=== PATIENT | male | born 1955 | race Caucasian/White ===

== ENCOUNTER → 2023-05-05 11:27 | Outpatient (REF) | payer MEDICARE, BC, SELFPAY ==
[2023-05-05 11:53] LABS: % Basophils 0.9 % (0-2); % Immature Granulocytes 0.5 % (0-0.5); % Lymphocytes 11.4 % (20.5-51.1); % Monocytes 9.7 % (1.7-9.3); % Neutrophils 75.5 % (42.2-75.2); Absolute Basophils 0.1 10^3/uL (0-0.2); Absolute Eosinophils 0.1 10^3/uL (0-0.7); Absolute Lymphocytes 0.6 10^3/uL (1.2-3.4); Absolute Monocytes 0.5 10^3/uL (0.1-0.6); Absolute Neutrophils 4.2 10^3/uL (1.4-6.5); Hematocrit 32.3 % (39.0-52.0); Hemoglobin 10.8 g/dL (13.0-18.0); Mean Corp Hgb Conc. 33.4 g/dL (33.0-37.0); Mean Corpuscular Hgb 33.2 pg (27.0-31.0); Mean Corpuscular Volume 99.4 fL (80.0-94.0); Nucleated Red Blood Cells % 0 % (-); Platelet Count 157 10^3/uL (130-400); Red Blood Cell Count 3.25 10^6/uL (4.70-6.10); Red Cell Dist. Width 13.8 % (11.5-14.5); White Blood Cell Count 5.5 10^3/uL (4.8-10.8)
[2023-05-05 12:16] LABS: ALT (SGPT) 84 U/L (0-50); AST (SGOT) 40 U/L (17-59); Albumin 4.1 g/dl (3.5-5.0); Alkaline Phosphatase 71 U/L (38-126); Blood Urea Nitrogen 37 mg/dl (9-20); Calcium 9.2 mg/dl (8.4-10.2); Carbon Dioxide 35 mmol/L (22-30); Chloride 94 mmol/L (98-107); Glucose 89 mg/dl (70-99); LDH 150 U/L (120-246); Potassium 4.4 mmol/L (3.5-5.1); Sodium 136 mmol/L (135-145); Total Bilirubin 0.7 mg/dl (0.2-1.3); Total Protein 6.1 g/dl (6.3-8.2); eGFR 7.33
== END ==
LOC: OIDL 11:27
PROVIDERS: ATTENDING PHYSICIAN Internal Medicine Hematology & Oncology
DX: C90.00 Multiple myeloma not having achieved remission (principal)
CPT/HCPCS: 80053; 83615; 85025

== ENCOUNTER → 2023-07-22 12:29 | Outpatient (REF) | payer MEDICARE, BC, OTHER, SELFPAY ==
[2023-07-22 14:03] LABS: Potassium 4.8 mmol/L (3.5-5.1)
== END ==
LOC: OLAB 12:29
PROVIDERS: ATTENDING PHYSICIAN Specialist
DX: N18.6 End stage renal disease (principal)
CPT/HCPCS: 84132

== ENCOUNTER → 2023-08-04 16:10 | Outpatient (REF) | payer MEDICARE, BC, OTHER, SELFPAY ==
[2023-08-04 10:28] LABS: % Basophils 0.9 % (0-2); % Eosinophils 2.1 % (0-6); % Lymphocytes 17.7 % (20.5-51.1); % Monocytes 8.7 % (1.7-9.3); % Neutrophils 70.6 % (42.2-75.2); Absolute Eosinophils 0.1 10^3/uL (0-0.7); Absolute Lymphocytes 0.8 10^3/uL (1.2-3.4); Absolute Monocytes 0.4 10^3/uL (0.1-0.6); Absolute Neutrophils 3.3 10^3/uL (1.4-6.5); Hematocrit 29.5 % (39.0-52.0); Hemoglobin 10.5 g/dL (13.0-18.0); Mean Corp Hgb Conc. 35.6 g/dL (33.0-37.0); Mean Corpuscular Hgb 33.8 pg (27.0-31.0); Mean Corpuscular Volume 94.9 fL (80.0-94.0); Mean Platelet Volume 9.2 fL (7.4-10.4); Platelet Count 125 10^3/uL (130-400); Red Blood Cell Count 3.11 10^6/uL (4.70-6.10); Red Cell Dist. Width 12.8 % (11.5-14.5); White Blood Cell Count 4.7 10^3/uL (4.8-10.8)
[2023-08-04 11:08] LABS: ALT (SGPT) 15 U/L (0-50); AST (SGOT) 18 U/L (17-59); Albumin 4.3 g/dl (3.5-5.0); Alkaline Phosphatase 65 U/L (38-126); Blood Urea Nitrogen 49 mg/dl (9-20); Calcium 9.7 mg/dl (8.4-10.2); Carbon Dioxide 32 mmol/L (22-30); Chloride 92 mmol/L (98-107); Glucose 118 mg/dl (70-99); LDH 156 U/L (120-246); Potassium 4.8 mmol/L (3.5-5.1); Sodium 136 mmol/L (135-145); Total Bilirubin 0.6 mg/dl (0.2-1.3); eGFR 6.89
== END ==
LOC: OIDL 16:10
PROVIDERS: ATTENDING PHYSICIAN Internal Medicine Hematology & Oncology
DX: C90.00 Multiple myeloma not having achieved remission (principal)
CPT/HCPCS: 80053; 83615; 85025

== ENCOUNTER → 2023-08-06 13:05 | Outpatient (REF) | payer MEDICARE, OTHER, SELFPAY | LOC: RAD 13:05 | PROVIDERS: ATTENDING PHYSICIAN Surgery Vascular Surgery; FAMILY PHYSICIAN Family Medicine | DX: I77.0 Arteriovenous fistula, acquired (principal) | CPT/HCPCS: 93990 ==

== ENCOUNTER → 2023-08-27 14:51 | Outpatient (REF) | payer MEDICARE, OTHER, SELFPAY | LOC: HWRAD 14:51 | PROVIDERS: ATTENDING PHYSICIAN Family Medicine | DX: R07.81 Pleurodynia (principal) | CPT/HCPCS: 71101 ==

== ENCOUNTER → 2023-10-23 16:45 | Outpatient (REF) | payer OTHER, SELFPAY ==
[2023-10-23 19:51] LABS: Potassium 5.9 mmol/L (3.5-5.1)
== END ==
LOC: OLAB 16:45
PROVIDERS: ATTENDING PHYSICIAN Specialist
DX: N18.6 End stage renal disease (principal)
CPT/HCPCS: 36415; 84132

== ENCOUNTER 2023-10-26 23:24 | Inpatient (IN) | payer MEDICARE, OTHER, SELFPAY ==
[2023-10-26 16:06] VITALS: BP 144/82
[2023-10-26 16:26] LABS: % Basophils 0.5 % (0-2); % Eosinophils 0.5 % (0-6); % Immature Granulocytes 0.3 % (0-0.5); % Monocytes 5.8 % (1.7-9.3); % Neutrophils 83.9 % (42.2-75.2); Absolute Lymphocytes 0.6 10^3/uL (1.2-3.4); Absolute Monocytes 0.4 10^3/uL (0.1-0.6); Absolute Neutrophils 5.2 10^3/uL (1.4-6.5); Hematocrit 28.9 % (39.0-52.0); Hemoglobin 10.2 g/dL (13.0-18.0); Mean Corp Hgb Conc. 35.3 g/dL (33.0-37.0); Mean Corpuscular Hgb 33.1 pg (27.0-31.0); Mean Corpuscular Volume 93.8 fL (80.0-94.0); Mean Platelet Volume 8.6 fL (7.4-10.4); Nucleated Red Blood Cells % 0 % (-); Platelet Count 128 10^3/uL (130-400); Red Blood Cell Count 3.08 10^6/uL (4.70-6.10); White Blood Cell Count 6.2 10^3/uL (4.8-10.8)
[2023-10-26 17:01] LABS: ALT (SGPT) 51 U/L (0-50); AST (SGOT) 22 U/L (17-59); Albumin 4.3 g/dl (3.5-5.0); Alkaline Phosphatase 74 U/L (38-126); Blood Urea Nitrogen 30 mg/dl (9-20); Calcium 9.5 mg/dl (8.4-10.2); Carbon Dioxide 37 mmol/L (22-30); Chloride 89 mmol/L (98-107); Glucose 154 mg/dl (70-99); Potassium 4.8 mmol/L (3.5-5.1); Sodium 134 mmol/L (135-145); Total Bilirubin 0.4 mg/dl (0.2-1.3); Total Protein 6.1 g/dl (6.3-8.2); eGFR 11.29
[2023-10-26 18:31] VITALS: BMI 31.2
[2023-10-26 19:00] VITALS: BP 154/93
--- NOTE | 2023-10-26 19:10 | ED.GENMED ---
History of Present Illness
General
Chief Complaint: Headache
Source: patient
Exam Limitations: none
Time Seen by Provider: 10/26/23 18:37
History of Present Illness
History of Present Illness:
This is a 67 year old male that comes in with c/o headache. States that this started 2-3 weeks ago and that the pain moves around. State that now it is across his forehead. States that occasionally it is in his Islam or in the back. States that
occasionally he feels he cant get his eye's to line up and he has to work on it. States that he took Tylenol at 1pm. Denies any fever, chills, chest pain, SOB, abd pain, nausea, vomiting, diarrhea, dizziness, urinary burning
Past History
Past History
ED Past Medical History: Arrthythmia (Atrial fib), Cancer (Skin CA), GERD, HTN, Renal failure (Dialysis M-W-F), Other (Multiple Myeloma, Neuropathy, Dizziness, Anemia) and Other (ESRD)
ED Past Surgical History: Cardiac (Mitral valve repair), Orthopedic (Right knee surgery) and Other (Right renal hemorrhage with intra-arterial embolectomy May 2021, Pancreatic cyst)
Social History
Tobacco: Non-smoker
Alcohol: Occasional
Personal:
Living: with family
Employment: Employed
Family History
Family History: Other (Noncontributory)
Review of Systems
Review of Systems
All Other Systems: ROS reviewed and negative except as documented in HPI and ROS
Constitutional: Reports no symptoms; Denies fever or chills
EENT: Reports no symptoms
Respiratory: Reports no symptoms; Denies cough or trouble breathing
Cardiac: Reports no symptoms; Denies chest pain
ABD/GI: Reports no symptoms; Denies abdominal pain, nausea, vomiting or diarrhea
: Reports no symptoms; Denies dysuria or urgency
Musculoskeletal: Reports no symptoms
Skin: Reports no symptoms
Neurological: Reports headache; Denies dizzy
Psychiatric: Reports no symptoms
Phy Exam
General Physical Exam
General Presentation: well appearing and no apparent distress
General age: appears stated age
General Skin: warm and dry
General Habitus: normal
General Mental: alert
General Hydration: appears well hydrated
ENT Exam
ENT Exam: TM's normal, pharynx normal and neck supple
Eye Exam
Eye Exam: EOMI
Cardiovascular Exam
Cardiovascular Exam: regular rate/rhythm, no edema, normal peripheral pulses and other (Murmur)
Pulmonary Exam
Pulmonary Exam: lungs clear, no respiratory distress, no rales, chest non tender, no crackles, no rhonchi and no cough
Gastrointestinal Exam
Gastrointestinal Exam: normal bowel sounds, non tender, soft, no organomegaly, no pulsatile mass and non distended
Musculoskeletal Exam
Musculoskeletal Exam: full ROM and no edema
Skin Exam
Skin Exam: normal color, warm/dry, no rash and no petechia
Psychiatric Exam
Psychiatric Exam: normal mood/affect
Course
Orders/Labs/Results
Orders:
Orders
10/26/23 16:11
Electrocardiogram (*1) Urgent
Reason for Study: Vertigo / Dizzy
EKG- Treatment ONCE
10/26/23 16:19
C-Reactive Protein Urgent
Comment: ADD ON
Complete Blood Count/With Diff Urgent
Comprehensive Metabolic Panel Urgent
Erythrocyte Sed Rate Urgent
Comment: ADD ON
10/26/23 19:09
CT Head W/wo Iv Contrast Urgent
Reason For Exam: headache
Acetaminophen 1000MG/100Ml [Ofirmev] 1,000 mg in 100 ml IV ONCE
Acetaminophen IV Indication:: ED Narcotic Naive Pt-ONCE
Dexamethasone Sod Phosphate [Decadron] 20 mg IV NOW STA
10/26/23 19:10
Add On- LAB Urgent
Tests Added?: Sed rate, CRP
10/26/23 22:35
Neurosurgery Consult Urgent
Consulting Provider: Dalia Stewart
Was physician already notified: Yes
10/26/23 23:00
Flush (0.9% Sodium Chloride) [Flush (Nss)] See Dose Instructions IV PER PROTOCOL
10/26/23 23:04
Admit/Transfer Patient As Directed
Co-Sign Provider:
Level of Care: Inpatient admission
Assign to:: Telemetry
Physician / Group: [email or web address]
Diagnosis: Large sellar mass , FANG
Reason for Telemetry: Arrhythmia
Date to Stop Telemetry: 10/29/23
Time to Stop Telemetry: 11:00
Reason for Hospitalization: Large sellar mass, HX Prx AF
Expected length of stay greater than two midnights?: Yes
ELOS- Estimated Length of Stay in days: 3
I certify the patient meets the requirements for IP care: Yes
10/26/23 23:06
Code Status As Directed
Resuscitation Status: Full Code
10/27/23 00:03
Acetaminophen [Tylenol] 650 mg PO Q4HPRN PRN
Bisacodyl [Dulcolax] 10 mg RECTAL [id number] PRN
Docusate W/Senna [Senokot-S] 1 tablet PO BIDPRN PRN
Polyethylene Glycol Powder [Miralax] 17 grams PO DAILYPRN PRN
10/27/23 00:03
Neurosurgery Consult Routine
Consulting Provider: Dalia Stewart
Was physician already notified: Yes
Reason for Consult: Large sellar mass with FANG
Activity As Directed
Activity Level: With Assistance
Pneumatic Compression Sleeves As Directed
Type: Knee high
Vital Signs As Directed
Frequency: Per unit guidelines
Weight As Directed
Frequency: Daily
DX Deep Vein Thrombosis Video Routine
10/27/23 Breakfast
Cholesterol Lowering
At Your Request: Full Participation
Fluid Restriction: 1000 mL/day (33 oz)
Cholesterol Lowering: Sodium, 2 Gram
Potassium, 2 gram
Basic Metabolic Panel IN AM
Complete Blood Count/No Diff IN AM
10/27/23 08:00
Diltiazem Extended Release [Cardizem Cd] 120 mg PO DAILY
Flecainide [Tambocor] 50 mg PO Q12
10/27/23 20:00
Irbesartan [Avapro] 75 mg PO DAILY@1999
10/29/23 11:00
DC Protocol for Telemetry ONCE
Abnormal Lab Results
10/26/23
16:19
RBC 3.08 L 10^6/uL
(4.70-6.10)
Hgb 10.2 L g/dL
(13.0-18.0)
Hct 28.9 L %
(39.0-52.0)
MCH 33.1 H pg
(27.0-31.0)
Plt Count 128 L 10^3/uL
(130-400)
Absolute Lymphs (auto) 0.6 L 10^3/uL
(1.2-3.4)
Neutrophils % 83.9 H %
(42.2-75.2)
Lymphocytes % 9.0 L %
(20.5-51.1)
ESR 24 H mm/hour
(0-20)
Sodium 134 L mmol/L
(135-145)
Chloride 89 L mmol/L
(98-107)
Carbon Dioxide 37 H mmol/L
(22-30)
BUN 30 H mg/dl
(9-20)
Creatinine 5.3 H* mg/dL
(0.7-1.3)
Glucose 154 H mg/dl
(70-99)
ALT 51 H U/L
(0-50)
C-Reactive Protein 11.10 H mg/L
(0.0-10.00)
Total Protein 6.1 L g/dl
(6.3-8.2)
10/26/23 16:19
10/26/23 16:19
H/H low but consistent with prior labs, Anemia, Thrombocytopenia, Chloride low. Carbon dioxide elevation. Chronic renal failure, Glucose nonfasting, Total protein slightly low. Sed rate 24 slightly elevated. CRP 11.10, Slightly elevated.
Vital Signs
Initial and Last Documented VS:
Initial Vital Signs
Temp Pulse Resp BP Pulse Ox
98.9 F 75 18 144/82 97
10/26/23 16:06 10/26/23 16:06 10/26/23 16:06 10/26/23 16:06 10/26/23 16:06
Last Documented Vital Signs
Temp Pulse Resp BP Pulse Ox
98.9 F 89 26 170/97 97
10/26/23 16:06 10/27/23 02:30 10/27/23 02:30 10/27/23 00:31 10/27/23 01:00
MDM/Problems Addressed
Differential Diagnosis Includes:
Headaches, Brain tumor
MDM/Problems Addressed:
This is a 67 year old male that comes in with c/o headache. States that his pain moves around and that sometimes he feels like he has to try and focus his eyes.
Will check labs and get CT head. Will give steroids and Tylenol for pain.
Spoke with Neurosurgery and patient can stay here for further evaluation. Will admit to hospitalist. Back into see patient. Explained that there is a mass seen on the CT scan and this will need further evaluaiton.
Chronic conditions affecting care: Kidney disease
Acute Exacerbation and/or Progression of Chronic Illness: Kidney disease
*Radiology
Radiology exam reviewed: radiology read reviewed (CT head-NO acute intracranial abnormality noted. Large sellar mass with diferential including craniopharyngiioma, pituitary macroadenoma, meningioma or less likely metastasis. This could be further
evaluated with contrast-enhanced MRI brain. )
*Pulse Oximetry
Patient hypoxic: no
*EKG
Interpreted by ED Provider?: Yes
Heart Rate: 64
Rate: normal
Rhythm: sinus
[place]: left axis deviation
Interval: normal interval and long QT
QRS Pattern: normal QRS
Ischemia: no ischemia
*Reading Specialist Interpretation
Rate: normal
Heart Rate: 62
*Critical Care Note
Total Time (30-74mins, 75-104mins- exclusive of procedures): Not Applicable
ED Attending Note
-
Portions of this chart may have been created with voice recognition software.� Occasional wrong word or��sound alike� substitutions may have occurred due to the inherent limitations of voice recognition software.
Discharge Plan
Departure
Patient Disposition: Admit
Date of Disposition: 10/26/23
Time of Disposition: 22:38
Admit to: Med/Surg
Presentation/result/management discussed w/ accepting MD/DO: Hospitalist
Patient with high blood pressure during this ER visit?: Yes
Condition: Good
Covid-19: Not Applicable
Discharge Problem:
Headache, Brain mass
Interventions
Interventions:
*Risk Screen - Suicide Last Done: 10/26/23 18:31
*General Assessment Last Done: 10/26/23 18:31
*Neglect/Abuse Screening Last Done: 10/26/23 18:31
ED- Fall Risk Assessment Last Done: 10/26/23 18:31
*ED COVID-19 Vaccine History Last Done: 10/26/23 18:31
ED- Neurological Assessment Last Done: 10/26/23 18:32
[2023-10-26] MEDS: OFIRMEV 100 IV (19:29)
[2023-10-26] MEDS: DECADRON 20 MG IV (19:29)
[2023-10-26 20:05] LABS: Erythrocyte Sed Rate 24 mm/hour (0-20)
--- NOTE | 2023-10-26 22:58 | HPS.HSE ---
Addendum entered and electronically signed by Georgi Adam MD 10/26/23 23:18:
Correction:
ASSESSMENT & PLAN
Pending Rx reconciliation
Large sellar mass without any signs of elevated increased intracranial pressure
Intermittent issues with focusing the vosion
<del>Persistent</del> <del>FANG</del> No FANG at time of my exam
POS horizontal Nystagmus with Lt Lateral gaze more than Rt lateral gaze - sustained for 3 -4 secs
Original Note:
Family Physician
-
Family Physician: Aguila Escobar
Chief Complaint
-
FANG
History of Present Illness
HPI
67M HX ESRD due to multiple myeloma, CHD on MWF via Rt UEX AVF, ACDz, Prx AFnot on AC seen at ER for FANG;
- acute onset stated 2-3 weeks ago
- aggravated by motion
- unable to focus both eyes
ROS
Denies any fever, chills, chest pain, SOB, abd pain, nausea, vomiting, diarrhea, dizziness, urinary burning
Medical History
Past Medical History
Past Medical History: Reports Other
Additional Past Medical History:
Arrthythmia (Atrial fib), Cancer (Skin CA), GERD, HTN, Renal failure (Dialysis -W-), Other (Multiple Myeloma, Neuropathy, Dizziness, Anemia) and Other (ESRD)
Past Surgical History: Reports Other
Additional Past Surgical History:
Cardiac (Mitral valve repair), Orthopedic (Right knee surgery) and Other (Right renal hemorrhage with intra-arterial embolectomy May 2021, Pancreatic cys
Social History
Tobacco: Non-smoker
Alcohol: Occasional
Personal:
Living: With Family
Family History
Family History: Not pertinent
Allergies / Home Medications
Allergies reflects when Allergies were last updated in [facility].
Home Medications with original date entered in [facility]
Allergy/Medication List:
Allergies
Allergy/AdvReac Type Severity Reaction Status Date / Time
levofloxacin [From Levaquin] Allergy Nausea / Verified 10/26/23 16:09
Vomiting
Home Medications
cinacalcet 30 mg tablet 30 mg PO QPM Kidney Disease 09/20/19
ferric citrate 210 mg iron tablet (Auryxia) 420 mg PO MEALS Kidney Disease 09/20/19
pantoprazole 40 mg tablet,delayed release 40 mg PO DAILY Gastrointestinal issue 09/20/19
acyclovir 200 mg capsule 200 mg PO BID Infection prevention 12/06/19
Aranesp 1 dose IV MOWEFR ANEMIA 02/04/21
pomalidomide 2 mg capsule (Pomalyst) 2 mg PO DAILY multiple myeloma ##0 02/06/21
Empliciti 0 mcg IV MONTHLY Cancer 05/02/21
cholecalciferol (vitamin D3) 50 mcg (2,000 unit) tablet 2,000 units PO DAILY Supplement 06/17/21
diphenhydramine HCl 50 mg/mL injection solution 50 mg IV MONTHLY Chemo premedication 06/17/21
flecainide 50 mg tablet 50 mg PO Q12 Arrhythmia 06/17/21
irbesartan 150 mg tablet 75 mg PO DAILY@2000 Blood pressure 06/17/21
acetaminophen 325 mg tablet 650 mg (2 x 325 mg) PO Q4HPRN PRN mild pain/FANG/temp> 100.4F 06/23/21
diltiazem HCl 120 mg capsule,extended release 24 hr 120 mg PO DAILY #30 caps 06/23/21
docusate sodium 100 mg capsule 100 mg PO BID 06/23/21
polyethylene glycol 3350 17 gram oral powder packet 17 grams PO DAILY 06/23/21
prednisone 20 mg tablet 60 mg (3 x 20 mg) PO DAILY #120 tabs 06/23/21
sennosides 8.6 mg tablet (senna) 2 tab PO HS 06/23/21
Review of Systems
-
Constitutional: Reports No Symptoms
EENT: Reports No Symptoms
Respiratory: Reports No Symptoms
Cardiac: Reports No Symptoms
Abdomen/GI: Reports No Symptoms
: Reports No Symptoms
Musculoskeletal: Reports No Symptoms
Skin: Reports No Symptoms
Neurological: Reports Headache
Endocrine: Reports No Symptoms
Hematologic/Lymphatic: Reports No Symptoms
Psych: Reports No Symptoms
Physical Exam
Vital Signs
Vital Signs
Temp Pulse Resp BP Pulse Ox
98.9 F 60 14 154/93 99
10/26/23 16:06 10/26/23 20:15 10/26/23 20:15 10/26/23 19:00 10/26/23 19:00
Physical Exam
General: Well Developed, Well Nourished and No Apparent Distress
HEENT: NormoCephalic, Moist mucous membranes, Atraumatic and Other (Horizontal Nystagmus with Lt Latwral gaze more than Rt lateral gaze )
Respiratory: Clear
Cardiac: S1/S2 and Regular Rhythm; No Murmur or Rub
GI: Soft, Non Tender, Non Distended and Normal Bowel Sounds; No Organomegaly
Rectal: Deferred by Provider
Musculoskeletal: No Clubbing, No Cyanosis and No Edema
Skin: No Rash
Neuro: Nonfocal/grossly intact
Laboratory Results
-
10/26/23 16:19
10/26/23 16:19
Laboratory Results
Total Bilirubin 0.4 mg/dl (0.2-1.3) 10/26/23 16:19
AST 22 U/L (17-59) 10/26/23 16:19
ALT 51 U/L (0-50) H 10/26/23 16:19
Alkaline Phosphatase 74 U/L (38-126) 10/26/23 16:19
Data Reviewed
-
CT Scan: Report Reviewed by me
Lab Data: Labs Reviewed by me
Old Records: Reviewed
Impression/Plan
-
Reviewed VS: HR 60 on FLORIST HELPER Diltiazem and Fecianide BP 155/95
Data
Hgb 10.2 - baseline mid 10s
ESR 24
Na 134
Cl 89
BIN 30
Cr 5.3 - baseline Cr 7s
BG 154
ALT 51
eGFR 11s
CRP 11
HCT
No acute intracranial abnormality noted.
Large sellar mass with differential including craniopharyngioma, pituitary macroadenoma, meningioma or less likely metastasis. - This could be further evaluated with contrast-enhanced MRI brain.
EKG
NORMAL SINUS RHYTHM
INCOMPLETE RIGHT BUNDLE BRANCH BLOCK
LEFT VENTRICULAR HYPERTROPHY WITH REPOLARIZATION ABNORMALITY ( R in aVL ,
Sokolow-Salazar , Ricki product )
PROLONGED QT
ABNORMAL ECG
WHEN COMPARED WITH ECG OF 17-JUN-2021 04:42,
[place] INTERVAL HAS DECREASED
INCOMPLETE RIGHT BUNDLE BRANCH BLOCK HAS REPLACED RIGHT BUNDLE BRANCH BLOCK
Confirmed by HAROLDO LABOY MD ([id number]) on 10/26/2023 4:58:09 PM
ASSESSMENT & PLAN
Pending Rx reconciliation
Large sellar mass without any signs of elevated increased intracranial pressure
Intermittent issues with focusing the vosion
Persistent FANG
POS horizontal Nystagmus with Lt Lateral gaze more than Rt lateral gaze - sustained for 3 -4 secs
DDX: craniopharyngioma, pituitary macroadenoma, meningioma or less likely metastasis.
- Tylenol PRN
- For contrast-enhanced MRI brain.
- Stable to admit at per N Surgeon
- Neuro Surg consulted
PHX Lt renal hemorrhage
Right Subcapsular Renal Hemorrhage (likely cystic rupture) s/p Rt renal embolization 05/30/21
ESRD on HD
- Stable
- for HD (MW schedule).
- Continue outpatient med regimen including cinacalcet, etc.
- Nephrology : to consult on Thursday
In NSR with SB
HX Prx AF
- Stable. In sinus sarah at present.
- Continue diltiazem and flecainide
Multiple Myeloma
- In clinical remission per patient.
- Remains on maintenance therapy
- followed by Dr. Edmondson.as outpatient.
Anemia of Chronic Disease
- follow Hgb
DVT Px: SCD
Code: Full
IP TLM
[2023-10-27] VITALS (16 sets, daily range): BP systolic 134–171; BP diastolic 77–105; BMI 31.2
[2023-10-27] MEDS: MELATONIN 5 MG PO (01:13)
[2023-10-27 04:42] LABS: Hemoglobin 10.3 g/dL (13.0-18.0); Mean Corp Hgb Conc. 35.5 g/dL (33.0-37.0); Mean Corpuscular Hgb 33.3 pg (27.0-31.0); Mean Corpuscular Volume 93.9 fL (80.0-94.0); Mean Platelet Volume 8.9 fL (7.4-10.4); Platelet Count 140 10^3/uL (130-400); Red Blood Cell Count 3.09 10^6/uL (4.70-6.10); Red Cell Dist. Width 13.8 % (11.5-14.5); White Blood Cell Count 7.1 10^3/uL (4.8-10.8)
[2023-10-27 07:06] LABS: Blood Urea Nitrogen 49 mg/dl (9-20); Calcium 9.9 mg/dl (8.4-10.2); Carbon Dioxide 29 mmol/L (22-30); Chloride 90 mmol/L (98-107); Estimated Creatinine Clearance 11 ml/min; Glucose 128 mg/dl (70-99); Sodium 132 mmol/L (135-145); eGFR 7.56
[2023-10-27] MEDS: CARDIZEM CD 120 MG PO (07:55)
--- NOTE | 2023-10-27 07:56 | W.PN.UPDATE ---
Update Note
Progress Note Update
Cross-coverage(I'm not the primary attending)-->I was notified patient potassium was 7. Noticed patient with end-stage renal disease. Stat EKG, calcium gluconate, Lasix, insulin and D50. Stat consult to nephrology-Discussed with nephrology.
Repeat potassium.
[2023-10-27 08:02] LABS: Glucose - Point of Care 126 mg/dl (70-99)
[2023-10-27] MEDS: DEXTROSE 50% SYRINGE 25 GRAMS IV (08:15)
[2023-10-27] MEDS: CALCIUM GLUCONATE 1000 MG IV (08:15)
[2023-10-27] MEDS: LASIX 20 MG IV (08:15)
[2023-10-27] MEDS: LOKELMA 10 GRAM PO (08:15)
[2023-10-27] MEDS: NOVOLIN R 5 UNITS IV (08:16)
--- NOTE | 2023-10-27 10:10 | W.PN.HOSP.TC ---
Today's Communication/Plan
-
Transfer to tertiary center
Assessment / Plan
Assessment / Plan
Impression:
Presentation with headache and vision changes.
Large optic chiasm mass
Severe hyperkalemia in HD patient
Conditions prior to admission:
Multiple myeloma on immunotherapy.
End-stage renal disease with HD Thursday
Paroxysmal atrial fibrillation.
-Not on anticoagulation due to hemorrhagic complications.
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
Essential hypertension.
Mitral valve repair.
Plan:
Large sellar mass confirmed with enhanced CT scan. Differential diagnosis including craniopharyngioma, pituitary macroadenoma, meningioma or less likely metastatic process.
Neurosurgery recommends transfer to tertiary center for further evaluation and treatment.
Unlikely will able to get an MRI given mitral valve wires in place
End-stage renal disease secondary to multiple myeloma on HD, Thursday
Severe hyperkalemia temporized with insulin, calcium gluconate
Short HD session planned off schedule to treat hyperkalemia
Paroxysmal atrial fibrillation.
Rate/rhythm control with diltiazem, flecainide
Not on anticoagulation due to hemorrhagic complications
Essential hypertension
On diltiazem and Avapro
Unknown clinical significance of ARB in regards to hyperkalemia and anuric patient
Multiple myeloma on immunotherapy, maintenance of prednisone
Prophylactic acyclovir
Anticipated Discharge: 24 - 48 hours
Subjective/Interval History
-
Date of Service: October 27, 2023
Objective Data
-
Labs:
Laboratory Results
10/27/23 10/27/23 10/27/23
04:33 06:22 10:25
WBC 7.1
Hgb 10.3 L
Hct 29.0 L
Plt Count 140
Sodium Cancelled 132 L
Potassium Cancelled 7.0 H* D Pending
Chloride Cancelled 90 L
Carbon Dioxide Cancelled 29
BUN Cancelled 49 H
Creatinine Cancelled 7.4 H*
Glucose Cancelled 128 H
Calcium Cancelled 9.9
10/27/23
12:25
WBC
Hgb
Hct
Plt Count
Sodium
Potassium Pending
Chloride
Carbon Dioxide
BUN
Creatinine
Glucose
Calcium
Vital Signs:
Vital Signs
Temp Pulse Resp BP Pulse Ox
98.9 F 72 13 154/86 97
10/26/23 16:06 10/27/23 06:45 10/27/23 06:45 10/27/23 06:17 10/27/23 01:00
Physical Exam
-
General: Well Developed and No Apparent Distress
HEENT: Normocephalic, Atraumatic and Moist Mucous Membranes
Respiratory: Clear to Auscultation
Cardiac: Regular Rhythm and S1/S2; Negative Murmur, Rub or Gallop
GI: Soft, Nontender, Nondistended and Normal Bowel Sounds; Negative Organomegaly
Rectal: Deferred by Provider
Musculoskeletal: No Clubbing, No Cyanosis and No Edema
Skin: Negative Rash
Neuro: Nonfocal/Grossly Intact
--- NOTE | 2023-10-27 11:10 | CM ---
CM reviewed chart.
CM introduced self and role. Spoke with patient and at bedside.
Dx: large sellar mass
Patient is independent with a cane.
He drives. will provide transportation on discharge.
He lives in a multilevel home. He has 2 steps to enter.
He has 2 sons for support. One in [place] and one local.
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
He denied any +SDOH's.
He received M/W/F HD.
DISCHARGE DISPOSTION:
Transfer to [facility]. Dr. Mckeon in Neuro ICU.
--- NOTE | 2023-10-27 11:18 | CM ---
Addendum entered by Rajni Clifton 10/27/23 11:26:
Spoke with Chantelle at [facility]. She shared that once a bed is available, she will call back to the ED to notify the nurse. CM will relay message to patient's ED bedside RN.
Original Note:
PCP: Aguila Escobar
Pharmacy: [facility] in [place]
--- NOTE | 2023-10-27 11:29 | CM ---
Addendum entered by Rajni Clifton 10/27/23 12:28:
Andrew RN notified that he gave neuro ASSISTANT SALES DIRECTOR at [facility] report. Patient will be going to room 1007. CM called transfer center to confirm. Transfer center confirmed that patient will be going to room 1007, [facility], 10th floor, city side.
Donte, coordinator cardiopulmonary services given room number and directions.
Donte confirmed a supervisor picking crew time of 2pm.
Above information relayed to OSIEL Morales and Dr. Freedman, attending physician.
Number for report (already given):
[phone].
Original Note:
OSIEL Morales, notified that [facility] transfer center will be calling with a bed number once a bed is available.
[2023-10-27 11:36] LABS: Potassium 5.6 mmol/L (3.5-5.1)
--- NOTE | 2023-10-27 15:22 | W.CON.NEPH ---
Consultation
-
Date/Time Consultation Requested: 10/27/2023 7:53AM
Date/Time Consultation Performed: 10/27/2023 3:23PM
Requesting Provider: Bala Wang
Performing Provider: Rose Contreras
Reason for Consultation: ESRD on HD
Medical History
-
Chief Complaint: ESRD on HD
History of Present Illness:
Mr. Booker Cannon is a 67YOM with PMH of ESRD on HD MWF at [facility], Afib, Skin Cancer, GERD, HTN, MM (leading to renal failure), dizziness, anemia who presents to the hospital for headaches and vision changes that started about 2-3 weeks ago.
He was found to have a mass in the optic chiasm and is planned for transfer to a tertiary care center for further management.
Unfortuantely, his K was elevated to 7 on labs this AM. He di recieve temporizing measures and we initiated a 2h/2k HD session for hyperK.
Past Medical History
Afib
Skin cancer
GERD
HTN
ESRD on HD MWF
MM
Neuropathy
dizziness
anemia
Past Surgical History: Cardiac (MVR), Orthopedic (R knee surgery ) and Other (Right renal hemorrhage with intra-arterial embolectomy May 2021, Pancreatic cys)
Social History
Tobacco: Non-Smoker
Alcohol: Occasional
Drug: None
Personal:
Living: With Family
Family History
Family History: Not Pertinent
Allergies / Home Medications
Allergy/AdvReac Type Severity Reaction Status Date / Time
levofloxacin [From Levaquin] Allergy Nausea / Verified 10/26/23 16:09
Vomiting
�Medication �Instructions �Recorded �Confirmed �Type
cinacalcet 30 mg tablet 30 mg PO HS Kidney Disease 09/20/19 10/26/23 History
ferric citrate 210 mg iron tablet 420 mg PO MEALS Kidney Disease 09/20/19 10/26/23 History
(Auryxia)
acyclovir 200 mg capsule 200 mg PO BID Infection prevention 12/06/19 10/26/23 History
irbesartan 150 mg tablet 150 mg PO HS Blood pressure 06/17/21 10/26/23 History
acetaminophen 325 mg tablet 650 mg (2 x 325 mg) PO Q4HPRN PRN 06/23/21 10/26/23 Rx
mild pain/FANG/temp> 100.4F
Mircera 1 dose SC WEEKLY PRN hgb<11 10/26/23 10/26/23 History
diltiazem HCl 240 mg 240 mg PO HS Arrhythmia 10/26/23 10/26/23 History
capsule,extended release 24 hr,
controlled
prednisone 5 mg tablet 5 mg PO DAILY Anti-Inflammatory 10/26/23 10/26/23 History
rosuvastatin 20 mg tablet 20 mg PO HS High Cholesterol 10/26/23 10/26/23 History
Review of Systems
-
History Source: Patient and Family
All other systems: Negative unless noted
Neurological: Dizzy and Headache
Physical Exam
Vital Signs
Vital Signs
Temp Pulse Resp BP Pulse Ox
98.9 F 84 23 134/86 97
10/26/23 16:06 10/27/23 14:00 10/27/23 14:00 10/27/23 13:45 10/27/23 01:00
Lab Results
WBC 7.1 10^3/uL (4.8-10.8) 10/27/23 04:33
RBC 3.09 10^6/uL (4.70-6.10) L 10/27/23 04:33
Hgb 10.3 g/dL (13.0-18.0) L 10/27/23 04:33
Hct 29.0 % (39.0-52.0) L 10/27/23 04:33
Plt Count 140 10^3/uL (130-400) 10/27/23 04:33
Sodium 132 mmol/L (135-145) L 10/27/23 06:22
Chloride 90 mmol/L (98-107) L 10/27/23 06:22
Carbon Dioxide 29 mmol/L (22-30) 10/27/23 06:22
BUN 49 mg/dl (9-20) H 10/27/23 06:22
Creatinine 7.4 mg/dL (0.7-1.3) H* 10/27/23 06:22
eGFR 7.56 10/27/23 06:22
Glucose 128 mg/dl (70-99) H 10/27/23 06:22
Calcium 9.9 mg/dl (8.4-10.2) 10/27/23 06:22
Albumin 4.3 g/dl (3.5-5.0) 10/26/23 16:19
Physical Exam
General: AOx3, No Distress and Nontoxic
HEENT: PERRL, EOMI, Anicteric, Conjunctivae Clear, Ear/Nose Intact, Hearing Normal, Oropharynx Clear/Moist, Dentition Intact, Facial Symmetry, Neck Supple, Trachea Midline, No JVD and No Thyromegaly
Respiratory: Clear, Normal Excursion and Nonlabored Respirations
Cardiac: S1/S2 and Regular Rate/Rhythm
Breast: Deferred by me
Abdomen: Soft, Nontender, Nondistended, Normal Bowel Sounds and No Hepatosplenomegaly
Rectal: Deferred by Provider
Genito-urinary: No Costovertebral Tender
Musculoskeletal: No Clubbing, No Cyanosis and No Edema
Skin: No Rash, Warm, Dry, No Clubbing, No Cyanosis, Normal Turgor and No Bruising
Neuro: Nonfocal/Grossly Intact
Hematologic/Lymphatic: No Cervical Lymphadenopathy
Psych: Mood/afflect pleasant, Insight/judgement good and Appropriate
Vascular Access: AVF
Assessment/Plan
-
Assessment:
ESRD on HD
optic chiasm mass
MM
pAfib
NUNES c/b R subcapsular hemorrhage requiring IR embolization
HTN
MVR
Plan:
-2h/2K HD session today
-plan for HD tomorrow per usual schedule
-likely transfer to [facility] for assistance in management of mass
== END 2023-10-27 22:48 | disposition short-term general hospital (02) | DRG 54 ==
LOC: ED 23:24
PROVIDERS: Emergency Medicine; Hospitalist; ADMITTING PHYSICIAN Internal Medicine; ATTENDING PHYSICIAN Internal Medicine; CONSULT PHYSICIAN Student in an Organized Health Care Education/Training Program; EMERGENCY PHYSICIAN Student in an Organized Health Care Education/Training Program; FAMILY PHYSICIAN Family Medicine
DX: D43.3 Neoplasm of uncertain behavior of cranial nerves (principal); N18.6 End stage renal disease; C90.00 Multiple myeloma not having achieved remission; E78.00 Pure hypercholesterolemia, unspecified; E87.5 Hyperkalemia; I48.0 Paroxysmal atrial fibrillation; I10 Essential (primary) hypertension; I25.10 Atherosclerotic heart disease of native coronary artery without angina pectoris; H55.09 Other forms of nystagmus; D63.0 Anemia in neoplastic disease; D63.1 Anemia in chronic kidney disease; G62.9 Polyneuropathy, unspecified; Z99.2 Dependence on renal dialysis; Z88.1 Allergy status to other antibiotic agents; Z85.828 Personal history of other malignant neoplasm of skin; Z79.61 Long term (current) use of immunomodulator; Z79.52 Long term (current) use of systemic steroids
CPT/HCPCS: 70470; 80048; 80053; 82962; 84132; 85025; 85027; 85652; 86140; 87070; 93005; 96374; 96375; 99285; P9047; Q9967

== ENCOUNTER → 2023-11-10 16:23 | Outpatient (REF) | payer MEDICARE, OTHER, SELFPAY ==
[2023-11-10 11:32] LABS: % Basophils 0.7 % (0-2); % Eosinophils 1.4 % (0-6); % Immature Granulocytes 0.9 % (0-0.5); % Lymphocytes 11.4 % (20.5-51.1); % Monocytes 7.2 % (1.7-9.3); % Neutrophils 78.4 % (42.2-75.2); Absolute Basophils 0.1 10^3/uL (0-0.2); Absolute Eosinophils 0.1 10^3/uL (0-0.7); Absolute Immature Granulocytes 0.1 10^3/uL (0-0.05); Absolute Lymphocytes 0.8 10^3/uL (1.2-3.4); Absolute Monocytes 0.5 10^3/uL (0.1-0.6); Absolute Neutrophils 5.4 10^3/uL (1.4-6.5); Hematocrit 24.1 % (39.0-52.0); Hemoglobin 8.4 g/dL (13.0-18.0); Mean Corp Hgb Conc. 34.9 g/dL (33.0-37.0); Mean Corpuscular Hgb 33.5 pg (27.0-31.0); Mean Platelet Volume 8.4 fL (7.4-10.4); Platelet Count 143 10^3/uL (130-400); Red Blood Cell Count 2.51 10^6/uL (4.70-6.10); Red Cell Dist. Width 13.6 % (11.5-14.5); White Blood Cell Count 6.9 10^3/uL (4.8-10.8)
[2023-11-10 16:03] LABS: ALT (SGPT) 30 U/L (0-50); AST (SGOT) 28 U/L (17-59); Albumin 4.1 g/dl (3.5-5.0); Alkaline Phosphatase 67 U/L (38-126); Blood Urea Nitrogen 37 mg/dl (9-20); Calcium 9.6 mg/dl (8.4-10.2); Carbon Dioxide 33 mmol/L (22-30); Chloride 92 mmol/L (98-107); Glucose 86 mg/dl (70-99); LDH 198 U/L (120-246); Potassium 3.8 mmol/L (3.5-5.1); Sodium 135 mmol/L (135-145); Total Bilirubin 0.7 mg/dl (0.2-1.3); Total Protein 5.8 g/dl (6.3-8.2); eGFR 7.21
== END ==
LOC: OIDL 16:23
PROVIDERS: ATTENDING PHYSICIAN Internal Medicine Hematology & Oncology
DX: C90.00 Multiple myeloma not having achieved remission (principal)
CPT/HCPCS: 80053; 83615; 85025

== ENCOUNTER → 2024-01-26 11:06 | Outpatient (REF) | payer MEDICARE, OTHER, SELFPAY ==
[2024-01-26 10:45] LABS: % Basophils 0.3 % (0-2); % Eosinophils 2.1 % (0-6); % Immature Granulocytes 0.3 % (0-0.5); % Lymphocytes 13.3 % (20.5-51.1); % Monocytes 9.7 % (1.7-9.3); % Neutrophils 74.3 % (42.2-75.2); Absolute Eosinophils 0.1 10^3/uL (0-0.7); Absolute Lymphocytes 0.8 10^3/uL (1.2-3.4); Absolute Monocytes 0.6 10^3/uL (0.1-0.6); Absolute Neutrophils 4.5 10^3/uL (1.4-6.5); Hematocrit 31.1 % (39.0-52.0); Hemoglobin 10.3 g/dL (13.0-18.0); Mean Corp Hgb Conc. 33.1 g/dL (33.0-37.0); Mean Corpuscular Hgb 30.4 pg (27.0-31.0); Mean Corpuscular Volume 91.7 fL (80.0-94.0); Mean Platelet Volume 9.4 fL (7.4-10.4); Platelet Count 98 10^3/uL (130-400); Red Blood Cell Count 3.39 10^6/uL (4.70-6.10); White Blood Cell Count 6.1 10^3/uL (4.8-10.8)
[2024-01-26 11:22] LABS: ALT (SGPT) 18 U/L (0-50); AST (SGOT) 19 U/L (17-59); Albumin 4.6 g/dl (3.5-5.0); Alkaline Phosphatase 58 U/L (38-126); Blood Urea Nitrogen 51 mg/dl (9-20); Calcium 9.9 mg/dl (8.4-10.2); Carbon Dioxide 35 mmol/L (22-30); Chloride 96 mmol/L (98-107); Glucose 88 mg/dl (70-99); LDH 215 U/L (120-246); Potassium 4.5 mmol/L (3.5-5.1); Sodium 143 mmol/L (135-145); Total Bilirubin 0.6 mg/dl (0.2-1.3); Total Protein 6.3 g/dl (6.3-8.2); eGFR 7.28
== END ==
LOC: OIDL 11:06
PROVIDERS: ATTENDING PHYSICIAN Internal Medicine Hematology & Oncology
DX: C90.00 Multiple myeloma not having achieved remission (principal)
CPT/HCPCS: 80053; 83615; 85025

== ENCOUNTER 2024-02-16 03:07 | Inpatient (IN) | payer MEDICARE, OTHER, SELFPAY ==
[2024-02-15 17:45] VITALS: BP 162/91
[2024-02-15 18:37] LABS: COVID-19 Antigen Negative (Negative)
[2024-02-15 18:39] LABS: ALT (SGPT) 18 U/L (0-50); AST (SGOT) 17 U/L (17-59); Albumin 4.2 g/dl (3.5-5.0); Alkaline Phosphatase 59 U/L (38-126); Blood Urea Nitrogen 29 mg/dl (9-20); Calcium 9.2 mg/dl (8.4-10.2); Carbon Dioxide 33 mmol/L (22-30); Chloride 94 mmol/L (98-107); Glucose 100 mg/dl (70-99); Potassium 4.6 mmol/L (3.5-5.1); Sodium 137 mmol/L (135-145); Total Bilirubin 0.5 mg/dl (0.2-1.3); Total Protein 5.9 g/dl (6.3-8.2); eGFR 12.03
[2024-02-15 18:41] LABS: % Basophils 0.2 % (0-2); % Immature Granulocytes 0.6 % (0-0.5); % Lymphocytes 3.4 % (20.5-51.1); % Monocytes 7.9 % (1.7-9.3); % Neutrophils 87.9 % (42.2-75.2); Absolute Lymphocytes 0.2 10^3/uL (1.2-3.4); Absolute Monocytes 0.4 10^3/uL (0.1-0.6); Absolute Neutrophils 4.4 10^3/uL (1.4-6.5); Hematocrit 25.6 % (39.0-52.0); Hemoglobin 8.6 g/dL (13.0-18.0); Mean Corp Hgb Conc. 33.6 g/dL (33.0-37.0); Mean Corpuscular Hgb 30.1 pg (27.0-31.0); Mean Corpuscular Volume 89.5 fL (80.0-94.0); Mean Platelet Volume 9.4 fL (7.4-10.4); Nucleated Red Blood Cells % 0 % (-); Platelet Count 109 10^3/uL (130-400); Red Blood Cell Count 2.86 10^6/uL (4.70-6.10); Red Cell Dist. Width 14.9 % (11.5-14.5)
--- NOTE | 2024-02-15 19:27 | ED.GENMED ---
History of Present Illness
General
Chief Complaint: Weakness
Source: patient and spouse
Exam Limitations: none
Time Seen by Provider: 02/15/24 19:03
Nursing documentation reviewed up to this point in time: agreed with
History of Present Illness
History of Present Illness:
68-year-old male with a past medical history of hypertension, atrial fibrillation, ESRD on dialysis, chronic anemia, adrenal insufficiency secondary to pituitary adenoma requiring resection earlier this year; he presents to the ER with his for
evaluation of generalized weakness, mild confusion and fever. Patient reportedly started with fever yesterday with low-grade temperature 100.1 �F, this morning had fever greater than 100.4 �F and was treated with Tylenol. She noticed that he was
more lethargic than usual. He has written instructions for stress dose of steroids to increase when ill�she gave him an additional 15 mg of hydrocortisone per these instructions and brought him to the emergency to be evaluated. Since arriving in
the ER reports patient appears much improved no longer lethargic or confused. He says that he has been coughing for the past 3 days. Has had associated congestion and mild sore throat. Occasional posttussive emesis. No chest pain, shortness
of breath. No abdominal pain or diarrhea. Denies any headache. His only other complaint on review of systems was that he will occasionally have flash of light in his visual field for a brief moment�this has been ongoing for the past day or 2.
Past History
Past History
ED Past Medical History: Arrthythmia (Atrial fib), Cancer (Skin CA), GERD, HTN, Renal failure (Dialysis M-W-F), Other (Multiple Myeloma, Neuropathy, Dizziness, Anemia) and Other (ESRD)
ED Past Surgical History: Cardiac (Mitral valve repair), Orthopedic (Right knee surgery) and Other (Right renal hemorrhage with intra-arterial embolectomy May 2021, Pancreatic cyst)
Social History
Tobacco: Non-smoker
Alcohol: Occasional
Personal:
Living: with family
Employment: Employed
Family History
Family History: Other (Noncontributory)
Review of Systems
Review of Systems
All Other Systems: ROS reviewed and negative except as documented in HPI and ROS
Constitutional: Reports fever, fatigue and chills
EENT: Reports sore throat, runny nose and other (Flashes and visual field)
Respiratory: Reports cough; Denies trouble breathing
Cardiac: Denies chest pain or palpitations
ABD/GI: Reports vomiting (Posttussive); Denies abdominal pain, nausea or diarrhea
: Denies flank pain
Musculoskeletal: Denies neck pain or back pain
Neurological: Denies dizzy or headache
Phy Exam
Physical Exam
Physical Exam:
General: Awake, alert, oriented x3; no acute distress
Head: Normocephalic, atraumatic
Eyes: Conjunctiva normal, EOMI, pupils equal round and reactive to light bilaterally
Throat: Airway intact, handling secretions
Neck: Trachea midline, no JVD
Lungs: Clear to auscultation bilaterally, no wheezing, rales, rhonchi; occasional coughing
Heart: Regular rate and rhythm, systolic murmur
Abd: Soft, non distended, nontender, no masses appreciated
Neuro: Cranial nerves grossly intact, speech fluid, motor and sensory intact in all extremities
Extremities: Right forearm fistula with palpable thrill; no edema in extremities, equal pulses in all extremities
Scores
Heart Failure Risk
Heart Failure Risk Score: Not Applicable
Heart Score for Chest Pain Patients
STEMI patient?: Not applicable
Withdrawal Assessment of Alcohol
Withdrawal Assessment Completed?: Not applicable
Course
Orders/Labs/Results
Orders:
Orders
02/15/24 17:54
COVID-19 Antigen Urgent
Source: Nasal Swab
Complete Blood Count/With Diff Urgent
Comprehensive Metabolic Panel Urgent
Cortisol, Random Urgent
Comment: ADDON
Influenza A+B Rapid Molecular Urgent
ANGELA Source: Nasal Swab
Specimen Description:
02/15/24 19:05
Electrocardiogram (*1) Urgent
Reason for Study: Fatigue / Weakness
EKG- Treatment ONCE
CR Chest - 2 Views Urgent
Comment:
Reason For Exam: weakness
02/15/24 19:15
CT Head W/o Iv Contrast Urgent
Comment:
Reason For Exam: weakness, flashers in vision--recent tumor resect
02/15/24 21:41
Urinalysis Reflex To Culture Urgent
Date Specimen was Collected: 02/15/24
Time Specimen was Collected: 21:40
Urine Microscopic Reflex Cult Urgent
02/15/24 23:49
Acetaminophen [Tylenol] 650 mg .ROUTE .STK-MED ONE
02/15/24 23:50
Acetaminophen [Tylenol] 650 mg PO NOW STA
02/16/24 00:58
Azithromycin 500 mg/250 ml [Zithromax Infusion] 500 mg in 250 ml IV NOW
CefTRIAXone [Rocephin] 1,000 mg IV NOW STA
Abnormal Lab Results
02/15/24 02/15/24
17:54 21:41
RBC 2.86 L 10^6/uL
(4.70-6.10)
Hgb 8.6 L g/dL
(13.0-18.0)
Hct 25.6 L %
(39.0-52.0)
RDW 14.9 H %
(11.5-14.5)
Plt Count 109 L 10^3/uL
(130-400)
Absolute Lymphs (auto) 0.2 L 10^3/uL
(1.2-3.4)
Immature Gran % 0.6 H %
(0-0.5)
Neutrophils % 87.9 H %
(42.2-75.2)
Lymphocytes % 3.4 L %
(20.5-51.1)
Chloride 94 L mmol/L
(98-107)
Carbon Dioxide 33 H mmol/L
(22-30)
BUN 29 H mg/dl
(9-20)
Creatinine 5.0 H* mg/dL
(0.7-1.3)
Glucose 100 H mg/dl
(70-99)
Total Protein 5.9 L g/dl
(6.3-8.2)
Ur Occult Blood Reflex Trace A
(Negative)
Urine RBC 7-10 A /HPF
(0-2)
Urine Glucose 1+ A
(Negative)
Urine Albumin (Reflex) 2+ A
(Neg - Trace)
02/15/24 17:54
02/15/24 17:54
Vital Signs
Initial and Last Documented VS:
Initial Vital Signs
Temp Pulse Resp BP Pulse Ox
37.4 C 80 18 162/91 94
02/15/24 17:45 02/15/24 17:45 02/15/24 17:45 02/15/24 17:45 02/15/24 17:45
Last Documented Vital Signs
Temp Pulse Resp BP Pulse Ox
37.7 C 96 18 185/98 96
02/16/24 02:04 02/16/24 02:06 02/15/24 17:45 02/15/24 23:58 02/15/24 23:58
MDM/Problems Addressed
Differential Diagnosis Includes:
Viral illness, pneumonia, UTI, sinusitis, adrenal insufficiency, brain bleed less likely
MDM/Problems Addressed:
68-year-old male with history as documented including recent neurosurgery for pituitary adenoma this past summer and chronic adrenal insufficiency on daily steroids who presents to the ER with his for evaluation of confusion and lethargy
associate with fever over the past 24 hours; symptoms have improved since treatment with Tylenol. He says he has been coughing for the past few days and has had some mild URI symptoms. Vitals and exam as above. He had labs sent in triage
including a CBC which showed stable anemia and thrombocytopenia. He had a CMP showing elevated BUN and creatinine in keeping with his chronic renal failure but electrolytes are acceptable�he had a full dialysis session today. COVID and flu sent in
triage were negative. Added cortisol level, chest x-ray. Check CT head. Will monitor closely reassess after the above.
Cortisol acceptable, chest x-ray no clear pneumonia. CT head negative for any acute pathology. Clinical reassessment patient's feels he is slightly more confused. He does appear slightly more lethargic. He has been coughing throughout ED
visit. His heart rate is over 90 and he is once again spiked a fever. He is at risk of bacteremia, blood culture sent off. Given his mild confusion and febrile illness we will plan to treat empirically for pneumonia and admit for observation and
can follow blood cultures. Case discussed with hospitalist for admission.
Chronic conditions affecting care:
ESRD, adrenal insufficiency
Acute Exacerbation and/or Progression of Chronic Illness:
Hypertensive
Acute Exacerbation and/or Progression of Chronic Illness: HTN
*Radiology
Radiology exam reviewed: radiology read reviewed
*Pulse Oximetry
Patient hypoxic: no
*Critical Care Note
Total Time (30-74mins, 75-104mins- exclusive of procedures): Not Applicable
Data Reviewed
Source: patient, records and spouse
Patient Management
Discussion with other providers: Hospitalist (Discussed with hospitalist)
Escalation/DeEscalation of care consider admission/obs:
Admission indicated
ED Attending Note
-
Portions of this chart may have been created with voice recognition software.� Occasional wrong word or��sound alike� substitutions may have occurred due to the inherent limitations of voice recognition software.
Discharge Plan
Departure
Patient Disposition: Admit
Date of Disposition: 02/16/24
Time of Disposition: 02:05
Admit to doctor: Cornel
Presentation/result/management discussed w/ accepting MD/DO: Hospitalist
Discharge Problem:
Fever, Pneumonia
Prescriptions:
No Action
cinacalcet 30 MG tablet
30 mg PO HS
Auryxia 210 MG tablet
420 mg PO MEALS
acyclovir 200 MG capsule
200 mg PO BID
irbesartan 150 MG tablet
150 mg PO HS
acetaminophen 325 MG tablet
650 mg PO Q4HPRN PRN (Reason: mild pain/FANG/temp> 100.4F) 0RF
diltiazem HCl 240 mg capsule,ext.rel 24h degradable
240 mg PO HS
prednisone 5 mg Tablet
5 mg PO DAILY
rosuvastatin 20 mg tablet
20 mg PO HS
Mircera
1 dose SC WEEKLY PRN (Reason: hgb<11)
Referrals:
Aguila Escobar, DO [Family Provider] -
Interventions
Interventions:
*Risk Screen - Suicide Last Done: 02/15/24 17:45
*General Assessment Last Done: 02/15/24 17:45
*Neglect/Abuse Screening Last Done: 02/15/24 17:45
*ED COVID-19 Vaccine History Last Done: 02/16/24 02:06
ED- Cardiac Assessment Last Done: 02/15/24 20:46
ED- Neurological Assessment Last Done: 02/15/24 20:46
ED- Pulmonary Assessment Last Done: 02/15/24 20:47
Discharge Date and Time
Print Language: ESTONIAN
[2024-02-15 21:52] LABS: Urine Albumin 2+ (Neg - Trace); Urine Bilirubin Negative (Negative); Urine Character Clear (Clear); Urine Color Yellow; Urine Glucose 1+ (Negative); Urine Ketone Negative (Negative); Urine Leukocyte Negative (Negative); Urine Nitrite Negative (Negative); Urine Occult Blood Trace (Negative); Urine Urobilinogen Negative (Neg - 1+)
[2024-02-15 22:00] LABS: Cortisol, Random 3.4 ug/dl
[2024-02-15 22:05] LABS: Urine Squamous Cell 0-2 /LPF (Few)
[2024-02-15 22:06] LABS: Urine White Cell 0-2 /HPF (0-5)
[2024-02-15 23:58] VITALS: BP 185/98
[2024-02-16] VITALS (14 sets, daily range): BP systolic 152–181; BP diastolic 86–103; BMI 29.4; BMI 28.0
[2024-02-16] MEDS: TYLENOL 650 MG PO ×3 (00:28→23:10)
[2024-02-16] MEDS: ROCEPHIN 1000 MG IV (01:24)
[2024-02-16] MEDS: ZITHROMAX INFUSION 250 IV (01:26)
--- NOTE | 2024-02-16 02:41 | HPS.HSE ---
Family Physician
-
Family Physician: Aguila Escobar
Chief Complaint
-
Fever and weakness
History of Present Illness
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
emergency department with fever and weakness.
Patient reports that he started feeling ill about 3 days ago. Reports initially some cough and congestion. He denied having any difficulty breathing. He denies any sick contacts. He denied any nausea or vomiting. He denies any diarrhea. He was
tolerating p.o. Yesterday started having low-grade temperature. Today his temperature went up to 100.4 degrees at home. He became much more fatigued and less responsive. Denied any headache, blurry vision or double vision. He denies any neck
stiffness or tenderness. Denies any rash. She denies any focal deficits. Patient had dialysis today and was not hypotensive. He had less than usual amount of UF. Postdialysis he had a fever higher than 100.4. He was given additional doses of
prednisone for adrenal insufficiency by his console operator instruction. Patient was then brought to the emergency department. According to spouse by time he arrived in the emergency department he was somewhat dry improved.
He had a temp of 100.8, blood pressure was 180/90 and was satting 96% on room air. Chest x-ray shows no clear focal infiltrates. CT of the head was negative. Got a white count of 5.0 hemoglobin of 8.6 which is unchanged from prior. Sodium was
137, potassium 4, BUN and creatinine consistent with ESRD. COVID test was negative. Influenza test was negative. Patient has negative urinalysis.
Medical History
Past Medical History
Past Medical History: Reports Arrhythmia (Paroxysmal atrial fibrillation), Cancer (Multiple myeloma), GERD, HTN, Renal Failure (ESRD and on HD Thursday), Valvular Disease (Mitral valve insufficiency status post repair) and Other
(pituitary adenoma)
Past Surgical History: Reports Cardiac (Mitral valve repair), Orthopedic (Right knee surgery) and Other (Pituitary mass resection)
Social History
Tobacco: Non-smoker
Alcohol: Occasional
Personal:
Living: With Family
Employment: Employed
Family History
Family History: Not pertinent
Allergies / Home Medications
Allergies reflects when Allergies were last updated in [employer].
Home Medications with original date entered in [employer]
Allergy/Medication List:
Allergies
Allergy/AdvReac Type Severity Reaction Status Date / Time
levofloxacin [From Levaquin] Allergy Nausea / Verified 10/26/23 16:09
Vomiting
Home Medications
cinacalcet 30 mg tablet 30 mg PO HS Kidney Disease 09/20/19
ferric citrate 210 mg iron tablet (Auryxia) 420 mg PO MEALS Kidney Disease 09/20/19
acyclovir 200 mg capsule 200 mg PO BID Infection prevention 12/06/19
irbesartan 150 mg tablet 150 mg PO HS Blood pressure 06/17/21
acetaminophen 325 mg tablet 650 mg (2 x 325 mg) PO Q4HPRN PRN mild pain/FANG/temp> 100.4F 06/23/21
Mircera 1 dose SC WEEKLY PRN hgb<11 10/26/23
diltiazem HCl 240 mg capsule,extended release 24 hr, controlled 240 mg PO HS Arrhythmia 10/26/23
prednisone 5 mg tablet 5 mg PO DAILY Anti-Inflammatory 10/26/23
rosuvastatin 20 mg tablet 20 mg PO HS High Cholesterol 10/26/23
Review of Systems
-
History Source: Patient and Family
Constitutional: Reports Fever and Fatigue
EENT: Reports No Symptoms
Respiratory: Reports Cough
Cardiac: Reports No Symptoms
Abdomen/GI: Reports No Symptoms
: Reports No Symptoms
Musculoskeletal: Reports No Symptoms
Skin: Reports No Symptoms
Neurological: Reports No Symptoms
Endocrine: Reports No Symptoms
Hematologic/Lymphatic: Reports No Symptoms
Psych: Reports No Symptoms
Physical Exam
Vital Signs
Vital Signs
Temp Pulse Resp BP Pulse Ox
99.8 F 96 18 185/98 96
02/16/24 02:04 02/16/24 02:06 02/15/24 17:45 02/15/24 23:58 02/15/24 23:58
Physical Exam
General: Well Developed, Comfortable and Fever
HEENT: NormoCephalic, Anicteric, Moist mucous membranes and Atraumatic
Respiratory: Crackles (left basal crackles)
Cardiac: S1/S2 and Regular Rhythm
Breast: Deferred by me
GI: Soft, Non Tender, Non Distended and Normal Bowel Sounds
Rectal: Deferred by Provider
Genito-urinary: Deferred by me
Musculoskeletal: No Clubbing, No Cyanosis and No Edema
Skin: Warm
Neuro: AO x 3 and Nonfocal/grossly intact
Hematologic/Lymphatic: No Lymphadenopathy
Psych: Calm
Laboratory Results
-
02/15/24 17:54
02/15/24 17:54
Laboratory Results
Total Bilirubin 0.5 mg/dl (0.2-1.3) 02/15/24 17:54
AST 17 U/L (17-59) 02/15/24 17:54
ALT 18 U/L (0-50) 02/15/24 17:54
Alkaline Phosphatase 59 U/L (38-126) 02/15/24 17:54
Data Reviewed
-
Diagnostic Radiology: Image Personally Visualized and interpreted and Report Reviewed by me
Lab Data: Labs Reviewed by me
Old Records: Reviewed
Impression/Plan
-
IMPRESSION:
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
fibrillation not on anticoagulation and hypertension who is presenting with fever weakness cough congestion. No clear focal source of infection. History and examination suggest pneumonia. Negative COVID and influenza. Random cortisol within
normal range.
PLAN:
1. Fever - Suspect respiratory but no clear source.
- admit to med/surg
- will get additional studies including blood cultures, procalcitonin for now
- CT chest w/o contrast if further eval needed.
- continue IV ceftriaxone w/ po doxycycline for now
- increase steroids to hydrocortisone 25mg q 8 for now
2. Pituitary resection w/adrenal insufficiency
- has no diabetes insipidus or hypothyroid
- continue stress dose steroids as above
3. pAFIB
- continue diltiazem and flecainide
- no ac
4. HTN
- continueirbesatan 150 and nifedipine 30 hs
5. ESRD - s/p HD today. Stable.
- renal diet and fluid restriction
- renal consult
- continue cinacalcet and phos binder
6. MM
- acylovir ppx 200mg
DVT PPX - heparin sq
Code status - full code
--- NOTE | 2024-02-16 05:11 | EDRN ---
at 04:40 pt 02 sat 88 % on R/A w/ resp rate high 30's low 40's. [facility].
[2024-02-16] MEDS: OFIRMEV 100 IV (05:21)
[2024-02-16 05:59] LABS: Hematocrit 26.7 % (39.0-52.0); Hemoglobin 8.7 g/dL (13.0-18.0); Mean Corp Hgb Conc. 32.6 g/dL (33.0-37.0); Mean Corpuscular Hgb 29.9 pg (27.0-31.0); Mean Corpuscular Volume 91.8 fL (80.0-94.0); Platelet Count 93 10^3/uL (130-400); Red Blood Cell Count 2.91 10^6/uL (4.70-6.10); Red Cell Dist. Width 15.3 % (11.5-14.5); White Blood Cell Count 5.3 10^3/uL (4.8-10.8)
[2024-02-16] MEDS: FLUSH (NSS) 1 FLUSH IV (06:04)
[2024-02-16 06:14] LABS: Blood Urea Nitrogen 42 mg/dl (9-20); Calcium 9.1 mg/dl (8.4-10.2); Carbon Dioxide 31 mmol/L (22-30); Chloride 94 mmol/L (98-107); Estimated Creatinine Clearance 11 ml/min; Glucose 76 mg/dl (70-99); Sodium 137 mmol/L (135-145)
[2024-02-16 06:28] LABS: Procalcitonin 3.01 ng/ml (0.0-0.25)
[2024-02-16] MEDS: AFRIN NASAL SPRAY 1 SPRAYS NASAL (07:55)
[2024-02-16] MEDS: PHOSLO 1334 MG PO ×2 (07:57→12:51)
[2024-02-16] MEDS: CARDIZEM CD 240 MG PO (07:58)
[2024-02-16] MEDS: VIBRAMYCIN 100 MG PO ×2 (07:58→21:11)
[2024-02-16] MEDS: HEPARIN SC (08:00)
[2024-02-16] MEDS: SOLU-CORTEF 25 MG IV ×2 (08:01→18:15)
[2024-02-16] MEDS: TAMBOCOR 50 MG PO ×2 (08:30→21:07)
[2024-02-16] MEDS: ZOVIRAX 200 MG PO ×2 (08:30→21:07)
[2024-02-16] MEDS: COMPAZINE 10 MG IV ×2 (08:52→23:41)
[2024-02-16 09:40] LABS: Magnesium 2.1 mg/dl (1.6-2.3)
--- NOTE | 2024-02-16 10:04 | W.CON.NEPH ---
Consultation
-
Date/Time Consultation Requested: 02/16/2024 7:00 AM
Date/Time Consultation Performed: 02/16/2024 10:00 AM
Requesting Provider: Dr. Unger
Performing Provider: Dr. Leiva
Reason for Consultation: End-stage renal disease
Medical History
-
Chief Complaint: End-stage renal disease
History of Present Illness:
Mr. Booker Cannon is a 68YOM with PMH of ESRD on HD MWF at [facility], Afib on flecainide and diltiazem, Skin Cancer, GERD, HTN, MM (leading to renal failure), secondary hyperparathyroidism maintained on Cinacalcet who presented to the emergency
room last evening after dialysis with fevers and dizziness. The patient states he started feeling ill about 3 days ago initially with some cough and congestion. He started to become more fatigued and less responsive when he was brought to the
emergency room yesterday. The patient had been more recently diagnosed for adenoma of the pituitary and underwent mass resection a couple months prior. Nephrology was consulted for his end-stage renal disease managment.
Past Medical History
PAfib
Skin cancer
GERD
HTN
ESRD on HD MWF
MM
Neuropathy
dizziness
anemia
NUNES with history of right renal hemorrhage
Pituitary adenoma resection
Hyperphosphatemia
Secondary hyperparathyroidism
Right upper extremity AVF
Past Surgical History: Cardiac (MVR), Orthopedic (R knee surgery ) and Other (Right renal hemorrhage with intra-arterial embolectomy May 2021, Pancreatic cys)
Social History
Tobacco: Non-Smoker
Alcohol: Occasional
Drug: None
Personal:
Living: With Family
Family History
Family History: Not Pertinent
Allergies / Home Medications
Allergy/AdvReac Type Severity Reaction Status Date / Time
levofloxacin [From Levaquin] Allergy Nausea / Verified 10/26/23 16:09
Vomiting
�Medication �Instructions �Recorded �Confirmed �Type
cinacalcet 30 mg tablet 30 mg PO HS Kidney Disease 09/20/19 02/16/24 History
acyclovir 200 mg capsule 200 mg PO BID Infection prevention 12/06/19 02/16/24 History
acetaminophen 325 mg tablet 650 mg (2 x 325 mg) PO Q4HPRN PRN 06/23/21 02/16/24 Rx
mild pain/FANG/temp> 100.4F
prednisone 5 mg tablet 5 mg PO DAILY Anti-Inflammatory 10/26/23 02/16/24 History
rosuvastatin 20 mg tablet 20 mg PO HS High Cholesterol 10/26/23 02/16/24 History
calcium acetate 667 mg tablet 1,334 mg PO AC Kidney Disease 02/16/24 02/16/24 History
diltiazem HCl 240 mg 240 mg PO DAILY Blood Pressure 02/16/24 02/16/24 History
capsule,extended release 24 hr
flecainide 100 mg tablet 100 mg PO Q12H Arrhythmia 02/16/24 02/16/24 History
nifedipine 30 mg tablet,extended 30 mg PO QPM Blood Pressure 02/16/24 02/16/24 History
release 24 hr
Review of Systems
-
History Source: Patient
All other systems: Negative unless noted
Constitutional: Fever and Fatigue
EENT: Other (Dizziness)
Respiratory: Trouble Breathing
Cardiac: No Symptoms
Abdomen/GI: No Symptoms
: No Symptoms
Musculoskeletal: No Symptoms
Skin: No Symptoms
Neurological: Dizzy, Weakness, Numbness and Other (Decreased responsiveness)
Endocrine: No Symptoms
Hematologic/Lymphatic: No Symptoms
Physical Exam
Vital Signs
Vital Signs
Temp Pulse Resp BP Pulse Ox
99.7 F 89 30 153/95 92
02/16/24 07:38 02/16/24 07:58 02/16/24 07:38 02/16/24 07:58 02/16/24 07:38
Lab Results
02/16/24 05:46
02/16/24 05:46
WBC 5.3 10^3/uL (4.8-10.8) 02/16/24 05:46
RBC 2.91 10^6/uL (4.70-6.10) L 02/16/24 05:46
Hgb 8.7 g/dL (13.0-18.0) L 02/16/24 05:46
Hct 26.7 % (39.0-52.0) L 02/16/24 05:46
Plt Count 93 10^3/uL (130-400) L 02/16/24 05:46
Sodium 137 mmol/L (135-145) 02/16/24 05:46
Potassium 5.0 mmol/L (3.5-5.1) 02/16/24 05:46
Chloride 94 mmol/L (98-107) L 02/16/24 05:46
Carbon Dioxide 31 mmol/L (22-30) H 02/16/24 05:46
BUN 42 mg/dl (9-20) H 02/16/24 05:46
Creatinine 7.1 mg/dL (0.7-1.3) H* 02/16/24 05:46
eGFR 7.90 02/16/24 05:46
Glucose 76 mg/dl (70-99) 02/16/24 05:46
Calcium 9.1 mg/dl (8.4-10.2) 02/16/24 05:46
Albumin 4.2 g/dl (3.5-5.0) 02/15/24 17:54
Physical Exam
General: AOx3, Nontoxic , lethargic and short of breath
HEENT: PERRL, EOMI, Anicteric, Conjunctivae Clear, Ear/Nose Intact, Hearing Normal, Oropharynx Clear/Moist, Dentition Intact, Facial Symmetry, Neck Supple, Neck: Trachea Midline, No JVD and No Thyromegaly, no Bruits
Respiratory: Coarse with crackles and rhonchi and wheezes bilaterally
Cardiac: S1/S2 and Regular Rate/Rhythm
Breast: Deferred by me
Abdomen: Soft, Nontender, Nondistended, Normal Bowel Sounds and No Hepatosplenomegaly
Rectal: Deferred by Provider
Genito-urinary: No Costovertebral Tenderness
Extremities: No Clubbing, No Cyanosis and plus pitting edema
Skin: No Rash or open lesions
Neuro: Nonfocal/Grossly Intact, CN II-XII (Intact) and Strength (Musculoskeletal exam 5 out of 5 both upper and lower extremities, some decreased neurosensory in the lower extremities
Hematologic/Lymphatic: No Cervical Lymphadenopathy, No Submandibular Lymphadenopathy and No Supraclavicular Lymphadenopathy
Psych: Mood/afflect flat, Insight/judgement lethargic
Vascular: plus 2 pedal and radial pulses
Vascular Access: AVF (Right upper extremity)
Data Reviewed
-
Radiology: Image Personally Visualized and interpreted (Chest x-ray personally reviewed showed no evidence of pneumonia or congestive heart failure by my review)
Medical Tests (Nuc Med, Echo etc): Other (EKG report reviewed showed sinus rhythm with right bundle branch block)
Labs: Labs Reviewed by me (BMP CBC)
Old Records: Reviewed (Reviewed previous nephrology consultation from October 2023 for end-stage renal disease in setting of hyperkalemia)
Assessment/Plan
-
Impression:
Fever/dizziness decreased responsiveness
End-stage renal disease on Thursday dialysis cath
Anemia
History of multiple myeloma
History of NUNES
History of right renal hemorrhage
History of hyperphosphatemia
History of secondary hyperparathyroid
Hypertension
Paroxysmal atrial fibrillation
History of pituitary adenoma resection with adrenal insufficiency
Plan:
HD tomorrow,orders provided, will push ultrafiltration as hemodynamically tolerated this patient appears to be volume overloaded on exam
FR and sodium and potassium restriction in diet
RENEE for anemia
Maintain diltiazem, avapro, and EDW for hypertension
Currently on IV hydrocortisone for physiologic stress given history of adenoma resection
Blood cultures pending re: fever of unknown origin negative for flu and COVID
Maintain phosphorus binders with meals in regards to hyperphosphatemia
Antibiotics which include azithromycin and Rocephin do not need to be renally adjusted
Maintain Cinacalcet for secondary hyperparathyroidism
Concern for possible pulmonary process evolving despite clear chest: will have follow up CT of chest
Will also check ANCA serologies given history of NUNES
--- NOTE | 2024-02-16 10:36 | W.PN.HOSP.TC ---
Today's Communication/Plan
-
Continue antibiotics
Await cultures
CT chest
Continue steroids
Assessment / Plan
Assessment / Plan
Gen-AAOx3, NAD
HEENT-NC, AT, anicteric, clear oral mm
Neck-supple
CV-reg, no M, +S1/S2
Lungs-clear B/L
Abd-soft, NT, ND
Ext-no edema
Musculoskeletal-no cyanosis, clubbing
Skin-warm and dry
Neuro-grossly non-focal
Psych-calm, cooperative
Sepsis -possibly due to pneumonia. Check blood cultures. COVID and influenza negative. Continue antibiotics. Check CT chest to rule out infiltrate. Check urinary antigens. Chest x-ray read as clear. Symptoms of fever, cough, nasal congestion
started on Thursday. No sick contacts.
History of pituitary adenoma resection -October of this year. Done at [facility]. Denies hypothyroidism and is not on thyroid replacement.
Continue stress dose steroids. History of adrenal sufficiency prior to diagnosis of pituitary adenoma.
Paroxysmal atrial fibrillation
Essential hypertension
Hyperlipidemia -on Crestor.
History of multiple myeloma
ESRD on dialysis -Thursday/Thursday/Thursday. Nephrology consulted.
Chronic normocytic anemia -due to ESRD. Hemoglobin 8.7 today, monitor for now.
Chronic thrombocytopenia -unclear etiology. Monitor for now.
Full code
updated at the bedside.
Anticipated Discharge: > 48 hours
Subjective/Interval History
-
Date of Service: February 16, 2024
Patient seen and examined. Complaining of cough, shortness of breath, nausea.
Objective Data
-
Labs:
Laboratory Results
02/16/24
05:46
WBC 5.3
Hgb 8.7 L
Hct 26.7 L
Plt Count 93 L
Sodium 137
Potassium 5.0
Chloride 94 L
Carbon Dioxide 31 H
BUN 42 H
Creatinine 7.1 H*
Glucose 76
Calcium 9.1
Vital Signs:
Vital Signs
Temp Pulse Resp BP Pulse Ox
100.6 F H 93 24 153/95 94
02/16/24 10:05 02/16/24 10:05 02/16/24 10:05 02/16/24 07:58 02/16/24 10:05
Review of Systems
-
History Source: Patient
All other systems: Reviewed and negative
--- NOTE | 2024-02-16 11:03 | CM ---
CM reviewed medical records. CM met with patient and in room. CM confirmed demographics. Patient lives independently with . Patient does not have a history of VN or SNF. Patient does use a cane at time when not feeling well. Patient has HD
at [facility]. Patient is active with his PCP Dr. Stallings. Patient uses [facility] for medication services.
PLAN: home with return to outpatient HD
[2024-02-16] MEDS: HEPARIN 5000 UNITS SC ×2 (18:15→23:11)
--- NOTE | 2024-02-16 18:52 | W.PN.UPDATE ---
Update Note
Progress Note Update
I was called to evaluate the patient for high fever
Patient is hemodynamically stable with no hypotension. SaO2 95% on 4 to 5 L of oxygen
Patient is being treated for presumed pneumonia, receiving ceftriaxone & doxycycline
Blood cultures pending
Patient was able to wake up and answer a few questions but seemed to fall back asleep
No headache
No neck rigidity
Will place the patient on IV cefepime and IV vancomycin
ID evaluation for further management
Place rectal Tylenol as needed if unable to take oral
Agree with high level of care placement
d/w nursing staff
I updated attending Dr. Mckeon.
[2024-02-16] MEDS: PHOSLO PO (19:06)
--- NOTE | 2024-02-16 19:17 | PHA.VAN.IN ---
Assessment
- Assessment
Renal Function: Patient has ESRD, on chronic Hemodialysis
Concomitant Antimicrobials: CEFEPIME
- Previous Dosing Experience
Previous Regimen: NONE
Plan
- Plan
Initial / Loading Dose: 1500MG
Maintenance Regimen: DOSING BY RANDOM LEVELS
Monitoring: RANDOM VANCOMYCIN LEVEL 02/17/24 AM
Pharmacokinetics Vancomycin I
- -
Patient Age: 68
Patient Sex: Male
Vancomycin Day #: 1
Indication: Bacteremia
Requesting Provider: AUNDREA
Pertinent Antimicrobial Allergies:
Allergies
levofloxacin [From Levaquin] Allergy (Verified 10/26/23 16:09)
Nausea / Vomiting
Height / Weight:
Height 5 ft 10 in
Actual Weight 92.986 kg
- Vital Signs / Lab Results
Temp Pulse Resp BP Pulse Ox
103.1 F H 92 34 181/95 98
02/16/24 19:09 02/16/24 18:45 02/16/24 18:45 02/16/24 18:31 02/16/24 14:00
Lab Results - Hematology
02/15/24 02/16/24
17:54 05:46
WBC 5.0 5.3
Lab Results - Chemistry
02/15/24 02/16/24
17:54 05:46
BUN 29 H 42 H
Creatinine 5.0 H* 7.1 H*
Estimated Creat Clear 11
Albumin 4.2
Lab Results - Urine
02/15/24
21:41
Urine Nitrite (Reflex) Negative
Leukocyte Esterase Rfl Negative
Urine WBC (Reflex) 0-2
Ur Squamous Epith Cells 0-2
Microbiology Results
02/16/24 13:47 Legionella Urinary Antigen - Final
Urine Negative for Legionella pneumophila Serogroup 1 antigen.
A negative result does not rule out the possiblity of
Legionella infection due to other serogroups or species of
Legionella. Clinical correlation is recommended.
Streptococcus pneumoniae Antigen (M - Final
Negative for Streptococcus pneumoniae antigen.
A negative result does not exclude infection with
Streptococcus pneumoniae. Clinical correlation is
recommended.
02/15/24 17:54 Influenza Types A & B (MEJIA) - Final
Nasal Swab Negative for Influenza A & B, NAAT
Negative results must be combined with clinical observations
and patient history.
Nucleic Acid Amplification test (NAAT)performed on the
[employer] NOW platform.
--- NOTE | 2024-02-16 19:21 | W.PN.UPDATE ---
Update Note
Progress Note Update
Recommended by the pharmacist to change Cefepime from 1gm IV q8h to 1gm IV q24h as recommended for patients on HD.
[2024-02-16 19:49] LABS: TSH Reflex To Free T4 1.73 uIU/ml (0.47-4.68)
[2024-02-16] MEDS: MAXIPIME 1000 MG IV (20:18)
[2024-02-16] MEDS: VANCOCIN 530 MG IV (20:18)
[2024-02-16] MEDS: STERILE WATER FOR INJECTION 10 ML IV (20:19)
[2024-02-16] MEDS: SENSIPAR 30 MG PO (21:07)
[2024-02-16] MEDS: CRESTOR 20 MG PO (21:07)
[2024-02-16] MEDS: PROCARDIA XL (EXTENDED RELEASE) 30 MG PO (21:07)
[2024-02-16] MEDS: AVAPRO 150 MG PO (21:07)
[2024-02-16] MEDS: SOLU-CORTEF 50 MG IV (23:11)
--- NOTE | 2024-02-16 23:25 | RESPNOTE ---
Pt is order HS CPAP. RT in room trying to hold conversation with about his home CPAP settings and is unaware. Pt has a vomit bag on his bed and asked him if he was feeling nausea. He stated he has been. I asked him if he would be able to pull off
the mask if need to spit up/puke and he barley could hold a conversation with me. He is in and out of sleep currently and unable to hold full on conversation long enough for me to feel comfortable to place him on the CPAP and feel comfortable enough
to have him pull mask off if he needed. I spoke to RN about my concerns with him being nausea and wearing the machine. RN was to give medication to see if we can help his nausea. RN/Pt to report back if he's feeling better to try get him on the CPAP
at sometime tonight.
--- NOTE | 2024-02-16 23:35 | RESPNOTE ---
Pt order HS CPAP.
[2024-02-17] VITALS (33 sets, daily range): BP systolic 128–183; BP diastolic 72–123
--- NOTE | 2024-02-17 04:08 | RESPNOTE ---
Attempted to place pt on CPAP at this time. RT adjust settings to get pt comfortable. State he could't explain to why it was not comfortable, in and out again trying to have a conversation. Spoke to RN.
[2024-02-17 04:32] LABS: % Basophils 0.2 % (0-2); % Immature Granulocytes 0.3 % (0-0.5); % Lymphocytes 3.8 % (20.5-51.1); % Monocytes 6.2 % (1.7-9.3); % Neutrophils 89.5 % (42.2-75.2); Absolute Lymphocytes 0.2 10^3/uL (1.2-3.4); Absolute Monocytes 0.4 10^3/uL (0.1-0.6); Absolute Neutrophils 5.2 10^3/uL (1.4-6.5); Hematocrit 26.3 % (39.0-52.0); Hemoglobin 8.5 g/dL (13.0-18.0); Mean Corp Hgb Conc. 32.3 g/dL (33.0-37.0); Mean Corpuscular Hgb 29.6 pg (27.0-31.0); Mean Corpuscular Volume 91.6 fL (80.0-94.0); Mean Platelet Volume 9.1 fL (7.4-10.4); Nucleated Red Blood Cells % 0 % (-); Platelet Count 97 10^3/uL (130-400); Red Blood Cell Count 2.87 10^6/uL (4.70-6.10); Red Cell Dist. Width 15.2 % (11.5-14.5); White Blood Cell Count 5.8 10^3/uL (4.8-10.8)
--- NOTE | 2024-02-17 04:56 | PTCARENOTE ---
Received patient from the ED overnight. Tmax 101.9 prn tylenol given. Patient lethargic and confused at times- falls asleep mid conversation. IV abx administered.
[2024-02-17 04:59] LABS: ALT (SGPT) 55 U/L (0-50); AST (SGOT) 53 U/L (17-59); Albumin 4.1 g/dl (3.5-5.0); Alkaline Phosphatase 68 U/L (38-126); Blood Urea Nitrogen 63 mg/dl (9-20); Calcium 9.1 mg/dl (8.4-10.2); Carbon Dioxide 22 mmol/L (22-30); Chloride 95 mmol/L (98-107); Estimated Creatinine Clearance 9 ml/min; Glucose 101 mg/dl (70-99); Potassium 5.4 mmol/L (3.5-5.1); Sodium 136 mmol/L (135-145); Total Bilirubin 0.7 mg/dl (0.2-1.3); Total Protein 5.9 g/dl (6.3-8.2); eGFR 6.19
[2024-02-17 05:04] LABS: Vancomycin Random 16.1 ug/ml
[2024-02-17] MEDS: TAMBOCOR 50 MG PO ×2 (08:01→21:12)
[2024-02-17] MEDS: HEPARIN 5000 UNITS SC ×3 (08:02→23:39)
[2024-02-17] MEDS: ZOVIRAX 200 MG PO ×2 (08:03→21:12)
[2024-02-17] MEDS: VIBRAMYCIN 100 MG PO ×2 (08:03→21:12)
[2024-02-17] MEDS: SOLU-CORTEF 50 MG IV ×3 (08:03→23:26)
[2024-02-17] MEDS: PHOSLO PO ×2 (08:04→14:31)
--- NOTE | 2024-02-17 08:56 | W.PN.HOSP.TC ---
Today's Communication/Plan
-
Continue antibiotics
Continue steroids
Dialysis
ID consult
PT consult
Assessment / Plan
Assessment / Plan
Gen-AAOx3, NAD
HEENT-NC, AT, anicteric, clear oral mm
Neck-supple
CV-reg, no M, +S1/S2
Lungs-mild bilateral rhonchi
Abd-soft, NT, ND
Ext-no edema
Musculoskeletal-no cyanosis, clubbing
Skin-warm and dry
Neuro-grossly non-focal
Psych-calm, cooperative
Acute TME -present on admission and likely due to sepsis, pneumonia. Mental status improved today compared to yesterday. Appears back to baseline.
Acute hypoxic respiratory failure -due to sepsis, pneumonia. Present on admission. Requiring 6 L of nasal cannula oxygen last night, improved to 4 L now. Wean down oxygen as able.
Sepsis -due to multilobar community-acquired pneumonia. Clinically improving. COVID and influenza negative. Blood cultures negative so far. Continue antibiotics. Urinary antigens negative.
CT chest shows multiple scattered clustered nodules/opacities within both lungs.
Acappella, incentive spirometry. ID consulted.
He has never had the pneumonia vaccine, recommend outpatient follow-up with PCP to administer.
History of pituitary adenoma resection -October of this year. Done at [facility]. Denies hypothyroidism and is not on thyroid replacement. TSH 1.73.
Continue stress dose steroids, getting IV hydrocortisone 50 mg every 8 hours. History of adrenal sufficiency prior to diagnosis of pituitary adenoma.
Paroxysmal atrial fibrillation -on flecainide. Not on anticoagulation possibly due to recent brain surgery.
Essential hypertension -recheck blood pressure after dialysis. Currently elevated. Dialysis nurse requesting to hold diltiazem dose this morning before dialysis.
Hyperlipidemia -on Crestor.
History of multiple myeloma
ESRD on dialysis -Thursday/Thursday/Thursday. Nephrology consulted.
Chronic normocytic anemia -due to ESRD. Hemoglobin 8.7 today, monitor for now.
Chronic thrombocytopenia -unclear etiology. Monitor for now.
Full code
PT consult
Anticipated Discharge: 24 - 48 hours
Subjective/Interval History
-
Date of Service: February 17, 2024
Patient seen and examined. Overall feeling better. Still with cough. Denies shortness of breath. Getting dialysis now.
Objective Data
-
Labs:
Laboratory Results
02/17/24 02/17/24
04:13 04:14
WBC 5.8
Hgb 8.5 L
Hct 26.3 L
Plt Count 97 L
Sodium 136
Potassium 5.4 H
Chloride 95 L
Carbon Dioxide 22
BUN 63 H
Creatinine 8.7 H*
Glucose 101 H
Calcium 9.1
Total Bilirubin 0.7
AST 53
ALT 55 H
Alkaline Phosphatase 68
Vital Signs:
Vital Signs
Temp Pulse Resp BP Pulse Ox
98.7 F 76 29 155/89 94
02/17/24 07:25 02/17/24 08:15 02/17/24 08:15 02/17/24 08:15 02/17/24 08:15
I&O
02/16/24 02/17/24 02/18/24
06:59 06:59 06:59
Intake Total 770 / 770
Balance 770 / 770
Review of Systems
-
History Source: Patient
All other systems: Reviewed and negative
--- NOTE | 2024-02-17 09:13 | CON.ID ---
Consultation
-
Date/Time Consultation Requested: 02/16/24 18:58
Date/Time Consultation Performed: 02/17/24 9:13
Requesting Provider: Dr Kong
Performing Provider: Dr Tyler
Reason for Consultation: Fever
Chief Complaint / Past History
Chief Complaint
fever and weakness
History of Present Illness
Mr Cannon is a 68 year old male with history of Multiple myeloma, ESRD on HD MWF who presented here 02/15 for fever, weakness and productive cough. Symptoms began three days prior to arrival with cough and congestion. No: shortness of breath,
nausea, vomiting, diarrhea, anorexia, headache, blurry vision, neck stiffness, rash. No sick contacts. Was able to tolerate HD on the day of arrival. He took extra prednisone for adrenal insufficiency per his cable cutter and swager.
In the ER tmax was 103.2 orally, BP has been running hypertensive, wbc initially 5 and now 5.8, hgb 8.6 now 8.5 plt 109 and now 97, L shift present on arrival and persists, k 4.6 on arrival today 5.4, co2 22 and now 22, cr 8.7, t bili 0.7, ast 53,
alt 55, alk phos 68, random cortisol at 6 pm on arrival 3.4, ua no pyuria, covid ag negative, 02/15 CT chest without contrast: nodular opacities most prominent in the RUL, 02/14 CT head w/o contrast: no acute intracranial abnormality, 02/14 CXR: no
infiltrates; legionella and s pneumo urine ags negative, blood cultures no growth at 24 hours, flu swab negative, covid ag negative. 02/15 cross coverage hospitalist asked to evaluate for fever, gave tylenol switched doxycycline/ceftriaxone to vanc
and cefepime, ID was consulted, today patient has been returned to ceftriaxone and doxycycline by primary hospitalist.
Past History
Additional Past Medical History:
adrenal insufficiency
Reports Arrhythmia (Paroxysmal atrial fibrillation), Cancer (Multiple myeloma), GERD, HTN, Renal Failure (ESRD and on HD Thursday), Valvular Disease (Mitral valve insufficiency status post repair) and Other (pituitary adenoma)
Additional Past Surgical History:
resection of pituitary adenoma - oct 2023
(Mitral valve repair), Orthopedic (Right knee surgery)
Allergy History:
levofloxacin [From Levaquin] Allergy (Verified 10/26/23 16:09)
Nausea / Vomiting
Medications Reviewed: Yes
Social History
Tobacco: Non-Smoker
Alcohol: Occasional
Personal:
Family History
Family History: Not Pertinent
Review of Systems
Review of Systems
General: Fever and Chills
All systems: All other systems were reviewed and were negative (except as listed in HPI)
Vital Signs
Temp Pulse Resp BP Pulse Ox
98.7 F 76 29 155/89 94
02/17/24 07:25 02/17/24 08:15 02/17/24 08:15 02/17/24 08:15 02/17/24 08:15
Physical Exam
Physical Exam
Constitutional: No Acute Distress and Other (some brief rigors)
Cardiovascular: Regular Rate and S1/S2; Negative Murmur or Rub
Pulmonary: Symmetric, Coarse, Non Labored and Other (productive cough); Negative Wheezes, Rales or Rhonchi
Gastrointestinal: Soft, Non Tender, Non Distended and Normal Bowel Sounds
Skin: Warm and Dry; Negative Rash or Jaundice
Neurological: Awake and Alert
Lines: Other (fistula)
Lab / Diagnostic Study Results
02/17/24 04:13
02/17/24 04:14
Abs Immat Gran (auto) 0.0 10^3/uL (0-0.05) 02/17/24 04:13
Absolute Neuts (auto) 5.2 10^3/uL (1.4-6.5) 02/17/24 04:13
Absolute Lymphs (auto) 0.2 10^3/uL (1.2-3.4) L 02/17/24 04:13
Absolute Monos (auto) 0.4 10^3/uL (0.1-0.6) 02/17/24 04:13
Absolute Basos (auto) 0.0 10^3/uL (0-0.2) 02/17/24 04:13
Immature Gran % 0.3 % (0-0.5) 02/17/24 04:13
Neutrophils % 89.5 % (42.2-75.2) H 02/17/24 04:13
Lymphocytes % 3.8 % (20.5-51.1) L 02/17/24 04:13
Monocytes % 6.2 % (1.7-9.3) 02/17/24 04:13
Eosinophils % 0.0 % (0-6) 02/17/24 04:13
Basophils % 0.2 % (0-2) 02/17/24 04:13
Procalcitonin 3.01 ng/ml (0.0-0.25) H* 02/16/24 05:46
Ur Squamous Epith Cells 0-2 /LPF (Few) 02/15/24 21:41
Microbiology Results
Micro:
02/16/24 05:25 MRSA Screen - Final
Nose No Methicillin Resistant Staphylococcus aureus isolated.
02/16/24 06:24 Blood Culture - Preliminary
Blood/Venous No Growth in 24 hours- Final report to follow
02/16/24 05:46 Blood Culture - Preliminary
Blood/Venous No Growth in 24 hours- Final report to follow
02/16/24 13:47 Legionella Urinary Antigen - Final
Urine Negative for Legionella pneumophila Serogroup 1 antigen.
A negative result does not rule out the possiblity of
Legionella infection due to other serogroups or species of
Legionella. Clinical correlation is recommended.
Streptococcus pneumoniae Antigen (M - Final
Negative for Streptococcus pneumoniae antigen.
A negative result does not exclude infection with
Streptococcus pneumoniae. Clinical correlation is
recommended.
02/15/24 17:54 Influenza Types A & B (MEJIA) - Final
Nasal Swab Negative for Influenza A & B, NAAT
Negative results must be combined with clinical observations
and patient history.
Nucleic Acid Amplification test (NAAT)performed on the
[employer] NOW platform.
Assessment / Plan
Community Acquired Pneumonia
ESRD on HD
Adrenal Insufficiency on stress dose steroids
- sputum culture if able to obtain one
- blood cultures x2 in progress - no growth to date
- legionella/s pneumo/covid/influneza screens all negative
- procalcitonin will always be elevated in ESRD and is not helpful in management - recommend against using in this setting
- agree with ceftriaxone and doxycycline - would generally give 48-72 hours observation on any given regimen before considering a switch; patients was started on ceftriaxone and azithromycin at 1AM 02/15; fever curve does appear to be improving today
- no need for cooling blanket outside of critical care; tylenol to treat symptoms of fevers if bothersome to patient.
follow clinically
[2024-02-17] MEDS: AFRIN NASAL SPRAY 1 SPRAYS NASAL (09:16)
[2024-02-17] MEDS: RETACRIT 10000 UNITS IV (09:47)
--- NOTE | 2024-02-17 10:02 | W.PN.NEPH.HD ---
Assessment
-
Seen on HD. mental status improved. on abx for PNA. VSS, access ok
ID pending
d/w
Progress Note - Hemodialysis
-
Date of Service: February 17, 2024
Duration: 30 minutes and 3 hours
Potassium Bath: 2
Calcium Bath: 2.5
Opti-Dialyzer: 160
Ultrafiltration: Other (1kg)
Blood Flow: 400
Dialysate Flow: 600
Heparin: 0
EPO: [id number] units
[2024-02-17] MEDS: CARDIZEM CD 240 MG PO (10:50)
[2024-02-17] MEDS: PHOSLO 1334 MG PO ×2 (10:53→17:09)
[2024-02-17] MEDS: TYLENOL 650 MG PO ×2 (10:53→18:09)
--- NOTE | 2024-02-17 12:10 | PTCARENOTE ---
Assumed care of patient at beginning of this shift from previous RN. HD RN in room approximately 0800. Requested by HD RN to hold cardizem initially d/t HD; Dr Mckeon notified via TT. BP remained elevated during treatment; cardizem given. Patient
Ox3 but states he has no memory of events from last night in the ED. Lungs coarse with rhonchi; frequent harsh moist cough, productive of white sputum. ID in room and obtained sputum specimen which was sent. Remains afebrile. Tylenol given for
generalized body aches. See worklist for full assessment and vital signs; see MAR for med administration. remains at bedside.
--- NOTE | 2024-02-17 14:46 | PTCARENOTE ---
Patient off HD at approx 12 noon.
[2024-02-17] MEDS: ROCEPHIN 2000 MG IV (17:08)
[2024-02-17] MEDS: STERILE WATER FOR INJECTION 20 ML IV (17:08)
[2024-02-17] MEDS: VENTOLIN NEBULES 2.5 MG INH (18:18)
--- NOTE | 2024-02-17 18:24 | PTCARENOTE ---
Patient tachypneic with RR 29-40, using accessory muscles with audible wheezing. T100.5. Tylenol given as ordered. POx 89-90%; increased to 5L n/c and POx 91%. Resp therapist up to give tx. Dr Mckeon notified via TT then called to speak with this
nurse. Reviewed dose of solumedrol. Instructed to continue to observe, may increase to high flow if needed. RT updated. Patient's in room and updated on plan of care.
[2024-02-17] MEDS: SENSIPAR 30 MG PO (21:12)
[2024-02-17] MEDS: CRESTOR 20 MG PO (21:12)
[2024-02-17] MEDS: AVAPRO 150 MG PO (21:12)
[2024-02-17] MEDS: PROCARDIA XL (EXTENDED RELEASE) 30 MG PO (21:14)
[2024-02-18] VITALS (27 sets, daily range): BP systolic 111–154; BP diastolic 67–90; PULSE 71; O2SAT 91
--- NOTE | 2024-02-18 05:46 | PTCARENOTE ---
No acute events overnight. Remains on 5 liters NC. Afebrile. T max 99.7
[2024-02-18 06:50] LABS: % Immature Granulocytes 0.6 % (0-0.5); % Monocytes 6.5 % (1.7-9.3); % Neutrophils 88.9 % (42.2-75.2); Absolute Lymphocytes 0.2 10^3/uL (1.2-3.4); Absolute Monocytes 0.3 10^3/uL (0.1-0.6); Absolute Neutrophils 4.2 10^3/uL (1.4-6.5); Hematocrit 26.8 % (39.0-52.0); Hemoglobin 8.5 g/dL (13.0-18.0); Mean Corp Hgb Conc. 31.7 g/dL (33.0-37.0); Mean Corpuscular Hgb 29.1 pg (27.0-31.0); Mean Corpuscular Volume 91.8 fL (80.0-94.0); Nucleated Red Blood Cells % 0 % (-); Platelet Count 129 10^3/uL (130-400); Red Blood Cell Count 2.92 10^6/uL (4.70-6.10); White Blood Cell Count 4.8 10^3/uL (4.8-10.8)
[2024-02-18 07:09] LABS: ALT (SGPT) 114 U/L (0-50); AST (SGOT) 90 U/L (17-59); Albumin 3.9 g/dl (3.5-5.0); Alkaline Phosphatase 87 U/L (38-126); Blood Urea Nitrogen 56 mg/dl (9-20); Calcium 9.1 mg/dl (8.4-10.2); Carbon Dioxide 29 mmol/L (22-30); Chloride 93 mmol/L (98-107); Estimated Creatinine Clearance 11 ml/min; Glucose 111 mg/dl (70-99); Potassium 4.9 mmol/L (3.5-5.1); Sodium 136 mmol/L (135-145); Total Bilirubin 0.4 mg/dl (0.2-1.3); Total Protein 5.7 g/dl (6.3-8.2); eGFR 8.18
[2024-02-18] MEDS: ZOVIRAX 200 MG PO ×2 (08:02→21:11)
[2024-02-18] MEDS: VIBRAMYCIN 100 MG PO ×2 (08:02→21:10)
[2024-02-18] MEDS: TAMBOCOR 50 MG PO ×2 (08:02→21:10)
[2024-02-18] MEDS: CARDIZEM CD 240 MG PO (08:02)
[2024-02-18] MEDS: PHOSLO 1334 MG PO ×3 (08:02→17:46)
[2024-02-18] MEDS: HEPARIN 5000 UNITS SC ×3 (08:03→23:43)
[2024-02-18] MEDS: SOLU-CORTEF 50 MG IV (08:03)
[2024-02-18] MEDS: AFRIN NASAL SPRAY 1 SPRAYS NASAL (08:07)
--- NOTE | 2024-02-18 08:32 | W.PN.ID1 ---
Date of Service
Date of Service: February 18, 2024
Today's Communication
- attempt to obtain better sputum culture
- continue with ceftriaxone and doxycycline today, likely transition to a fully oral regimen tomorrow
Assessment / Plan
Community Acquired Pneumonia
Fever - improving
ESRD on HD
Adrenal Insufficiency on stress dose steroids
- attempt to obtain better sputum culture
- blood cultures x2 in progress - no growth to date
- continue with ceftriaxone and doxycycline today, likely transition to a fully oral regimen tomorrow
follow clinically
Chief Complaint
-: Fever and Pneumonia
Subjective / Review of Systems
fever curve improving
bp stable - not requiring pressors
resp culture was contaminated
cough less productive
'I feel better'
Vital Signs / Physical Exam
Vital Signs
Vital Signs
Temp Pulse Resp BP Pulse Ox
99.1 F 75 30 142/86 92
02/18/24 07:12 02/18/24 08:02 02/18/24 06:48 02/18/24 08:02 02/18/24 07:00
Physical Exam
Constitutional: No Acute Distress and Chronically Ill
Cardiovascular: Regular Rate and S1/S2; Negative Murmur or Rub
Pulmonary: Symmetric, Coarse, Non Labored and Other (productive sounding cough); Negative Wheezes or Rales
Gastrointestinal: Soft, Non Tender, Non Distended and Normal Bowel Sounds
Skin: Warm and Dry; Negative Rash or Jaundice
Objective Data
Lab Data
Lab Results
02/18/24 04:20
02/18/24 04:20
Estimated Creat Clear 11 ml/min 02/18/24 04:20
Total Bilirubin 0.4 mg/dl (0.2-1.3) 02/18/24 04:20
AST 90 U/L (17-59) H 02/18/24 04:20
ALT 114 U/L (0-50) H 02/18/24 04:20
Alkaline Phosphatase 87 U/L (38-126) 02/18/24 04:20
Most recent labs reviewed.
Micro Results:
02/16/24 06:24 Blood Culture - Preliminary
Blood/Venous No Growth in 48 hours- Final report to follow
02/16/24 05:46 Blood Culture - Preliminary
Blood/Venous No Growth in 48 hours- Final report to follow
02/17/24 10:44 Respiratory Culture - Final
Sputum Gram Stain - Final
02/16/24 05:25 MRSA Screen - Final
Nose No Methicillin Resistant Staphylococcus aureus isolated.
02/16/24 13:47 Legionella Urinary Antigen - Final
Urine Negative for Legionella pneumophila Serogroup 1 antigen.
A negative result does not rule out the possiblity of
Legionella infection due to other serogroups or species of
Legionella. Clinical correlation is recommended.
Streptococcus pneumoniae Antigen (M - Final
Negative for Streptococcus pneumoniae antigen.
A negative result does not exclude infection with
Streptococcus pneumoniae. Clinical correlation is
recommended.
02/15/24 17:54 Influenza Types A & B (MEJIA) - Final
Nasal Swab Negative for Influenza A & B, NAAT
Negative results must be combined with clinical observations
and patient history.
Nucleic Acid Amplification test (NAAT)performed on the
[employer] platform.
--- NOTE | 2024-02-18 10:48 | W.PN.NEPH.PH ---
Today's Communication / Plan
-
Dialysis tomorrow
Assessment/Plan
-
Impression:
Fever/dizziness decreased responsiveness
End-stage renal disease on Thursday dialysis cath
Anemia
History of multiple myeloma
History of NUNES
History of right renal hemorrhage
History of hyperphosphatemia
History of secondary hyperparathyroid
Hypertension
Paroxysmal atrial fibrillation
History of pituitary adenoma resection with adrenal insufficiency
Plan:
HD tomorrow
Challenge weight
FR and sodium and potassium restriction in diet
RENEE for anemia
Maintain diltiazem, avapro, and EDW for hypertension
Wean steroids
Antibiotics for pneumonia will continue
Maintain Cinacalcet for secondary hyperparathyroidism
Await ANCA levels
-
-
Date of Service: February 18, 2024
CC / HPI / ROS
-
Chief Complaint:
ESRD
History of Present Illness:
Tolerated dialysis yesterday
BP stable
Remains on antibiotics for pneumonia
Review of Systems:
No chest pain or shortness of breath
Labs
-
Labs:
WBC 4.8 10^3/uL (4.8-10.8) 02/18/24 04:20
RBC 2.92 10^6/uL (4.70-6.10) L 02/18/24 04:20
Hgb 8.5 g/dL (13.0-18.0) L 02/18/24 04:20
Hct 26.8 % (39.0-52.0) L 02/18/24 04:20
Plt Count 129 10^3/uL (130-400) L D 02/18/24 04:20
Sodium 136 mmol/L (135-145) 02/18/24 04:20
Potassium 4.9 mmol/L (3.5-5.1) 02/18/24 04:20
Chloride 93 mmol/L (98-107) L 02/18/24 04:20
Carbon Dioxide 29 mmol/L (22-30) 02/18/24 04:20
BUN 56 mg/dl (9-20) H 02/18/24 04:20
Creatinine 6.9 mg/dL (0.7-1.3) H* 02/18/24 04:20
eGFR 8.18 02/18/24 04:20
Glucose 111 mg/dl (70-99) H 02/18/24 04:20
Calcium 9.1 mg/dl (8.4-10.2) 02/18/24 04:20
Albumin 3.9 g/dl (3.5-5.0) 02/18/24 04:20
Physical Exam
-
Vital Signs:
Vital Signs
Temp Pulse Resp BP Pulse Ox
99.1 F 75 30 142/86 92
02/18/24 07:12 02/18/24 08:02 02/18/24 06:48 02/18/24 08:02 02/18/24 07:00
Cardiovascular:: Regular rate and rhythm
Respiratory:: Bilateral: Coarse
Lung Excursion:: Normal
Abdomen:: Nontender and Soft
Bowel Sounds:: Normal
Extremity Edema:: +1: Bilateral:
--- NOTE | 2024-02-18 12:16 | W.PN.HOSP.TC ---
Today's Communication/Plan
-
Continue antibiotics
Wean oxygen as able
Assessment / Plan
Assessment / Plan
Gen-AAOx3, NAD
HEENT-NC, AT, anicteric, clear oral mm
Neck-supple
CV-reg, no M, +S1/S2
Lungs-mild bilateral rhonchi
Abd-soft, NT, ND
Ext-no edema
Musculoskeletal-no cyanosis, clubbing
Skin-warm and dry
Neuro-grossly non-focal
Psych-calm, cooperative
Acute TME -present on admission and likely due to sepsis, pneumonia. Mental status improved today compared to yesterday. Appears back to baseline.
Acute hypoxic respiratory failure -due to sepsis, pneumonia. Present on admission. Still on 4 L nasal cannula, wean down as able.
Sepsis -due to multilobar community-acquired pneumonia. Clinically improving. COVID and influenza negative. Blood cultures negative so far. Continue antibiotics. Urinary antigens negative.
CT chest shows multiple scattered clustered nodules/opacities within both lungs.
Acappella, incentive spirometry. ID consulted.
He has never had the pneumonia vaccine, recommend outpatient follow-up with PCP to administer.
History of pituitary adenoma resection -October of this year. Done at [facility]. Denies hypothyroidism and is not on thyroid replacement. TSH 1.73. History of adrenal sufficiency prior to diagnosis of pituitary adenoma. Is on
prednisone 5 mg daily at home. Currently on stress dose steroids.
Reduce hydrocortisone dose to 25 mg IV every 8 hours.
Paroxysmal atrial fibrillation -on flecainide. Not on anticoagulation for unclear reasons. I sent a [place] text to Dr. Tobin Watson of cardiology to discuss.
Essential hypertension -stable.
Hyperlipidemia -on Crestor.
History of multiple myeloma
ESRD on dialysis -Thursday/Thursday/Thursday. Nephrology consulted.
Chronic normocytic anemia -due to ESRD. Hemoglobin 8.7 today, monitor for now.
Chronic thrombocytopenia -unclear etiology. Monitor for now.
Full code
PT consult -Home health recommended.
Anticipated Discharge: Within 24 hours
Subjective/Interval History
-
Date of Service: February 18, 2024
Patient seen and examined. No complaints.
Objective Data
-
Labs:
Laboratory Results
02/18/24
04:20
WBC 4.8
Hgb 8.5 L
Hct 26.8 L
Plt Count 129 L D
Sodium 136
Potassium 4.9
Chloride 93 L
Carbon Dioxide 29
BUN 56 H
Creatinine 6.9 H*
Glucose 111 H
Calcium 9.1
Total Bilirubin 0.4
AST 90 H
ALT 114 H
Alkaline Phosphatase 87
Vital Signs:
Vital Signs
Temp Pulse Resp BP Pulse Ox
99.3 F 75 30 142/86 92
02/18/24 11:12 02/18/24 08:02 02/18/24 06:48 02/18/24 08:02 02/18/24 07:00
I&O
02/17/24 02/18/24 02/19/24
06:59 06:59 06:59
Intake Total 770 / 770 240 / 240
Output Total 250 / 250
Balance 770 / 770 -10 / -10
Review of Systems
-
History Source: Patient
All other systems: Reviewed and negative
[2024-02-18] MEDS: SOLU-CORTEF 25 MG IV ×2 (17:46→23:43)
[2024-02-18] MEDS: STERILE WATER FOR INJECTION 20 ML IV (17:47)
[2024-02-18] MEDS: ROCEPHIN 2000 MG IV (17:47)
[2024-02-18] MEDS: AVAPRO 150 MG PO (21:08)
[2024-02-18] MEDS: PROCARDIA XL (EXTENDED RELEASE) 30 MG PO (21:08)
[2024-02-18] MEDS: CRESTOR 20 MG PO (21:08)
[2024-02-18] MEDS: SENSIPAR 30 MG PO (21:08)
[2024-02-18] MEDS: ROBITUSSIN 200 MG PO (23:43)
[2024-02-19] VITALS (35 sets, daily range): BP systolic 112–160; BP diastolic 68–109
[2024-02-19 04:37] LABS: Hematocrit 23.7 % (39.0-52.0); Hemoglobin 7.7 g/dL (13.0-18.0); Mean Corp Hgb Conc. 32.5 g/dL (33.0-37.0); Mean Corpuscular Hgb 29.6 pg (27.0-31.0); Mean Corpuscular Volume 91.2 fL (80.0-94.0); Mean Platelet Volume 9.4 fL (7.4-10.4); Platelet Count 130 10^3/uL (130-400); Red Cell Dist. Width 14.6 % (11.5-14.5); White Blood Cell Count 4.4 10^3/uL (4.8-10.8)
[2024-02-19 05:10] LABS: Carbon Dioxide 26 mmol/L (22-30); Chloride 92 mmol/L (98-107); Potassium 4.8 mmol/L (3.5-5.1); Sodium 135 mmol/L (135-145)
--- NOTE | 2024-02-19 06:03 | PTCARENOTE ---
No acute events overnight. Anxious at times. Remains on 2 liters NC. New sputum sample obtained and sent to lab.
[2024-02-19] MEDS: ROBITUSSIN 200 MG PO ×3 (08:37→21:01)
[2024-02-19] MEDS: SOLU-CORTEF 25 MG IV ×3 (08:37→23:06)
[2024-02-19] MEDS: ZOVIRAX 200 MG PO ×2 (08:38→21:00)
[2024-02-19] MEDS: PHOSLO 1334 MG PO ×2 (08:38→16:53)
[2024-02-19] MEDS: TAMBOCOR 50 MG PO ×2 (08:38→21:00)
[2024-02-19] MEDS: CARDIZEM CD 240 MG PO (08:38)
[2024-02-19] MEDS: AFRIN NASAL SPRAY NASAL (08:39)
[2024-02-19] MEDS: VIBRAMYCIN 100 MG PO ×2 (08:39→21:00)
[2024-02-19] MEDS: HEPARIN 5000 UNITS SC ×3 (08:39→23:06)
--- NOTE | 2024-02-19 09:00 | W.PN.HOSP.TC ---
Today's Communication/Plan
-
Pulmonary consult
Assessment / Plan
Assessment / Plan
Gen-AAOx3, NAD
HEENT-NC, AT, anicteric, clear oral mm
Neck-supple
CV-reg, no M, +S1/S2
Lungs-mild bilateral rhonchi
Abd-soft, NT, ND
Ext-no edema
Musculoskeletal-no cyanosis, clubbing
Skin-warm and dry
Neuro-grossly non-focal
Psych-calm, cooperative
Acute TME -present on admission and likely due to sepsis, pneumonia. Mental status improved today compared to yesterday. Appears back to baseline.
Acute hypoxic respiratory failure -due to sepsis, pneumonia. Present on admission. Oxygenation improving, 2 L nasal cannula currently. Did desaturate to 85% on room air with physical therapy yesterday. Will need home oxygen assessment prior to
discharge.
Given history of vasculitis and mild hemoptysis will consult pulmonary to evaluate for any other underlying explanation for respiratory failure and bilateral infiltrates.
Sepsis -due to multilobar community-acquired pneumonia. Clinically improving. COVID and influenza negative. Blood cultures negative so far. Continue antibiotics. Urinary antigens negative. Day [address] chest shows multiple scattered clustered nodules/opacities within both lungs.
Acappella, incentive spirometry. ID following.
He has never had the pneumonia vaccine, recommend outpatient follow-up with PCP to administer.
History of pituitary adenoma resection -October of this year. Done at [facility]. Denies hypothyroidism and is not on thyroid replacement. TSH 1.73. History of adrenal sufficiency prior to diagnosis of pituitary adenoma. Is on
prednisone 5 mg daily at home. Currently on stress dose steroids.
Reduced hydrocortisone dose to 25 mg IV every 8 hours.
Paroxysmal atrial fibrillation -on flecainide. Not on anticoagulation for unclear reasons. 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
Essential hypertension -stable.
Hyperlipidemia -on Crestor.
History of multiple myeloma
ESRD on dialysis -Thursday/Thursday/Thursday. Nephrology consulted.
Chronic normocytic anemia -due to ESRD. Hemoglobin down to 7.7 this morning.
Chronic thrombocytopenia -unclear etiology. Monitor for now.
Full code
PT consult -Home health recommended.
Anticipated Discharge: 24 - 48 hours
Subjective/Interval History
-
Date of Service: February 19, 2024
Patient seen and examined. No complaints other than cough.
Objective Data
-
Labs:
Laboratory Results
02/19/24
04:16
WBC 4.4 L
Hgb 7.7 L
Hct 23.7 L
Plt Count 130
Sodium 135
Potassium 4.8
Chloride 92 L
Carbon Dioxide 26
Vital Signs:
Vital Signs
Temp Pulse Resp BP Pulse Ox
97.9 F 63 26 144/82 93
02/19/24 05:49 02/19/24 08:38 02/19/24 06:00 02/19/24 08:38 02/19/24 08:00
I&O
02/18/24 02/19/24 02/20/24
06:59 06:59 06:59
Intake Total 240 / 240
Output Total 250 / 250 50 / 50
Balance -10 / -10 -50 / -50
Review of Systems
-
History Source: Patient
All other systems: Reviewed and negative
--- NOTE | 2024-02-19 10:09 | W.PN.ID1 ---
Date of Service
Date of Service: February 19, 2024
Today's Communication
- dose of cefdinir post HD today which will be final dose to complete a 7 day course (cefdinir is dosed post hd)
- continue doxycycline through thursday also a 7 day course
stable for dc post HD from ID perspective
Assessment / Plan
Community Acquired Pneumonia
Fever - resolved
ESRD on HD
KAMRAN - vasculitis; on low dose steroids at home
Adrenal Insufficiency on stress dose steroids
- sputum gram stain - no suspected pathogen
- blood cultures x2 in progress - no growth to date
- dose of cefdinir post HD today which will be final dose to complete a 7 day course (cefdinir is dosed post hd)
- continue doxycycline through thursday also a 7 day course
stable for dc post HD from ID perspective
Chief Complaint
-: Pneumonia
Subjective / Review of Systems
fever resolved
bp stable
down to 2L
no complaints
Vital Signs / Physical Exam
Vital Signs
Vital Signs
Temp Pulse Resp BP Pulse Ox
97.9 F 63 26 144/82 93
02/19/24 05:49 02/19/24 08:38 02/19/24 06:00 02/19/24 08:38 02/19/24 08:00
Physical Exam
Constitutional: No Acute Distress
Cardiovascular: Regular Rate and S1/S2; Negative Murmur or Rub
Pulmonary: Clear, Symmetric and Non Labored; Negative Wheezes or Rales
Gastrointestinal: Soft, Non Tender, Non Distended and Normal Bowel Sounds
Skin: Warm and Dry; Negative Rash or Jaundice
Objective Data
Lab Data
Lab Results
02/19/24 04:16
02/19/24 04:16
Estimated Creat Clear 11 ml/min 02/18/24 04:20
Total Bilirubin 0.4 mg/dl (0.2-1.3) 02/18/24 04:20
AST 90 U/L (17-59) H 02/18/24 04:20
ALT 114 U/L (0-50) H 02/18/24 04:20
Alkaline Phosphatase 87 U/L (38-126) 02/18/24 04:20
Most recent labs reviewed.
02/18 sputum gram stain: few wbcs, few mixed bacterial morphotypes
Micro Results:
02/19/24 04:17 Respiratory Culture - Pending
Sputum Gram Stain - Preliminary
02/16/24 06:24 Blood Culture - Preliminary
Blood/Venous No Growth in 72 hours- Final report to follow
02/16/24 05:46 Blood Culture - Preliminary
Blood/Venous No Growth in 72 hours- Final report to follow
02/17/24 10:44 Respiratory Culture - Final
Sputum Gram Stain - Final
02/16/24 05:25 MRSA Screen - Final
Nose No Methicillin Resistant Staphylococcus aureus isolated.
02/16/24 13:47 Legionella Urinary Antigen - Final
Urine Negative for Legionella pneumophila Serogroup 1 antigen.
A negative result does not rule out the possiblity of
Legionella infection due to other serogroups or species of
Legionella. Clinical correlation is recommended.
Streptococcus pneumoniae Antigen (M - Final
Negative for Streptococcus pneumoniae antigen.
A negative result does not exclude infection with
Streptococcus pneumoniae. Clinical correlation is
recommended.
02/15/24 17:54 Influenza Types A & B (MEJIA) - Final
Nasal Swab Negative for Influenza A & B, NAAT
Negative results must be combined with clinical observations
and patient history.
Nucleic Acid Amplification test (NAAT)performed on the
[employer] platform.
--- NOTE | 2024-02-19 10:19 | CON.PUL ---
Consultation
Consultation Request
Date/Time Consultation Requested: 02/19/24
Date/Time Consultation Performed: 02/19/24
Performing Provider: Wan
Reason for Consultation: PNA
Medical History
-
History of Present Illness:
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 Adm 02/16/24 for presumed
PNA though CXR was clear on admission with no hypoxemia (96% on RA). COVID test was negative. Influenza test was negative. Patient has negative urinalysis.
CT chest shows multiple scattered clustered nodules/opacities within both lungs. Placed on IV abx for CAP. Was noted to have desaturated to 85% on room air with physical therapy.
No known history of lung disease in past, never on O2 at home. SOB is improving, more fatigue ongoing now.
Past Medical History
Past Medical History: Other (see list below)
Social History
Tobacco: Non-smoker
Alcohol: None
Drug: None
Family History
Family History: Reviewed & Not Pertinent
Allergies / Home Medications
Allergies
Allergy/AdvReac Type Severity Reaction Status Date / Time
levofloxacin [From Levaquin] AdvReac Nausea / Verified 02/17/24 09:16
Vomiting
Home Medications
�Medication �Instructions �Recorded �Confirmed �Last Taken �Type
cinacalcet 30 mg tablet 30 mg PO HS Kidney Disease 09/20/19 02/16/24 10/25/23 History
acyclovir 200 mg capsule 200 mg PO BID Infection prevention 12/06/19 02/16/24 10/26/23 History
acetaminophen 325 mg tablet 650 mg (2 x 325 mg) PO Q4HPRN PRN 06/23/21 02/16/24 Unknown Rx
mild pain/FANG/temp> 100.4F
prednisone 5 mg tablet 5 mg PO DAILY Anti-Inflammatory 10/26/23 02/16/24 10/26/23 History
rosuvastatin 20 mg tablet 20 mg PO HS High Cholesterol 10/26/23 02/16/24 10/25/23 History
calcium acetate 667 mg tablet 1,334 mg PO AC Kidney Disease 02/16/24 02/16/24 Unknown History
diltiazem HCl 240 mg 240 mg PO DAILY Blood Pressure 02/16/24 02/16/24 Unknown History
capsule,extended release 24 hr
nifedipine 30 mg tablet,extended 30 mg PO QPM Blood Pressure 02/16/24 02/16/24 Unknown History
release 24 hr
flecainide 50 mg tablet 50 mg PO Q12H Arrhythmia 02/18/24 02/18/24 Unknown History
Review of Systems
-
History Source: Patient
All other systems: Negative unless noted
Vitals / Labs / Diagnostic Testing
Vital Signs
Temp Pulse Resp BP Pulse Ox
97.9 F 63 26 144/82 93
02/19/24 05:49 02/19/24 08:38 02/19/24 06:00 02/19/24 08:38 02/19/24 08:00
Lab Data
02/19/24 04:16
02/19/24 04:16
Microbiology
02/19/24 04:17 Sputum Gram Stain - Preliminary
02/16/24 06:24 Blood/Venous Blood Culture - Preliminary
No Growth in 72 hours- Final report to follow
02/16/24 05:46 Blood/Venous Blood Culture - Preliminary
No Growth in 72 hours- Final report to follow
02/17/24 10:44 Sputum Respiratory Culture - Final
02/17/24 10:44 Sputum Gram Stain - Final
02/16/24 05:25 Nose MRSA Screen - Final
No Methicillin Resistant Staphylococcus aureus isolated.
02/16/24 13:47 Urine Legionella Urinary Antigen - Final
Negative for Legionella pneumophila Serogroup 1 antigen.
A negative result does not rule out the possiblity of
Legionella infection due to other serogroups or species of
Legionella. Clinical correlation is recommended.
02/16/24 13:47 Urine Streptococcus pneumoniae Antigen (M - Final
Negative for Streptococcus pneumoniae antigen.
A negative result does not exclude infection with
Streptococcus pneumoniae. Clinical correlation is
recommended.
Diagnostic Testing:
Physical Exam
-
HEENT: Normocephalic, Anicteric and Moist Mucous Membranes
Cardiovascular: S1/S2 and Regular Rhythm
Respiratory: Rhonchi and Non-Labored Respirations
GI: Soft, Non Distended and Non Tender
Neurology: Awake, Alert, Oriented and No Motor Deficits
Skin: Warm, Dry and Good Color
General: Comfortable and Other (NAD)
Assessment
-
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 Adm 02/16/24 for presumed
PNA though CXR was clear on admission with no hypoxemia (96% on RA). CT chest shows multiple scattered clustered nodules/opacities within both lungs. Placed on IV abx for CAP. Was noted to have desaturated to 85% on room air with exertion. We
are consulted for eval.
CAP
Abnormal CT
Exertional hypoxemia
Fever, procal 3.01
Leukopenia, mild
Acute on chronic anemia
Acute volume overload, proBNP >82297
Conditions present prior to admission
SAMIRA/ESRD on HD MWF
s/p right av fistula - RUE fistulagram 05/2020
s/p 2 Embolization of renal artery 05/2021
Chronic HFpEF
Atypical atrial flutter/AFib history
Chronic anticoagulation
Multiple myeloma
Bundle branch block, right
HTN
HLD
Pituitary adenoma s/p resection (at [facility]) 11/05/23
H/o MVR 1999
Plan
No oxygen was needed on admission, currently saturating >90% on RA
Noted to have some desaturation with exertion, would monitor
Home O2 evaluation eventually
Prior history of lung disease is NOT noted
No known history of lung disease in past, never on O2 at home
PFT in past (2016) normal
Suspect patient has CAP given fever/procal
CXR negative but CT obtained indicating multifocal opacities
Other past imaging reviewed, prior CXR showing LLL PNA
Started on IV abx, sputum cultures pending
ID following
We discussed possibility of diagnostic bronch is needed, but he would rather wait and complete empiric treatment
This would be reasonable given improvement already, afebrile >24 hours
Can repeat imaging as OP
Prior ECHO results are reviewed indicating preserved function
proBNP >09823, cannot rule out superimposed volume overload
Renal following for HD
Volume removal per team
Follow daily weights
PT/OT, ongoing
was concerned about his level of function
Could benefit from SNF
We will follow
Diagnostic Data
Chest X-Ray: 02/15/24- Lungs: Left hemidiaphragm elevation. Left posterior basilar probable atelectasis/scarring. No convincing acute focal infiltrates. No significant pleural effusions. No visualized pneumothorax. No convincing acute cardiopulmonary
process.
CT Scan: CHEST 02/16/24- 1. Multiple scattered clustered nodules/opacities within both lungs compatible with an infectious or inflammatory process. Most prominent cluster of nodules seen within the lateral right upper lobe with
opacity/conglomeration of nodules measuring up to 20 mm. No pleural effusions. 2. Cardiomegaly.
Echo: 11/14/21- Normal left ventricular size. Normal left ventricular systolic function. Estimate ejection fraction of 50 to 55% visually. Mild concentric left ventricular hypertrophy. Diastolic function indeterminate. S/P mitral valve repair with
mean pressure gradient of 2 mmHg. Mild mitral regurgitation. Indexed LA volume is severely abnormal (> 48 mL/m2). Trileaflet aortic valve with normal leaflet excursion. Mild aortic regurgitation. Since MATT September 2019, there is no significant change.
PFT's: 01/15/16- FEV1 3.16L 89%, FVC 4.07L 88%, ratio 78. TLC 6.55L 95%, DLCO 74% (normal)
Reports and relevant images were personally reviewed.
Total time spent on this consultation __75__ minutes which includes review of history, physical exam, medications, laboratory data, personal review of imaging, extensive review of outpatient records, discussion with care team and respiratory therapy.
--- NOTE | 2024-02-19 11:00 | PTCARENOTE ---
Addendum entered by Girish Kemp RN 02/19/24 17:09:
Patient HR now afib RVR 100-120s. MD notified. EKG done, labs ordered. Patient asymptomatic. HD completed. Getting blood transfusion now. RA, 94%. Will continue to closely monitor.
Original Note:
Patient AAOx3. Able to walk from bed to bathroom multiple times with walker and 1 assist on RA, sats maintained >93%. Up in chair. HD scheduled for noon. Still with blood tinged sputum and occasional cough fits. No other complaints. VSS. at
bedside. Will closely monitor.
--- NOTE | 2024-02-19 13:04 | W.PN.NEPH.HD ---
Assessment
-
Patient seen on dialysis
Systolic blood pressure 156 at current UF
Patient will receive 1 unit of blood on dialysis for hemoglobin of 7.7
Progress Note - Hemodialysis
-
Date of Service: February 19, 2024
Duration: 30 minutes and 3 hours
Potassium Bath: 2
Calcium Bath: 2.5
Opti-Dialyzer: 160
Ultrafiltration: Other (2.5 kg as 1 unit of blood to be transfused)
Blood Flow: 400
Dialysate Flow: 600
Heparin: None
EPO: 10,000
[2024-02-19 13:05] LABS: NT-proBNP > 27000 pg/ml
[2024-02-19] MEDS: VENTOLIN NEBULES 2.5 MG INH ×2 (13:29→18:28)
[2024-02-19] MEDS: RETACRIT 10000 UNITS IV (13:30)
[2024-02-19] MEDS: PHOSLO PO (13:31)
--- NOTE | 2024-02-19 16:49 | CM ---
Patient with Hx ESRD on HD. Room air. Receiving IV Steroids. PT recommends HH.
Spoke with patient who agrees to a referral to [facility] for HH PT. Patient says they will have to work around his dialysis schedule on Wednesday 02/21 and relays that he also has his Empliciti infusion scheduled on 02/22- informed him should be
no problem for VN to see him.
Spoke with [facility] (fax [phone]); referral placed for possible d/c 1-2 days.
Plan home with [facility].
[2024-02-19] MEDS: OMNICEF 300 MG PO (17:01)
[2024-02-19 20:20] LABS: ALT (SGPT) 132 U/L (0-50); AST (SGOT) 81 U/L (17-59); Albumin 3.6 g/dl (3.5-5.0); Alkaline Phosphatase 81 U/L (38-126); Blood Urea Nitrogen 42 mg/dl (9-20); Calcium 9.2 mg/dl (8.4-10.2); Carbon Dioxide 31 mmol/L (22-30); Chloride 93 mmol/L (98-107); Estimated Creatinine Clearance 15 ml/min; Glucose 130 mg/dl (70-99); Magnesium 2.1 mg/dl (1.6-2.3); Potassium 3.8 mmol/L (3.5-5.1); Sodium 136 mmol/L (135-145); Total Bilirubin 0.5 mg/dl (0.2-1.3); Total Protein 5.6 g/dl (6.3-8.2); eGFR 12.03
[2024-02-19] MEDS: SENSIPAR 30 MG PO (21:00)
[2024-02-19] MEDS: CRESTOR 20 MG PO (21:01)
[2024-02-19] MEDS: PROCARDIA XL (EXTENDED RELEASE) 30 MG PO (21:01)
[2024-02-19] MEDS: AVAPRO 150 MG PO (21:01)
[2024-02-19] MEDS: DEBROX EAR DROPS 1 DROP OTIC (21:01)
[2024-02-20] VITALS (7 sets, daily range): BP systolic 113–137; BP diastolic 78–118
--- NOTE | 2024-02-20 00:39 | PTCARENOTE ---
assumed care of patient, pt is AAOx3, able to make needs known. VSS. pt on RA 94%. while sleeping, desating to 80s, placed on 2L for sleep. a-fib on the monitor. complaints of IV burning. notified IV team and new IV placed. no c/o pain. care ongoing.
--- NOTE | 2024-02-20 07:18 | CON.CAR ---
Addendum entered and electronically signed by Wilfredo Pizarro DO 02/20/24 09:57:
I saw and examined the patient.
The Phone Representative's note was reviewed and I agree with the note.
Comment:
Briefly, patient is a pleasant 68-year-old male with a past medical history significant for intermittent right bundle branch block, mitral valve repair 1999 and, PVCs, end-stage renal disease secondary to multiple myeloma on hemodialysis, multiple
myeloma, anemia, paroxysmal atrial arrhythmias (AF, AFL, on flecainide, Cardizem), not on oral anticoagulation due to recurrent renal bleeding who presented with an acute pneumonia. Cardiology consulted due to atrial arrhythmia occurring
02/19/2024. In discussion with patient, he reports no chest pain, palpitations, or weakness. Still notes productive cough and requires O2 in the setting of his pneumonia. Patient has a longstanding history of atrial rhythm he is reporting minimal
symptoms associated with them. Patient follows with Dr. Tobin Watson as outpatient. Review of telemetry demonstrates likely atrial flutter with 2 1/3-1 AV block.
A/P as below
Increase Cardizem to 360 mg daily, continue flecainide
Continue treatment for underlying respiratory infection and illness
Remains off anticoagulation due to recurrent renal bleeding. Further discussion in office with primary cloth mender regarding alternatives in the setting of atrial arrhythmia
Monitor on telemetry, repeat electrolytes
Original Note:
Consultation
Consultation Request
Date/Time Consultation Requested: 02/19/24 at 1651
Date/Time Consultation Performed: 02/20/24 at 0719
Requesting Provider: Dr. Mckeon
Performing Provider: Dr. Pizarro
Reason for Consultation: Afib with RVR
Medical History
-
History of Present Illness:
Patient came to [facility] on Thursday with weakness and fever and has been admitted with PNA and cardiology is consulted for Afib with RVR. Patient has a h/o renal bleed in 2021 and paroxysmal Afib. Patient is not chronically anticoagulated due to
recurrent renal bleeding. Patient is also chronically on a regimen of flecainide 50 mg twice daily and Cardizem CD2 140 mg daily. Patient came to ER from home on Thursday with fever and has been treated for pneumonia. Patient was noted to have
rapid atrial arrhythmia starting yesterday afternoon and by review of telemetry now appears to be in 2:1 or 3:1 atrial flutter. He denies any palpitations and reports he usually is not aware of when he is out of rhythm aside from following his
heart rate. No complaints of any chest pain. He says he has been feeling short of breath and remains on 2L NC.
PMH:
Paroxysmal Afib and atypical atrial flutter
chronic flecainide therapy
Not chronically anticoagulated due to recurrent renal bleeding
History of intermittent RBBB
s/p mitral valve repair in 1999 at [facility]
PVCs
End-stage renal disease secondary to MM, on hemodialysis
Multiple myeloma receiving treatment with monoclonal antibodies and Pomalyst
Anemia
Past Medical History
Past Medical History: Other (in HPI)
Past Surgical History: Cardiac (MVR) and Other (renal artery embolization, pituatary adenoma resection)
Social History
Tobacco: Non-Smoker
Alcohol: None
Drug: None
Personal:
Living: With Family
Family History
Family History: CAD and Cancer
Allergies / Home Medications
Allergy/AdvReac Type Severity Reaction Status Date / Time
levofloxacin [From Levaquin] AdvReac Nausea / Verified 02/17/24 09:16
Vomiting
�Medication �Instructions �Recorded �Confirmed �Type
cinacalcet 30 mg tablet 30 mg PO HS Kidney Disease 09/20/19 02/16/24 History
acyclovir 200 mg capsule 200 mg PO BID Infection prevention 12/06/19 02/16/24 History
acetaminophen 325 mg tablet 650 mg (2 x 325 mg) PO Q4HPRN PRN 06/23/21 02/16/24 Rx
mild pain/FANG/temp> 100.4F
prednisone 5 mg tablet 5 mg PO DAILY Anti-Inflammatory 10/26/23 02/16/24 History
rosuvastatin 20 mg tablet 20 mg PO HS High Cholesterol 10/26/23 02/16/24 History
calcium acetate 667 mg tablet 1,334 mg PO AC Kidney Disease 02/16/24 02/16/24 History
diltiazem HCl 240 mg 240 mg PO DAILY Blood Pressure 02/16/24 02/16/24 History
capsule,extended release 24 hr
nifedipine 30 mg tablet,extended 30 mg PO QPM Blood Pressure 02/16/24 02/16/24 History
release 24 hr
flecainide 50 mg tablet 50 mg PO Q12H Arrhythmia 02/18/24 02/18/24 History
Review of Systems
-
History Source: Patient
All other systems: Negative unless noted
Physical Exam
Vital Signs
Temp Pulse Resp BP Pulse Ox
98.3 F 92 22 122/78 95
02/20/24 05:01 02/20/24 06:00 02/20/24 06:00 02/20/24 06:00 02/20/24 06:00
GEN: No distress, awake, alert and oriented x3
HEENT: EOMI, MMM
LUNGS: CTA B/L, no wheezes or rales
CV: Reg, with ectopy, S1/S2, 1/6 syst LSB, no gallop
ABD: soft, BS+, NT, ND
EXT: No clubbing, cyanosis, lesions or edema B/L
NEURO: Gross non-focal
SKIN: Warm, dry and pink. No rash
Lab Results
02/19/24 19:42
Bol-L-Hzdddotgcte Pept > 77780 pg/ml 02/19/24 04:16
Impression / Plan
-
PCP: Dr. Escobar
Primary Building Mover: Dr. Baird
EP: Dr. Tobin Watson
Impression:
Admitted with PNA 02/15/24
Atypical atrial flutter with RVR
Paroxysmal Afib and atypical atrial flutter
chronic flecainide therapy
Not chronically anticoagulated due to recurrent renal bleeding
History of intermittent RBBB
s/p mitral valve repair in 1999 at [facility]
PVCs
End-stage renal disease secondary to MM, on hemodialysis
Multiple myeloma receiving treatment with monoclonal antibodies and Pomalyst
Anemia
Echo 12/2018: EF 55-60%, mild concentric LVH, mildly enlarged RV, Normal aortic root, status post mitral annular ring insertion, mildly dilated LA and RA, mild to moderate MR, mild TR, PAP 28 mmHg
MATT 09/21/19: EF 60%, mild cLVH, mod dilated LA, no XIOMY thrombus, partial mitral valve ring s/p MV repair functioning well, mean gradient 4mmHg, mild to mod central regurg, mild AR
Echo 11/14/21: EF 50 to 55%, mild concentric LVH, status post mitral valve repair with mean pressure gradient 2 mmHg and mild MR, mild aortic regurgitation
Plan:
-Patient came to [facility] on Thursday with weakness and fever and has been admitted with PNA and cardiology is consulted for Afib with RVR. Patient has a h/o renal bleed in 2021 and paroxysmal Afib. Patient is not chronically anticoagulated due to
recurrent renal bleeding. Patient is also chronically on a regimen of flecainide 50 mg twice daily and Cardizem CD2 140 mg daily. Patient came to ER from home on Thursday with fever and has been treated for pneumonia. Patient was noted to have
rapid atrial arrhythmia starting yesterday afternoon and by review of telemetry now appears to be in 2:1 or 3:1 atrial flutter. He denies any palpitations and reports he usually is not aware of when he is out of rhythm aside from following his
heart rate. No complaints of any chest pain. He says he has been feeling short of breath and remains on 2L NC.
-Tele and ECG reviewed by me, patient appears to be in 2:1 or 3:1 atrial flutter.
-Cont outpatient dose of flecainide 50 mg BID
-Increase outpatient dose of Cardizem CD to 360 mg daily. Patients on flecainide must take an AV emelia blocking agent to prevent 1:1 AV conduction.
-Patient has not on OAC due to recurrent renal bleeding. Patient has not h/o thromboembolic event.
-No need to repeat echo
-pro-BNP greater than [address]672 and nephrology following with plans to increase UF. Volume managed with HD and EF preserved.
[2024-02-20 07:21] LABS: Hemoglobin 8.5 g/dL (13.0-18.0); Mean Corp Hgb Conc. 32.7 g/dL (33.0-37.0); Mean Corpuscular Hgb 29.8 pg (27.0-31.0); Mean Corpuscular Volume 91.2 fL (80.0-94.0); Mean Platelet Volume 9.8 fL (7.4-10.4); Platelet Count 150 10^3/uL (130-400); Red Blood Cell Count 2.85 10^6/uL (4.70-6.10); Red Cell Dist. Width 14.5 % (11.5-14.5); White Blood Cell Count 4.3 10^3/uL (4.8-10.8)
--- NOTE | 2024-02-20 07:47 | W.PN.HOSP.TC ---
Today's Communication/Plan
-
Await cardiology input
Possible discharge
Ambulatory pulse ox on room air
Change back to oral steroids
Assessment / Plan
Assessment / Plan
Gen-AAOx3, NAD
HEENT-NC, AT, anicteric, clear oral mm
Neck-supple
CV-reg, no M, +S1/S2
Lungs-mild bilateral rhonchi
Abd-soft, NT, ND
Ext-no edema
Musculoskeletal-no cyanosis, clubbing
Skin-warm and dry
Neuro-grossly non-focal
Psych-calm, cooperative
Acute TME -present on admission and likely due to sepsis, pneumonia. Appears back to baseline.
Acute hypoxic respiratory failure -due to sepsis, pneumonia. Present on admission. Check ambulatory pulse ox on room air.
Appreciate pulmonary input.
Sepsis -due to multilobar community-acquired pneumonia. Clinically improving. COVID and influenza negative. Blood cultures negative so far. Completed course of ceftriaxone/cefdinir. Tomorrow will be last day of doxycycline per ID.
CT chest shows multiple scattered clustered nodules/opacities within both lungs.
Acappella, incentive spirometry. ID following.
He has never had the pneumonia vaccine, recommend outpatient follow-up with PCP to administer.
History of pituitary adenoma resection -October of this year. Done at [facility]. Denies hypothyroidism and is not on thyroid replacement. TSH 1.73. History of adrenal sufficiency prior to diagnosis of pituitary adenoma. Is on
prednisone 5 mg daily at home.
Discontinue further IV hydrocortisone and resume home dose of steroids.
Paroxysmal atrial fibrillation -on flecainide. Not on anticoagulation for unclear reasons. Defer to his fancy stitcher after discharge.
Patient went into rapid atrial fibrillation yesterday, now improved. On the monitor appears to be in sinus rhythm. Check EKG. Cardiology consulted.
Essential hypertension -stable.
Hyperlipidemia -on Crestor.
History of multiple myeloma
ESRD on dialysis -Thursday/Thursday/Thursday. Nephrology consulted.
Chronic normocytic anemia -due to ESRD. Hemoglobin improved to 8.5 today, transfused 1 unit of blood yesterday.
Chronic thrombocytopenia -unclear etiology. Counts have improved.
Full code
PT consult -Home health recommended.
Dispo -stable from my standpoint for discharge pending cardiology input. Check ambulatory pulse ox on room air.
Anticipated Discharge: Today
Subjective/Interval History
-
Date of Service: February 20, 2024
Patient seen and examined. Overall feeling better. Still with cough. Mild right ear fullness.
Objective Data
-
Labs:
Laboratory Results
02/19/24 02/20/24
19:42 04:58
WBC 4.3 L
Hgb 8.5 L
Hct 26.0 L
Plt Count 150
Sodium 136
Potassium 3.8
Chloride 93 L
Carbon Dioxide 31 H
BUN 42 H
Creatinine 5.0 H*
Glucose 130 H
Calcium 9.2
Total Bilirubin 0.5
AST 81 H
ALT 132 H
Alkaline Phosphatase 81
Vital Signs:
Vital Signs
Temp Pulse Resp BP Pulse Ox
98.3 F 92 22 122/78 95
02/20/24 05:01 02/20/24 06:00 02/20/24 06:00 02/20/24 06:00 02/20/24 06:00
I&O
02/19/24 02/20/24 02/21/24
06:59 06:59 06:59
Intake Total 250 / 250
Output Total 50 / 50 150 / 150
Balance -50 / -50 100 / 100
Review of Systems
-
History Source: Patient
All other systems: Reviewed and negative
[2024-02-20] MEDS: VENTOLIN NEBULES 2.5 MG INH ×3 (07:56→20:39)
[2024-02-20] MEDS: AFRIN NASAL SPRAY 30 SPRAYS NASAL (08:01)
[2024-02-20] MEDS: VIBRAMYCIN 100 MG PO ×2 (08:02→20:42)
[2024-02-20] MEDS: PHOSLO 1334 MG PO ×3 (08:02→16:32)
[2024-02-20] MEDS: CARDIZEM CD 240 MG PO (08:03)
[2024-02-20] MEDS: ZOVIRAX 200 MG PO ×2 (08:03→20:42)
[2024-02-20] MEDS: DELTASONE 5 MG PO (08:03)
[2024-02-20] MEDS: TAMBOCOR 50 MG PO ×2 (08:04→20:42)
[2024-02-20] MEDS: ROBITUSSIN 200 MG PO ×3 (08:04→20:42)
[2024-02-20] MEDS: DEBROX EAR DROPS 1 DROP OTIC ×2 (08:04→20:42)
[2024-02-20] MEDS: HEPARIN 5000 UNITS SC ×3 (08:05→23:15)
[2024-02-20 09:07] LABS: % Basophils 0.2 % (0-2); % Immature Granulocytes 1.4 % (0-0.5); % Lymphocytes 9.5 % (20.5-51.1); % Monocytes 7.6 % (1.7-9.3); % Neutrophils 81.3 % (42.2-75.2); Absolute Immature Granulocytes 0.1 10^3/uL (0-0.05); Absolute Lymphocytes 0.4 10^3/uL (1.2-3.4); Absolute Monocytes 0.3 10^3/uL (0.1-0.6); Absolute Neutrophils 3.5 10^3/uL (1.4-6.5); Nucleated Red Blood Cells % 0.7 % (-)
[2024-02-20] MEDS: CARDIZEM CD 120 MG PO (10:09)
--- NOTE | 2024-02-20 10:32 | CM ---
Chart reviewed. Pt medically clear to d/c today. Awaiting cardiology clearance per hospitalist note
Met pt bedside, discussed d/c plan and recommendations.
IMM reviewed, pt given copy. Copy placed on chart
Marcela WALDRON

Plan: Home w/ Marcela
--- NOTE | 2024-02-20 10:35 | W.PN.NEPH.PH ---
Today's Communication / Plan
-
Stable for discharge from nephrology standpoint
Assessment/Plan
-
Impression:
Fever/dizziness decreased responsiveness
End-stage renal disease on Thursday dialysis cath
Anemia
History of multiple myeloma
History of NUNES
History of right renal hemorrhage
History of hyperphosphatemia
History of secondary hyperparathyroid
Hypertension
Paroxysmal atrial fibrillation
History of pituitary adenoma resection with adrenal insufficiency
Plan:
HD will be Thursday
Hemoglobin with appropriate rise to 8.5 after transfusion yesterday
Patient feeling better after transfusion
Challenge weight
FR and sodium and potassium restriction in diet
RENEE for anemia
Maintain diltiazem, avapro, and EDW for hypertension
Wean steroids
Antibiotics for pneumonia will continue
Maintain Cinacalcet for secondary hyperparathyroidism
Will be discharged on doxycycline for pneumonia
Stable for discharge today
-
-
Date of Service: February 20, 2024
CC / HPI / ROS
-
Chief Complaint:
ESRD
History of Present Illness:
Tolerated dialysis yesterday
BP stable
Remains on antibiotics for pneumonia
Review of Systems:
No chest pain or shortness of breath but still on oxygen
Labs
-
Labs:
WBC 4.3 10^3/uL (4.8-10.8) L 02/20/24 04:58
RBC 2.85 10^6/uL (4.70-6.10) L 02/20/24 04:58
Hgb 8.5 g/dL (13.0-18.0) L 02/20/24 04:58
Hct 26.0 % (39.0-52.0) L 02/20/24 04:58
Plt Count 150 10^3/uL (130-400) 02/20/24 04:58
Sodium 136 mmol/L (135-145) 02/19/24 19:42
Potassium 3.8 mmol/L (3.5-5.1) 02/19/24 19:42
Chloride 93 mmol/L (98-107) L 02/19/24 19:42
Carbon Dioxide 31 mmol/L (22-30) H 02/19/24 19:42
BUN 42 mg/dl (9-20) H 02/19/24 19:42
Creatinine 5.0 mg/dL (0.7-1.3) H* 02/19/24 19:42
eGFR 12.03 02/19/24 19:42
Glucose 130 mg/dl (70-99) H 02/19/24 19:42
Calcium 9.2 mg/dl (8.4-10.2) 02/19/24 19:42
Mgd-B-Ynhkqvbtqek Pept > 97282 pg/ml 02/19/24 04:16
Albumin 3.6 g/dl (3.5-5.0) 02/19/24 19:42
Physical Exam
-
Vital Signs:
Vital Signs
Temp Pulse Resp BP Pulse Ox
98.6 F 88 18 122/78 95
02/20/24 07:40 02/20/24 07:56 02/20/24 07:56 02/20/24 06:00 02/20/24 07:56
Cardiovascular:: Regular rate and rhythm
Respiratory:: Bilateral: Coarse
Lung Excursion:: Normal
Abdomen:: Nontender and Soft
Bowel Sounds:: Normal
Extremity Edema:: +1: Bilateral:
--- NOTE | 2024-02-20 14:15 | W.PN.PUL3 ---
Today's Communication / Plan
-
Wean off oxygen
Antibiotics per infectious disease
Radiographic outpatient follow-up
Transition to oral steroid
Dialysis Thursday
Outpatient pulmonary follow-up in 4 weeks for radiographic follow-up
Agree with discharge planning
No additional recommendations, signed off
Assessment
-
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 Adm 02/16/24 for presumed
PNA though CXR was clear on admission with no hypoxemia (96% on RA). CT chest shows multiple scattered clustered nodules/opacities within both lungs. Placed on IV abx for CAP. Was noted to have desaturated to 85% on room air with exertion. We
are consulted for eval.
CAP
Abnormal CT
Exertional hypoxemia
Fever, procal 3.01
Leukopenia, mild
Acute on chronic anemia
Acute volume overload, proBNP >10083
Conditions present prior to admission
SAMIRA/ESRD on HD MWF
s/p right av fistula - RUE fistulagram 05/2020
s/p 2 Embolization of renal artery 05/2021
Chronic HFpEF
Atypical atrial flutter/AFib history
Chronic anticoagulation
Multiple myeloma
Bundle branch block, right
HTN
HLD
Chronic anemia
Pituitary adenoma s/p resection (at [place]) 11/05/23
On low-dose steroids for chronic adrenal insufficiency
H/o MVR 2000
Plan
Oxygenation improving down to 1 L. Wean off as able. 02/20/2024
Clear lung exam
Check ambulatory pulse ox on room air prior to discharge.
Prior history of lung disease is NOT noted
No known history of lung disease in past, never on O2 at home
PFT in past (2015) normal
Community-acquired pneumonia
Sputum culture with normal respiratory hugo.
CXR negative but CT obtained indicating multifocal opacities
Other past imaging reviewed, prior CXR showing LLL PNA
-
Continue antibiotics per infectious disease.
-
We discussed possibility of diagnostic bronch is needed, but he would rather wait and complete empiric treatment
This would be reasonable given improvement already, afebrile >24 hours
Can repeat imaging as OP, information will be left in the chart.
On a stress dose of steroid-per primary team.
Not hypotensive
Clinically improved
Consider transition back to usual dose in the next 24 hours
Prior ECHO results are reviewed indicating preserved function
proBNP >95970, cannot rule out superimposed volume overload
Renal following for HD
Volume removal per team
Follow daily weights
PT/OT, ongoing
was concerned about his level of function
Could benefit from SNF
We will follow
Diagnostic Data
Chest X-Ray: 02/15/24- Lungs: Left hemidiaphragm elevation. Left posterior basilar probable atelectasis/scarring. No convincing acute focal infiltrates. No significant pleural effusions. No visualized pneumothorax. No convincing acute cardiopulmonary
process.
CT Scan: CHEST 02/16/24- 1. Multiple scattered clustered nodules/opacities within both lungs compatible with an infectious or inflammatory process. Most prominent cluster of nodules seen within the lateral right upper lobe with
opacity/conglomeration of nodules measuring up to 20 mm. No pleural effusions. 2. Cardiomegaly.
Echo: 11/14/21- Normal left ventricular size. Normal left ventricular systolic function. Estimate ejection fraction of 50 to 55% visually. Mild concentric left ventricular hypertrophy. Diastolic function indeterminate. S/P mitral valve repair with
mean pressure gradient of 2 mmHg. Mild mitral regurgitation. Indexed LA volume is severely abnormal (> 48 mL/m2). Trileaflet aortic valve with normal leaflet excursion. Mild aortic regurgitation. Since MATT September 2019, there is no significant change.
PFT's: 01/15/16- FEV1 3.16L 89%, FVC 4.07L 88%, ratio 78. TLC 6.55L 95%, DLCO 74% (normal)
Reports and relevant images were personally reviewed.
Total time spent on this consultation __75__ minutes which includes review of history, physical exam, medications, laboratory data, personal review of imaging, extensive review of outpatient records, discussion with care team and respiratory therapy.
Subjective Data
-
Date of Service:
Date of Service: February 20, 2024
Chief Complaint: Pulmonary Follow Up (Pneumonia)
Subjective:
Overall patient clinically improving
Denies hemoptysis
Denies significant phlegm production
Review of Systems
General: Fever
Cardiopulmonary: Dyspnea (none at rest)
GI: Abdominal Pain (n) and Nausea
Neuro: Headache (n)
Objective Data
Data Reviewed
Vital Signs / I&O / Oxygen:
Vital Signs
Temp Pulse Resp BP Pulse Ox
98.2 F 85 18 122/78 96
02/20/24 12:00 02/20/24 13:59 02/20/24 13:59 02/20/24 06:00 02/20/24 13:59
Intake and Output
02/19/24 02/20/24 02/21/24
06:59 06:59 06:59
Intake Total 250 / 250
Output Total 50 / 50 150 / 150
Balance -50 / -50 100 / 100
SaO2 96
Nasal Cannula flow liters per 1
minute
Physical Exam
General: Comfortable
HEENT: Normocephalic
Cardiovascular: S1-S2
Respiratory: Clear and Non-Labored Respirations
GI: Soft and Non Distended
Neurology: Awake and No Motor Deficits
Skin: Warm
Labs/Micro/Reports
Lab Data
02/20/24 04:58
02/19/24 19:42
Microbiology
02/19/24 04:17 Sputum Respiratory Culture - Preliminary
Usual Respiratory Hugo
02/19/24 04:17 Sputum Gram Stain - Preliminary
02/16/24 06:24 Blood/Venous Blood Culture - Preliminary
No Growth in 4 days- Final report to follow
02/16/24 05:46 Blood/Venous Blood Culture - Preliminary
No Growth in 4 days- Final report to follow
02/17/24 10:44 Sputum Respiratory Culture - Final
02/17/24 10:44 Sputum Gram Stain - Final
[2024-02-20] MEDS: AVAPRO 150 MG PO (20:42)
[2024-02-20] MEDS: CRESTOR 20 MG PO (20:42)
[2024-02-20] MEDS: PROCARDIA XL (EXTENDED RELEASE) 30 MG PO (20:42)
[2024-02-20] MEDS: SENSIPAR 30 MG PO (20:42)
--- NOTE | 2024-02-20 21:58 | PTCARENOTE ---
assumed care of patient. pt is AAOx3- able to make needs known. a-fib on the monitor. 2L 96%, oliguric but urinated 175ml in the urinal without issues. no c/o pain. productive cough, sputum blood tinged. no c/o SOB. care ongoing.
[2024-02-21] VITALS (8 sets, daily range): BP systolic 107–143; BP diastolic 68–105
[2024-02-21 05:48] LABS: % Basophils 0.2 % (0-2); % Immature Granulocytes 2.5 % (0-0.5); % Lymphocytes 14.1 % (20.5-51.1); % Monocytes 9.4 % (1.7-9.3); % Neutrophils 72.8 % (42.2-75.2); Absolute Eosinophils 0.1 10^3/uL (0-0.7); Absolute Immature Granulocytes 0.1 10^3/uL (0-0.05); Absolute Lymphocytes 0.7 10^3/uL (1.2-3.4); Absolute Monocytes 0.5 10^3/uL (0.1-0.6); Absolute Neutrophils 3.8 10^3/uL (1.4-6.5); Hematocrit 25.8 % (39.0-52.0); Hemoglobin 8.4 g/dL (13.0-18.0); Mean Corp Hgb Conc. 32.6 g/dL (33.0-37.0); Mean Corpuscular Hgb 30.2 pg (27.0-31.0); Mean Corpuscular Volume 92.8 fL (80.0-94.0); Mean Platelet Volume 9.7 fL (7.4-10.4); Nucleated Red Blood Cells % 0.8 % (-); Platelet Count 172 10^3/uL (130-400); Red Blood Cell Count 2.78 10^6/uL (4.70-6.10); Red Cell Dist. Width 14.5 % (11.5-14.5); White Blood Cell Count 5.2 10^3/uL (4.8-10.8)
[2024-02-21] MEDS: VENTOLIN NEBULES 2.5 MG INH (07:35)
--- NOTE | 2024-02-21 08:55 | W.PN.NEPH.PH ---
Today's Communication / Plan
-
Dialysis tomorrow
Assessment/Plan
-
Impression:
Fever/dizziness decreased responsiveness
End-stage renal disease on Thursday dialysis cath
Anemia
History of multiple myeloma
History of NUNES
History of right renal hemorrhage
History of hyperphosphatemia
History of secondary hyperparathyroid
Hypertension
Paroxysmal atrial fibrillation
History of pituitary adenoma resection with adrenal insufficiency
Plan:
HD will be Thursday
Hemoglobin with appropriate rise to 8.5 after transfusion yesterday
Patient feeling better after transfusion
Challenge weight
FR and sodium and potassium restriction in diet
RENEE for anemia
Maintain diltiazem, avapro, and EDW for hypertension
Wean steroids
Antibiotics for pneumonia will continue
Maintain Cinacalcet for secondary hyperparathyroidism
Will be discharged on doxycycline for pneumonia
-
-
Date of Service: February 21, 2024
CC / HPI / ROS
-
Chief Complaint:
ESRD
History of Present Illness:
ESRD on Thursday schedule
BP intermittently labile
Remains on antibiotics for pneumonia
Review of Systems:
No chest pain or shortness of breath but still on oxygen
Labs
-
Labs:
WBC 5.2 10^3/uL (4.8-10.8) 02/21/24 05:06
RBC 2.78 10^6/uL (4.70-6.10) L 02/21/24 05:06
Hgb 8.4 g/dL (13.0-18.0) L 02/21/24 05:06
Hct 25.8 % (39.0-52.0) L 02/21/24 05:06
Plt Count 172 10^3/uL (130-400) 02/21/24 05:06
Sodium 136 mmol/L (135-145) 02/19/24 19:42
Potassium 3.8 mmol/L (3.5-5.1) 02/19/24 19:42
Chloride 93 mmol/L (98-107) L 02/19/24 19:42
Carbon Dioxide 31 mmol/L (22-30) H 02/19/24 19:42
BUN 42 mg/dl (9-20) H 02/19/24 19:42
Creatinine 5.0 mg/dL (0.7-1.3) H* 02/19/24 19:42
eGFR 12.03 02/19/24 19:42
Glucose 130 mg/dl (70-99) H 02/19/24 19:42
Calcium 9.2 mg/dl (8.4-10.2) 02/19/24 19:42
Hpd-X-Tztsahsnsnd Pept > 58773 pg/ml 02/19/24 04:16
Albumin 3.6 g/dl (3.5-5.0) 02/19/24 19:42
Physical Exam
-
Vital Signs:
Vital Signs
Temp Pulse Resp BP Pulse Ox
98.0 F 86 18 107/75 99
02/21/24 03:00 02/21/24 07:37 02/21/24 07:37 02/21/24 06:00 02/21/24 07:37
Cardiovascular:: Regular rate and rhythm
Respiratory:: Bilateral: Coarse
Lung Excursion:: Normal
Abdomen:: Nontender and Soft
Bowel Sounds:: Normal
Extremity Edema:: +1: Bilateral:
[2024-02-21] MEDS: PHOSLO 1334 MG PO (08:58)
[2024-02-21] MEDS: CARDIZEM CD 360 MG PO (08:58)
[2024-02-21] MEDS: TAMBOCOR 50 MG PO (09:01)
[2024-02-21] MEDS: DEBROX EAR DROPS 1 DROP OTIC (09:02)
[2024-02-21] MEDS: DELTASONE 5 MG PO (09:02)
[2024-02-21] MEDS: VIBRAMYCIN 100 MG PO (09:02)
[2024-02-21] MEDS: HEPARIN 5000 UNITS SC (09:03)
[2024-02-21] MEDS: ROBITUSSIN 200 MG PO (09:03)
[2024-02-21] MEDS: ZOVIRAX 200 MG PO (09:03)
[2024-02-21] MEDS: AFRIN NASAL SPRAY 30 SPRAYS NASAL (09:04)
--- NOTE | 2024-02-21 10:17 | W.PN.CARDCBS ---
Today's Communication / Plan
-
Tolerating diltiazem 360 daily, flecainide 50 twice daily
Off anticoagulation in the setting of recurrent renal bleeding, further discussion as outpatient
Treatment of underlying respiratory illness and infection, HD by primary service and nephrology
Monitor on telemetry replete electrolytes
Impression / Plan
-
PCP: Dr. Escobar
Primary Architectural Project Captain: Dr. Baird
EP: Dr. Tobin Watson
Impression:
Admitted with PNA 02/15/24
Atypical atrial flutter with RVR
Paroxysmal Afib and atypical atrial flutter
chronic flecainide therapy
Not chronically anticoagulated due to recurrent renal bleeding
History of intermittent RBBB
s/p mitral valve repair in 1999 at [facility]
PVCs
End-stage renal disease secondary to MM, on hemodialysis
Multiple myeloma receiving treatment with monoclonal antibodies and Pomalyst
Anemia
Echo 12/2018: EF 55-60%, mild concentric LVH, mildly enlarged RV, Normal aortic root, status post mitral annular ring insertion, mildly dilated LA and RA, mild to moderate MR, mild TR, PAP 28 mmHg
MATT 09/21/19: EF 60%, mild cLVH, mod dilated LA, no XIOMY thrombus, partial mitral valve ring s/p MV repair functioning well, mean gradient 4mmHg, mild to mod central regurg, mild AR
Echo 11/14/21: EF 50 to 55%, mild concentric LVH, status post mitral valve repair with mean pressure gradient 2 mmHg and mild MR, mild aortic regurgitation
Plan:
-[facility] with [facility] and fever and has been admitted with PNA and cardiology is consulted for Afib with RVR. Patient has a h/o renal bleed in 2021 and paroxysmal Afib. Patient is not chronically anticoagulated due to
recurrent renal bleeding. Patient is also chronically on a regimen of flecainide 50 mg twice daily and Cardizem CD2 140 mg daily. Patient came to ER from home on Thursday with fever and has been treated for pneumonia. Patient was noted to have
rapid atrial arrhythmia starting yesterday afternoon and by review of telemetry now appears to be in 2:1 or 3:1 atrial flutter. He denies any palpitations and reports he usually is not aware of when he is out of rhythm aside from following his
heart rate. No complaints of any chest pain. He says he has been feeling short of breath and remains on 2L NC.
-Tele and ECG reviewed by me, patient appears to be in 2:1 or 3:1 atrial flutter.
-Cont outpatient dose of flecainide 50 mg BID
-Increase outpatient dose of Cardizem CD to 360 mg daily. Patients on flecainide must take an AV emelia blocking agent to prevent 1:1 AV conduction. Rate controlled with increased dose of diltiazem
-Patient has not on OAC due to recurrent renal bleeding. Patient has not h/o thromboembolic event.
-No need to repeat echo
-pro[place] [address] and nephrology following with plans to increase UF. Volume managed with HD and EF preserved.
Progress Note - Architectural Project Captain
Subjective
Date of Service: February 21, 2024
Patient seen and examined's morning. No acute events overnight. Patient resting comfortably in chair. Patient denies any chest pain, palpitations, shortness of breath, weakness. Notes continued productive cough. No fever or chills. Telemetry
demonstrating AF, rate controlled (HR less than 110)
Objective
Labs:
02/21/24 05:06
02/19/24 19:42
Labs
Hgb 8.4 g/dL (13.0-18.0) L 02/21/24 05:06
Hct 25.8 % (39.0-52.0) L 02/21/24 05:06
Plt Count 172 10^3/uL (130-400) 02/21/24 05:06
Sodium 136 mmol/L (135-145) 02/19/24 19:42
Potassium 3.8 mmol/L (3.5-5.1) 02/19/24 19:42
BUN 42 mg/dl (9-20) H 02/19/24 19:42
Creatinine 5.0 mg/dL (0.7-1.3) H* 02/19/24 19:42
Glucose 130 mg/dl (70-99) H 02/19/24 19:42
Vital Signs and I&O:
Vital Signs
Temp Pulse Resp BP Pulse Ox
98.0 F 82 18 122/68 99
02/21/24 08:10 02/21/24 08:58 02/21/24 07:37 02/21/24 08:58 02/21/24 07:37
Vital Signs
Temp Pulse Resp BP Pulse Ox
98.0 F 82 18 122/68 99
02/21/24 08:10 02/21/24 08:58 02/21/24 07:37 02/21/24 08:58 02/21/24 07:37
Intake & Output
02/19/24 02/20/24 02/21/24 02/22/24
06:59 06:59 06:59 06:59
Intake Total 250 / 250
Output Total 50 / 50 150 / 150 175 / 175
Balance -50 / -50 100 / 100 -175 / -175
Physical Exam
Physical Exam
GEN: No distress, awake, alert and oriented x3
HEENT: EOMI, MMM
LUNGS: CTA B/L, no wheezes or rales
CV: Irregularly irregular, S1/S2, 1/6 syst LSB, no gallop
ABD: soft, BS+, NT, ND
EXT: No clubbing, cyanosis, lesions or edema B/L
NEURO: Gross non-focal
SKIN: Warm, dry and pink. No rash
--- NOTE | 2024-02-21 10:39 | W.PN.HOSP.TC ---
Today's Communication/Plan
-
Discharge
1 more dose of doxycycline this evening
Diltiazem 360 mg daily
Assessment / Plan
Assessment / Plan
Acute TME -present on admission and likely due to sepsis, pneumonia. Appears back to baseline.
Acute hypoxic respiratory failure -due to sepsis, pneumonia. Present on admission. Check ambulatory pulse ox on room air. Stable on room air this morning. Will follow-up with pulmonology at discharge
Sepsis -due to multilobar community-acquired pneumonia. Clinically improving. COVID and influenza negative. Blood cultures negative so far. Completed course of ceftriaxone/cefdinir. Tomorrow will be last day of doxycycline per ID. CT chest
shows multiple scattered clustered nodules/opacities within both lungs. Acappella, incentive spirometry. ID following. He has never had the pneumonia vaccine, recommend outpatient follow-up with PCP to administer. Will complete doxycycline course
this evening
History of pituitary adenoma resection -October of this year. Done at [facility]. Denies hypothyroidism and is not on thyroid replacement. TSH 1.73. History of adrenal sufficiency prior to diagnosis of pituitary adenoma. Is on
prednisone 5 mg daily at home. Discontinue further IV hydrocortisone and resume home dose of steroids.
Paroxysmal atrial fibrillation -on flecainide. Not on anticoagulation for history of recurrent bleeding of renal source. Defer to his airplane dispatcher after discharge. Patient went into rapid atrial fibrillation briefly on 02/18, now improved. On the
monitor appears to be in sinus rhythm. Check EKG. Cardiology consulted. Increased diltiazem to 360 mg daily
Essential hypertension -stable.
Hyperlipidemia -on Crestor.
History of multiple myeloma
ESRD on dialysis -Thursday/Thursday/Thursday. Nephrology consulted.
Chronic normocytic anemia -due to ESRD. Hemoglobin improved to 8.5 today, transfused 1 unit of blood yesterday.
Chronic thrombocytopenia -unclear etiology. Counts have improved.
Full code
PT consult -Home health recommended.
Dispo -discharge to home with home care today
Anticipated Discharge: Today
Subjective/Interval History
-
Date of Service: February 21, 2024
Seen and examined at the bedside. No acute events reported overnight. AFVSS this morning on 1 L oxygen with SpO2 99%
I turned off his oxygen while in the room. Patient asking to go home, denies shortness of breath or fevers
Denies any acute complaints today
Objective Data
-
Labs:
Laboratory Results
02/21/24
05:06
WBC 5.2
Hgb 8.4 L
Hct 25.8 L
Plt Count 172
Vital Signs:
Vital Signs
Temp Pulse Resp BP Pulse Ox
98.0 F 82 18 122/68 99
02/21/24 08:10 02/21/24 08:58 02/21/24 07:37 02/21/24 08:58 02/21/24 07:37
I&O
02/20/24 02/21/24 02/22/24
06:59 06:59 06:59
Intake Total 250 / 250
Output Total 150 / 150 175 / 175
Balance 100 / 100 -175 / -175
Review of Systems
-
History Source: Patient
All other systems: Reviewed and negative
Physical Exam
-
General: Well Developed, Well Nourished, No Apparent Distress and Comfortable
HEENT: Normocephalic, Atraumatic, Moist Mucous Membranes and Anicteric
Respiratory: Clear to Auscultation and Non Labored Respirations; Negative Accessory Resp Muscle Use
Cardiac: Regular Rhythm, S1/S2 and Murmur; Negative Rub or Gallop
GI: Soft, Nontender, Nondistended and Normal Bowel Sounds
Musculoskeletal: No Clubbing, No Cyanosis and No Edema
Skin: Warm, Dry and Normal Turgor; Negative Rash
Neuro: AO x 3 and Nonfocal/Grossly Intact
Psych: Calm
Data Reviewed
-
Labs: Labs Reviewed by me and Discussed with Patient
--- NOTE | 2024-02-21 13:29 | W.DCSUMMARY ---
Discharge Summary
Discharge Data
Date of Admission: 02/16/24
Date of Discharge: 02/21/24
-
Pending Results: No
Hospital Course
68-year-old male with paroxysmal AF not on AC, ESRD on HD M/W/F, multiple myeloma, GERD, HTN, adrenal insufficiency on prednisone, AOCD, s/p MVR, s/p pituitary resection that presented to the hospital with acute hypoxemic respiratory failure
secondary to sepsis from community-acquired pneumonia. Was started on IV antibiotics with doxycycline and ceftriaxone, supplemental oxygen was weaned to room air, patient clinically improved. Was transition to doxycycline and cefdinir
subsequently, completed course of antibiotics while in the hospital. Was evaluated by pulmonology and infectious disease team in the hospital. Of note, was briefly on stress dose steroids upon hospitalization however transition back to oral
prednisone regimen at discharge
Discharge Plan
-
Patient Disposition: Home (Routine Discharge)
Discharge Diagnosis/Procedures: Sepsis, pneumonia, respiratory failure, rapid atrial fibrillation
Condition: Good
Diet: Other diet
Additional Diets: 50 ounce fluid restriction, 4 g sodium diet
Activity: With assistance and As tolerated
Driving Restrictions: Not until seen by your Dr
Bathing Restrictions: None
Activity Restrictions/Additional Instructions:
After discharge from the hospital schedule follow-up appointment with family physician, should be seen in office within 7 to 14 days of discharge
Call pulmonology referrals office to schedule appointment, should be seen within 3 to 4 weeks of discharge
Referrals:
Trevor Cool MD [Active] - in three to four weeks
Aguila Escobar DO [Family Provider] - in less than 1 week
Additional Discharge Medication Instructions: Increased diltiazem to 360 mg daily
Continue doxycycline 100 mg, 1 tablet sent to pharmacy which should be taken evening of 02/20 (antibiotics completed after this dose)
Stop taking irbesartan
Prescriptions:
New
diltiazem HCl 180 mg Capsule,Extended Release 24hr
360 mg PO DAILY 30 Days Qty: 60 0RF
doxycycline hyclate 100 mg Capsule
100 mg PO Q12 Qty: 1 0RF
Continued
cinacalcet 30 MG tablet
30 mg PO HS
acyclovir 200 MG capsule
200 mg PO BID
acetaminophen 325 MG tablet
650 mg PO Q4HPRN PRN (Reason: mild pain/FANG/temp> 100.4F) 0RF
prednisone 5 mg Tablet
5 mg PO DAILY
rosuvastatin 20 mg tablet
20 mg PO HS
nifedipine 30 mg Tablet Extended Release 24hr
30 mg PO QPM
calcium acetate 667 mg Tablet
1,334 mg PO AC
flecainide 50 mg Tablet
50 mg PO Q12H
Discontinued
diltiazem HCl 240 mg Capsule,Extended Release 24hr
240 mg PO DAILY
Discharge Orders:
Discharge Patient (As Directed); Ordered 02/21/24
Ordered By: Nicholas Spann
Discharge Date and Time
Discharge Date/Time: 02/21/24 12:36
Print Language: CAMBODIAN
[2024-02-21 14:43] LABS: Myeloperoxidase Antibody 0 AU/mL (0-19); Serine Protease-3, IgG 0 AU/mL (0-19)
== END 2024-02-21 12:36 | disposition home health service (06) | DRG 871 ==
LOC: IMU 03:07
PROVIDERS: Hospitalist; Internal Medicine; Specialist; Student in an Organized Health Care Education/Training Program; ADMITTING PHYSICIAN Internal Medicine; ATTENDING PHYSICIAN Internal Medicine; CONSULT PHYSICIAN Internal Medicine; CONSULT PHYSICIAN Internal Medicine Cardiovascular Disease; CONSULT PHYSICIAN Specialist; CONSULT PHYSICIAN Student in an Organized Health Care Education/Training Program; EMERGENCY PHYSICIAN Emergency Medicine; FAMILY PHYSICIAN Family Medicine
PROC: 5A1D70Z Performance of Urinary Filtration, Intermittent, Less than 6 Hours Per Day (ICD-10-PCS; 2024-02-17)
PROC: 30233N1 Transfusion of Nonautologous Red Blood Cells into Peripheral Vein, Percutaneous Approach (ICD-10-PCS; 2024-02-19)
DX: A41.89 Other specified sepsis (principal); G92.8 Other toxic encephalopathy; J18.9 Pneumonia, unspecified organism; J96.01 Acute respiratory failure with hypoxia; N18.6 End stage renal disease; C90.00 Multiple myeloma not having achieved remission; E27.40 Unspecified adrenocortical insufficiency; I50.32 Chronic diastolic (congestive) heart failure; I13.2 Hypertensive heart and chronic kidney disease with heart failure and with stage 5 chronic kidney disease, or end stage renal disease; N25.81 Secondary hyperparathyroidism of renal origin; I48.4 Atypical atrial flutter; I48.0 Paroxysmal atrial fibrillation; Z99.2 Dependence on renal dialysis; Z85.858 Personal history of malignant neoplasm of other endocrine glands; K21.9 Gastro-esophageal reflux disease without esophagitis; G62.9 Polyneuropathy, unspecified; Z85.828 Personal history of other malignant neoplasm of skin; Z11.52 Encounter for screening for COVID-19; R65.20 Severe sepsis without septic shock; D63.1 Anemia in chronic kidney disease; Z88.1 Allergy status to other antibiotic agents; E78.00 Pure hypercholesterolemia, unspecified; D72.819 Decreased white blood cell count, unspecified; I45.4 Nonspecific intraventricular block; Z95.2 Presence of prosthetic heart valve; I49.3 Ventricular premature depolarization; Z82.49 Family history of ischemic heart disease and other diseases of the circulatory system; Z79.899 Other long term (current) drug therapy; D69.6 Thrombocytopenia, unspecified
CPT/HCPCS: 70450; 71046; 71250; 80048; 80051; 80053; 80202; 81003; 81015; 82533; 83516; 83735; 83880; 84145; 84443; 85025; 85027; 86850; 86900; 86901; 86920; 87040; 87070; 87205; 87449; 87502; 87811; 87899; 93005; 94640; 97163; 97530; 99285; G0257; P9016; P9047; Q5106

== ENCOUNTER → 2024-02-23 11:36 | Outpatient (REF) | payer MEDICARE, OTHER, SELFPAY ==
[2024-02-23 11:36] LABS: % Basophils 0.3 % (0-2); % Eosinophils 1.8 % (0-6); % Immature Granulocytes 3.2 % (0-0.5); % Lymphocytes 9.5 % (20.5-51.1); % Monocytes 8.4 % (1.7-9.3); % Neutrophils 76.8 % (42.2-75.2); Absolute Eosinophils 0.2 10^3/uL (0-0.7); Absolute Immature Granulocytes 0.3 10^3/uL (0-0.05); Absolute Lymphocytes 0.8 10^3/uL (1.2-3.4); Absolute Monocytes 0.7 10^3/uL (0.1-0.6); Absolute Neutrophils 6.7 10^3/uL (1.4-6.5); Hematocrit 29.8 % (39.0-52.0); Hemoglobin 9.4 g/dL (13.0-18.0); Mean Corp Hgb Conc. 31.5 g/dL (33.0-37.0); Mean Corpuscular Hgb 29.9 pg (27.0-31.0); Mean Corpuscular Volume 94.9 fL (80.0-94.0); Mean Platelet Volume 8.6 fL (7.4-10.4); Platelet Count 227 10^3/uL (130-400); Red Blood Cell Count 3.14 10^6/uL (4.70-6.10); Red Cell Dist. Width 14.9 % (11.5-14.5); White Blood Cell Count 8.7 10^3/uL (4.8-10.8)
[2024-02-23 13:06] LABS: ALT (SGPT) 84 U/L (0-50); AST (SGOT) 39 U/L (17-59); Albumin 3.9 g/dl (3.5-5.0); Alkaline Phosphatase 70 U/L (38-126); Blood Urea Nitrogen 52 mg/dl (9-20); Carbon Dioxide 33 mmol/L (22-30); Chloride 94 mmol/L (98-107); Glucose 82 mg/dl (70-99); Potassium 4.2 mmol/L (3.5-5.1); Sodium 139 mmol/L (135-145); Total Bilirubin 0.7 mg/dl (0.2-1.3); Total Protein 6.1 g/dl (6.3-8.2); eGFR 8.47
[2024-02-23 13:32] LABS: LDH 243 U/L (120-246)
== END ==
LOC: OIDL 11:36
PROVIDERS: ATTENDING PHYSICIAN Internal Medicine Hematology & Oncology
DX: C90.00 Multiple myeloma not having achieved remission (principal)
CPT/HCPCS: 80053; 82232; 82784; 83521; 83615; 84155; 84165; 85025; 86334

== ENCOUNTER → 2024-03-15 14:35 | Outpatient (REF) | payer MEDICARE, OTHER, SELFPAY | LOC: HWRAD 14:35 | PROVIDERS: ATTENDING PHYSICIAN Urology; FAMILY PHYSICIAN Family Medicine | DX: N50.89 Other specified disorders of the male genital organs (principal) | CPT/HCPCS: 76870; 93976 ==

== ENCOUNTER 2024-03-24 17:33 | Emergency (ER) | payer MEDICARE, OTHER, SELFPAY ==
[2024-03-24 17:39] VITALS: BP 132/96
[2024-03-24 17:56] VITALS: BMI 28.9
[2024-03-24 17:57] VITALS: BP 141/101
[2024-03-24 18:00] VITALS: BP 132/98
[2024-03-24 18:06] LABS: % Basophils 0.3 % (0-2); % Eosinophils 0.2 % (0-6); % Immature Granulocytes 0.5 % (0-0.5); % Monocytes 6.2 % (1.7-9.3); % Neutrophils 83.8 % (42.2-75.2); Absolute Immature Granulocytes 0.1 10^3/uL (0-0.05); Absolute Lymphocytes 0.9 10^3/uL (1.2-3.4); Absolute Monocytes 0.6 10^3/uL (0.1-0.6); Absolute Neutrophils 8.5 10^3/uL (1.4-6.5); Hematocrit 31.2 % (39.0-52.0); Hemoglobin 10.1 g/dL (13.0-18.0); Mean Corp Hgb Conc. 32.4 g/dL (33.0-37.0); Mean Corpuscular Hgb 30.8 pg (27.0-31.0); Mean Corpuscular Volume 95.1 fL (80.0-94.0); Mean Platelet Volume 9.4 fL (7.4-10.4); Nucleated Red Blood Cells % 0 % (-); Platelet Count 177 10^3/uL (130-400); Red Blood Cell Count 3.28 10^6/uL (4.70-6.10); Red Cell Dist. Width 16.3 % (11.5-14.5); White Blood Cell Count 10.1 10^3/uL (4.8-10.8)
[2024-03-24 18:30] LABS: ALT (SGPT) 52 U/L (0-50); AST (SGOT) 55 U/L (17-59); Albumin 4.6 g/dl (3.5-5.0); Alkaline Phosphatase 74 U/L (38-126); Blood Urea Nitrogen 63 mg/dl (9-20); Calcium 9.5 mg/dl (8.4-10.2); Carbon Dioxide 28 mmol/L (22-30); Chloride 97 mmol/L (98-107); Estimated Creatinine Clearance 10 ml/min; Glucose 92 mg/dl (70-99); Potassium 5.3 mmol/L (3.5-5.1); Sodium 141 mmol/L (135-145); Total Bilirubin 0.4 mg/dl (0.2-1.3); Total Protein 6.3 g/dl (6.3-8.2); eGFR 7.52
[2024-03-24] MEDS: CARDIZEM 125 IV (18:36)
[2024-03-24] MEDS: CARDIZEM 10 MG IV (18:37)
[2024-03-24 18:51] LABS: Magnesium 2.4 mg/dl (1.6-2.3); TSH Reflex To Free T4 1.16 uIU/ml (0.47-4.68)
--- NOTE | 2024-03-24 18:51 | ED.GENMED ---
History of Present Illness
General
Chief Complaint: Heart Rate Problem
Source: patient and spouse
Time Seen by Provider: 03/24/24 18:17
History of Present Illness
History of Present Illness:
68-year-old male with past medical history of paroxysmal atrial fibrillation (not on anticoagulants), hypertension, valvular dysfunction status post mitral valve repair, chronic kidney disease (dialysis Thursday, Thursday, Thursday), multiple myeloma
presenting to the emergency department for evaluation after he had [employer] Visiting Nurse at his house today who noted patient had an elevated heart rate around 130 to 140 bpm and advising patient come to the ER for further evaluation. Patient was
recently hospitalized about a month ago for bilateral pneumonia resulting in a 6-day hospitalization and has had a visiting nurse come to the house once weekly to monitor the patient. Patient reports that he has been feeling significantly better
and feels that he is in his usual state of health presently. Patient states that he does not feel any palpitations, chest pain, shortness of breath and is denying any coughing, hemoptysis, pleurisy or any other concerns presently. Patient notes
that he has been cardioverted twice on an outpatient basis and is not sure as to why he is not on chronic anticoagulation. He does have a follow-up visit scheduled with cardiology already this coming Thursday.
Past History
Past History
ED Past Medical History: Arrthythmia (Atrial fib), Cancer (Skin CA), GERD, HTN, Renal failure (Dialysis M-W-F), Valvular disease, Other (Multiple Myeloma, Neuropathy, Dizziness, Anemia) and Other (ESRD)
ED Past Surgical History: Cardiac (Mitral valve repair), Orthopedic (Right knee surgery) and Other (Right renal hemorrhage with intra-arterial embolectomy May 2021, Pancreatic cyst)
Social History
Tobacco: Non-smoker
Alcohol: Occasional
Drug: None
Personal:
Living: with family
Employment: Employed
Family History
Family History: Other (Noncontributory)
Review of Systems
Review of Systems
All Other Systems: ROS reviewed and negative except as documented in HPI and ROS
Phy Exam
Physical Exam
Physical Exam:
GENERAL: Alert , in no apparent distress
HEAD: NCAT
EYE: clear conjunctiva
NECK: Supple
ENT: o/p clr, mmm.
CARDIAC: Irregularly irregular, tachycardic rate between 118 and 147 bpm
LUNGS: Clear breath sounds bilaterally, no acute respiratory distress
ABDOMEN: Soft, without focal tenderness, no r/g, no cvat
NEUROLOGICAL: Alert and oriented
SKIN: Warm and dry, skin intact.
MUSCULOSKELETAL: Trace bilateral ankle edema, well perfused.
PSYCH: Normal and appropriate interaction.
Scores
[id number] Score for Afib Stroke Risk
Age in Years (65=0, 65-74=1, >/=75=2): 65-74
Sex (Female=+1): Male
Congestive Heart Failure History (Yes=+1): No
Hypertension History (Yes=+1): Yes
Stroke/TIA/Thromboembolism History (Yes=+2): No
Vascular Disease History (Yes=+1): Yes
Diabetes Mellitus (Yes=+1): No
Score: 3
Anticoagulation Recommendations: Recommend anticoagulation (as validated in nonvalvular fib)
Heart Failure Risk
Heart Failure Risk Score: Not Applicable
Heart Score for Chest Pain Patients
STEMI patient?: Not applicable
Withdrawal Assessment of Alcohol
Withdrawal Assessment Completed?: Not applicable
Course
Orders/Labs/Results
Orders:
Orders
03/24/24 17:34
Electrocardiogram (*1) Urgent
Reason for Study: Tachycardia
EKG- Treatment ONCE
03/24/24 17:59
Complete Blood Count/With Diff Urgent
Comprehensive Metabolic Panel Urgent
Magnesium Urgent
Comment: ADDON
TSH Reflex To Free T4 Urgent
03/24/24 18:20
Electrocardiogram (*1) Urgent
Reason for Study: Atrial Fibrillation
EKG- Treatment ONCE
03/24/24 18:32
Diltiazem HCl [Cardizem] 10 mg IV NOW STA
03/24/24 18:34
Add On- LAB Urgent
Tests Added?: magnesium
03/24/24 18:45
Diltiazem 125 mg/125 ml Nss [Cardizem] 125 mg in 125 ml IV PER PROTOCOL
Initial dose in mg/hr, then titrate:: 5
Titrate to keep:: Heart rate 80-100 bpm
Titrate by mg/hr:: 5 mg/hr
Frequency of titrations (minutes):: 15
Maximum dose in mg/hr:: 15
03/24/24 21:09
Diltiazem Extended Release [Cardizem Cd] 180 mg PO NOW STA
Abnormal Lab Results
03/24/24
17:59
RBC 3.28 L 10^6/uL
(4.70-6.10)
Hgb 10.1 L g/dL
(13.0-18.0)
Hct 31.2 L %
(39.0-52.0)
MCV 95.1 H fL
(80.0-94.0)
MCHC 32.4 L g/dL
(33.0-37.0)
RDW 16.3 H %
(11.5-14.5)
Abs Immat Gran (auto) 0.1 H 10^3/uL
(0-0.05)
Absolute Neuts (auto) 8.5 H 10^3/uL
(1.4-6.5)
Absolute Lymphs (auto) 0.9 L 10^3/uL
(1.2-3.4)
Neutrophils % 83.8 H %
(42.2-75.2)
Lymphocytes % 9.0 L %
(20.5-51.1)
Potassium 5.3 H mmol/L
(3.5-5.1)
Chloride 97 L mmol/L
(98-107)
BUN 63 H mg/dl
(9-20)
Creatinine 7.4 H* mg/dL
(0.7-1.3)
Magnesium 2.4 H mg/dl
(1.6-2.3)
ALT 52 H U/L
(0-50)
03/24/24 17:59
03/24/24 17:59
Vital Signs
Initial and Last Documented VS:
Initial Vital Signs
Temp Pulse Resp BP Pulse Ox
98.0 F 146 18 132/96 99
03/24/24 17:39 03/24/24 17:39 03/24/24 17:39 03/24/24 17:39 03/24/24 17:39
Last Documented Vital Signs
Temp Pulse Resp BP Pulse Ox
98.0 F 119 15 153/127 95
03/24/24 17:39 03/24/24 21:22 03/24/24 21:00 03/24/24 21:22 03/24/24 21:00
MDM/Problems Addressed
Differential Diagnosis Includes:
Reoccurring paroxysmal atrial fibrillation, PE considered due to the tachycardia and recent hospitalization however patient without any chest pain, shortness of breath, pleurisy or cough making this diagnosis much less like, electrolyte derangement
MDM/Problems Addressed:
68-year-old male presenting to the emergency department for evaluation of elevated heart rate as noted by his visiting nurse today. Patient received dialysis yesterday without any complications and noted a normal heart rate at that time. Patient
without any fevers or infectious symptoms. Initial EKG done on arrival showed sinus tachycardia however during my exam and on the environmental monitoring specialist patient appeared to be in atrial fibrillation with rapid ventricular rate. Repeat EKG was done and
confirms this diagnosis. Cardizem bolus and drip ordered. Due to patient's complex medical history we discussed potential for admission to be seen by cardiology tomorrow for possible further treatment including MATT and cardioversion depending on
cardiology's consultation. Disposition pending.
Chronic conditions affecting care: Arrhythmia
Acute Exacerbation and/or Progression of Chronic Illness: Arrhythmia
*Pulse Oximetry
Patient hypoxic: no
*EKG
Heart Rate: 122
Rate: tachycardiac
Rhythm: a-fib
*Precision Thread Grinder Operator Interpretation
Rate: tachycardiac
Rhythm: a-fib
*Critical Care Note
Total Time (30-74mins, 75-104mins- exclusive of procedures): 30
comment:
Critical care statement: A total of 30 minutes of critical care time was provided for this patient. This includes management of unstable vital signs, evaluation of the patient at bedside, reviewing the patient's pertinent medical records, discussion
with consultants, review of old EKGs and review of pertinent medical records. This time with separate from time utilized to perform the aforementioned documented procedures
Data Reviewed
Review of Other/Old Records Reveals: Labs, Records and Discharge Summary
Source: patient, records and spouse
Patient Management
Discussion with other providers: Java Web Architect
Escalation/DeEscalation of care consider admission/obs:
Case was discussed with cardiology who states that they would not plan to perform cardioversion and that if patient is rate controlled that he can be discharged home. She will have the office staff follow-up with the patient's pharmacy to verify as
to why they did not fill the patient's prescription at 360 mg of Cardizem. Patient also has an appointment scheduled with cardiology for this coming Thursday. Patient ultimately wishes to be discharged home and does not wish to be admitted. We
observe the patient off of the Cardizem infusion and his heart rate was maintained around 95 bpm but would intermittently go to up as high as about 115 bpm. We gave the patient an additional 180 mg of his long-acting oral Cardizem. Advised the
patient and to check his heart rate throughout the day and if he goes back into a significantly elevated heart rate to come back to the hospital and patient is in agreement with this plan. Stable for discharge home and continued outpatient
follow-up.
ED Attending Note
-
Portions of this chart may have been created with voice recognition software.� Occasional wrong word or��sound alike� substitutions may have occurred due to the inherent limitations of voice recognition software.
Discharge Plan
Departure
Patient Disposition: Home (Routine Discharge)
Date of Disposition: 03/24/24
Time of Disposition: 21:08
Patient with high blood pressure during this ER visit?: Yes
Discharge Problem:
Atrial fibrillation with rapid ventricular response
Instructions: Atrial Fibrillation (DC)
Prescriptions:
No Action
cinacalcet 30 MG tablet
30 mg PO HS
acyclovir 200 MG capsule
200 mg PO BID
acetaminophen 325 MG tablet
650 mg PO Q4HPRN PRN (Reason: mild pain/FANG/temp> 100.4F) 0RF
prednisone 5 mg Tablet
5 mg PO DAILY
rosuvastatin 20 mg tablet
20 mg PO HS
nifedipine 30 mg Tablet Extended Release 24hr
30 mg PO QPM
calcium acetate 667 mg Tablet
1,334 mg PO AC
flecainide 50 mg Tablet
50 mg PO Q12H
diltiazem HCl 180 mg Capsule,Extended Release 24hr
360 mg PO DAILY 30 Days Qty: 60 0RF
doxycycline hyclate 100 mg Capsule
100 mg PO Q12 Qty: 1 0RF
Referrals:
Aguila Escobar, DO [Family Provider] -
Interventions
Interventions:
*Risk Screen - Suicide Last Done: 03/24/24 17:39
*General Assessment Last Done: 03/24/24 17:39
*Neglect/Abuse Screening Last Done: 03/24/24 17:39
ED- Fall Risk Assessment Last Done: 03/24/24 17:54
*ED COVID-19 Vaccine History Last Done: 03/24/24 17:39
*Nursing Disposition Last Done: 03/24/24 21:57
ED- Cardiac Assessment Last Done: 03/24/24 17:54
ED- Pulmonary Assessment Last Done: 03/24/24 17:54
Discharge Date and Time
Discharge Date/Time: 03/24/24 21:58
Print Language: ALGERIAN
[2024-03-24 19:00] VITALS: BP 150/94
[2024-03-24 20:00] VITALS: BP 159/108
[2024-03-24 21:00] VITALS: BP 153/127
[2024-03-24] MEDS: CARDIZEM CD 180 MG PO (21:22)
== END 2024-03-24 21:58 | disposition home or self-care (01) ==
LOC: EMR 17:33
PROVIDERS: EMERGENCY PHYSICIAN Emergency Medicine; FAMILY PHYSICIAN Family Medicine; OTHER PHYSICIAN Internal Medicine Cardiovascular Disease
DX: I48.0 Paroxysmal atrial fibrillation (principal); I12.0 Hypertensive chronic kidney disease with stage 5 chronic kidney disease or end stage renal disease; N18.6 End stage renal disease; Z85.828 Personal history of other malignant neoplasm of skin; Z99.2 Dependence on renal dialysis; K21.9 Gastro-esophageal reflux disease without esophagitis
CPT/HCPCS: 99283; 96374; 96376; 80053; 83735; 84443; 85025; 93005

== ENCOUNTER → 2024-03-29 12:58 | Outpatient (REF) | payer MEDICARE, OTHER, SELFPAY | LOC: RAD 12:58 | PROVIDERS: ATTENDING PHYSICIAN Surgery Vascular Surgery; FAMILY PHYSICIAN Family Medicine | DX: I77.0 Arteriovenous fistula, acquired (principal) | CPT/HCPCS: 93990 ==

== ENCOUNTER → 2024-04-19 11:17 | Outpatient (REF) | payer MEDICARE, OTHER, SELFPAY ==
[2024-04-19 09:10] LABS: % Basophils 0.2 % (0-2); % Eosinophils 2.1 % (0-6); % Lymphocytes 17.2 % (20.5-51.1); % Monocytes 9.9 % (1.7-9.3); % Neutrophils 70.6 % (42.2-75.2); Absolute Eosinophils 0.1 10^3/uL (0-0.7); Absolute Lymphocytes 0.7 10^3/uL (1.2-3.4); Absolute Monocytes 0.4 10^3/uL (0.1-0.6); Hematocrit 37.5 % (39.0-52.0); Hemoglobin 11.8 g/dL (13.0-18.0); Mean Corp Hgb Conc. 31.5 g/dL (33.0-37.0); Mean Corpuscular Volume 95.4 fL (80.0-94.0); Mean Platelet Volume 8.7 fL (7.4-10.4); Platelet Count 133 10^3/uL (130-400); Red Blood Cell Count 3.93 10^6/uL (4.70-6.10); Red Cell Dist. Width 15.4 % (11.5-14.5); White Blood Cell Count 4.3 10^3/uL (4.8-10.8)
[2024-04-19 15:24] LABS: ALT (SGPT) < 10 U/L (0-50); AST (SGOT) 12 U/L (17-59); Albumin 4.1 g/dl (3.5-5.0); Alkaline Phosphatase 58 U/L (38-126); Blood Urea Nitrogen 49 mg/dl (9-20); Calcium 9.1 mg/dl (8.4-10.2); Carbon Dioxide 31 mmol/L (22-30); Chloride 98 mmol/L (98-107); Glucose 96 mg/dl (70-99); LDH 131 U/L (120-246); Potassium 4.6 mmol/L (3.5-5.1); Sodium 138 mmol/L (135-145); Total Bilirubin 0.5 mg/dl (0.2-1.3); Total Protein 5.8 g/dl (6.3-8.2); eGFR 7.17
[2024-04-21 00:15] LABS: IgG 445 mg/dl (700-1600)
== END ==
LOC: OIDL 11:17
PROVIDERS: ATTENDING PHYSICIAN Internal Medicine Hematology & Oncology
DX: C90.00 Multiple myeloma not having achieved remission (principal)
CPT/HCPCS: 80053; 82784; 83615; 85025

== ENCOUNTER → 2024-05-17 10:19 | Outpatient (REF) | payer MEDICARE, OTHER, SELFPAY ==
[2024-05-17 10:29] LABS: % Basophils 0.8 % (0-2); % Eosinophils 2.8 % (0-6); % Immature Granulocytes 0.2 % (0-0.5); % Lymphocytes 13.4 % (20.5-51.1); % Neutrophils 71.8 % (42.2-75.2); Absolute Eosinophils 0.1 10^3/uL (0-0.7); Absolute Lymphocytes 0.7 10^3/uL (1.2-3.4); Absolute Monocytes 0.5 10^3/uL (0.1-0.6); Absolute Neutrophils 3.5 10^3/uL (1.4-6.5); Hemoglobin 10.6 g/dL (13.0-18.0); Mean Corp Hgb Conc. 33.1 g/dL (33.0-37.0); Mean Corpuscular Hgb 29.9 pg (27.0-31.0); Mean Corpuscular Volume 90.1 fL (80.0-94.0); Mean Platelet Volume 9.4 fL (7.4-10.4); Platelet Count 113 10^3/uL (130-400); Red Blood Cell Count 3.55 10^6/uL (4.70-6.10); Red Cell Dist. Width 15.5 % (11.5-14.5); White Blood Cell Count 4.9 10^3/uL (4.8-10.8)
[2024-05-17 11:49] LABS: ALT (SGPT) 21 U/L (0-50); AST (SGOT) 18 U/L (17-59); Albumin 4.6 g/dl (3.5-5.0); Alkaline Phosphatase 63 U/L (38-126); Blood Urea Nitrogen 53 mg/dl (9-20); Calcium 9.6 mg/dl (8.4-10.2); Carbon Dioxide 27 mmol/L (22-30); Chloride 96 mmol/L (98-107); Glucose 77 mg/dl (70-99); Potassium 4.7 mmol/L (3.5-5.1); Sodium 137 mmol/L (135-145); Total Bilirubin 0.7 mg/dl (0.2-1.3); eGFR 7.64
[2024-05-17 12:02] LABS: LDH 167 U/L (120-246)
[2024-05-18 17:36] LABS: Beta-2-Microglobulin 26.4 mg/L (<=3.0)
[2024-05-19 14:34] LABS: Albumin 4.52 g/dL (3.75-5.01); Alpha 1 Globulin 0.37 g/dL (0.19-0.46); Alpha 2 Globulin 0.58 g/dL (0.48-1.05); Free Kappa Light Chains,Quant 39.26 mg/L (3.30-19.40); Free Lambda Light Chains,Quant 46.08 mg/L (5.71-26.30); IgA 22 mg/dL (68-408); IgG 398 mg/dL (768-1632); IgM 24 mg/dL (35-263); Immunofixation Electrophoresis IFE Done; Kappa/Lambda Fr Light Ratio 0.85 (0.26-1.65); Total Protein-Electrophoresis 6.4 g/dL (6.3-8.2)
== END ==
LOC: OIDL 10:19
PROVIDERS: ATTENDING PHYSICIAN Internal Medicine Hematology & Oncology
DX: C90.00 Multiple myeloma not having achieved remission (principal); D63.1 Anemia in chronic kidney disease; R53.83 Other fatigue; C90.02 Multiple myeloma in relapse; R90.0 Intracranial space-occupying lesion found on diagnostic imaging of central nervous system; D80.1 Nonfamilial hypogammaglobulinemia
CPT/HCPCS: 80053; 82232; 82784; 83521; 83615; 84155; 84165; 85025; 86334

== ENCOUNTER 2024-06-07 06:18 | Day surgery (SDC) | payer MEDICARE, OTHER, SELFPAY ==
[2024-06-07] VITALS (11 sets, daily range): BP systolic 139–163; BP diastolic 70–78; BMI 28.1
--- NOTE | 2024-06-07 11:26 | ITS.CL.CATH ---
[facility] - Catheterization
Cardiac Catheterization
Procedure Report:
LEFT HEART CATHETERIZATION
Date of Procedure: June 07, 2024
Referring: Dr. Tobin Watson and Dr. Peggy Baird
PROCEDURES:
1. Coronary angiography
INDICATION: This is a 68-year-old gentleman who is currently undergoing evaluation for kidney transplant at [facility]. As part of this evaluation a stress test was performed that was notable for a large sized severe intensity fixed
perfusion defect in the inferior and inferolateral wall with an estimated ejection fraction of 46% with global hypokinesis. Subsequent echocardiogram was notable for preserved LVEF estimated 55% with mild to moderate mitral regurgitation and mild
aortic insufficiency with moderate aortic stenosis and mean aortic valve gradient of 18 mmHg. He is now referred for coronary angiography
ACCESS: Right common femoral artery, 6 [place] sheath
HEMODYNAMICS : (mmHg)
AO (s/d) : 155/77
CORONARY FINDINGS
DOMINANCE: Right
LEFT MAIN: Normal
LEFT ANTERIOR DESCENDING: The LAD arises normally from the left main and runs in the anterior interventricular groove. The LAD has minor irregularities over its course but no focal obstructive stenosis
CIRCUMFLEX: The circumflex is a large caliber nondominant vessel that supplies a single large bifurcating obtuse marginal branch which is widely patent
RIGHT CORONARY ARTERY: The right coronary artery is a large-caliber dominant vessel that is widely patent over its course
VENTRICULOGRAPHY: Not done
SEDATION: 32 minutes of procedural sedation was utilized. An independent medical nurse was present to assist with and help manage the patient's level of consciousness and physiologic status.
RADIATION SUMMARY: Fluoro Time (min): 4.8, Dose (mGy): 301, DAP (Gy.cm2) : 25.3
Closure Device: 6 [place] Angio-Seal RFA
CONCLUSIONS
1. Nonobstructive coronary disease
Copy to: Dr. Tobin Watson and Dr. Peggy Baird
== END 2024-06-07 14:15 | disposition home or self-care (01) ==
LOC: CATH 06:18
PROVIDERS: ATTENDING PHYSICIAN Internal Medicine Interventional Cardiology; FAMILY PHYSICIAN Family Medicine; OTHER PHYSICIAN Internal Medicine Cardiovascular Disease
DX: I35.2 Nonrheumatic aortic (valve) stenosis with insufficiency (principal); Z01.818 Encounter for other preprocedural examination; I08.0 Rheumatic disorders of both mitral and aortic valves; I25.10 Atherosclerotic heart disease of native coronary artery without angina pectoris; I12.0 Hypertensive chronic kidney disease with stage 5 chronic kidney disease or end stage renal disease; N18.6 End stage renal disease; Z99.2 Dependence on renal dialysis; I48.91 Unspecified atrial fibrillation; Z79.01 Long term (current) use of anticoagulants; Z79.899 Other long term (current) drug therapy; Z79.52 Long term (current) use of systemic steroids
CPT/HCPCS: 99152; 99153; 93454; C1760; C1894; Q9967

== ENCOUNTER 2024-06-30 05:54 | Day surgery (SDC) | payer MEDICARE, OTHER, SELFPAY ==
[2024-06-16 10:22] VITALS: BMI 29.0
[2024-06-30] VITALS (12 sets, daily range): BP systolic 100–139; BP diastolic 64–80; BMI 29.0
[2024-06-30 09:16] LABS: ACT-LR - POC 297 Seconds (116-155)
[2024-06-30 09:32] LABS: ACT-LR - POC 342 Seconds (116-155)
--- NOTE | 2024-06-30 10:09 | ITS.CL.ABL ---
Resident Care Director - Ablation
Ablation
Procedure Report:
ELECTROPHYSIOLOGY ABLATION STUDY
DATE:: June 30, 2024�����������������������������REFERRING: Dr. Peggy Baird
INDICATION: Paroxysmal supraventricular tachycardia in the form of atrial fibrillation.��Also noted to have atypical atrial flutter status post mitral valve repair and maze surgery
HISTORY: See H and P.��As above
ANTIARRHYTHMIC DRUG: Flecainide
PRE-PROCEDURE MATT: No intra-atrial thrombus
PRESENTING RHYTHM: Junctional bradycardia and sinus bradycardia
'TIME-OUT':��called and confirmed.
SEDATION/ANESTHESIA:��provided via the anesthesia department using general anesthesia (LMA).
INTRAVENOUS/ARTERIAL ACCESS:
Right femoral venous - 10 Fr,
Left femoral venous - 8 Fr, 6 Fr
Ultrasound guidance for bilateral femoral vein access was utilized by me to obtain access with demonstration of normal anatomy
CHADS-VASC Score:
HAS-Bled Score
PROCEDURE:
1.��A decapolar CS catheter was placed within the CS for mapping and pacing.��This was also used as the reference catheter for the 3-D map. With atrial extrastimuli the patient was easily inducible for clinical tachycardia with a superiorly
directed P wave cycle length 14 ms and a proximal distal coronary sinus activation. Entrainment demonstrated the lateral CTI and the medial CTI in the circuit with PPI equal to tachycardia cycle length in the distal coronary sinus out of the
circuit. Activation mapping demonstrated counterclockwise activation about the tricuspid valve with the entire cycle length within the right atrium. There was a paucity of scar in the right atrium although at the prior atriotomy there was some
patchy electroanatomic scar. We then brought the lattice catheter to the isthmus and there was slowing and then termination of the atrial flutter with radiofrequency energy at 400 W for 5 seconds for 3 lesions at the tricuspid valve and then PFA
lesions from the mid isthmus back to the IVC under direct echocardiographic visualization. Interest was conduction time of 210 ms bidirectionally was noted.
2. The intracardiac ultrasound catheter was positioned in the RA to identify the FO for targeting of transseptal puncture, assist��in identification of the pulmonary vein ostia, monitoring pre and post ablation pulmonary vein flow velocities,
monitoring for 'bubble' formation during RF application as a sign of thermal injury,��and to monitor for pericardial effusion during mapping and ablation procedure.���Left atrial size, LV ejection fraction, and pulmonary vein flows were monitored
pre and post ablation procedure. The other valves were inspected and found to be free of significant regurgitation or stenosis.
3.��Half of the calculated heparin bolus was administered prior to the first transeptal puncture.��Transseptal puncture was performed to diagnose RA and LA pressure so that safety of LA mapping and ablation could be further assessed, and to access
the left atrium and pulmonary veins for mapping and ablation.��This entailed advancing an 10 [place] steerable sheath with dilator into the superior vena cava and withdrawing both (monitoring intracardiac ultrasound, fluoroscopy and tip pressure)
with the tip oriented toward the atrial septum.��The fossa ovalis was engaged (indicated by sudden displacement of the sheath tip as well as tenting of the fossa seen on intracardiac ultrasound).��Left atrial access required a pass with the
[place] needle extended.��Left atrial catheter position was confirmed by pressure monitoring (RA mean pressure 8 mm Hg and LA mean presure 12 mm Hg), LA saturation (99%),��as well as fluoroscopy.��The sheath was advanced over the dilator and
positioned in the left atrium.��This procedure was repeated for the Agilis sheath.��The remainder of the calculated heparin bolus was administered and heparin was
infused to maintain ACT at 300 -350 seconds throughout the case.
4.��RA pacing was performed via the proximal decapolar poles and LA pacing was performed via the distal decapolr poles.
5. A quadrapolar catheter was first positioned at the His position for His Bundle recording which was tagged via the 3-D Navex sytem, and then passed to the RVA for RV pacing and recording.
6. The Laddis catheter was placed in each of the LIPV, LSPV, RSPV and the RIPV.��
7.��Next, a 3-D map was created using Navex.���A 3-D reconstructed CT image was compared to the 3-D Navex map to assist in anatomic interpretation, mapping and ablation.��The CT image and the NavX image were fused.
8. From the prior MAZE surgery the right inferior pulmonary vein was isolated. The right superior pulmonary vein was connected at the paige. There was patchy scar in the posterior left veins although each vein was connected. We then performed
[place] ablation around the left and right veins with a posterior wall box lesion set I setting all 4 pulmonary veins with entrance and exit block as well as the posterior wall from roof to the floor. The patient was then noninducible for any
other tachyarrhythmia after these lesion sets.
9. Normal sinus node and AV node function noted.
TOTAL FLOURO TIME: 20 minutes 123 mGy
TOTAL RF DURATION: 15 seconds for 3 lesions at the tricuspid annulus
REVERSAL OF HEPARIN: 40 mg of protamine, slow IV administration
COMPLICATIONS:
None
Intracardiac US shows no pericardial effusion post ablation.
SUMMARY:��
Complex left atrial mapping and ablation.
Isolation of all 4 pulmonary veins and left atrial posterior wall as above. Slowing and termination of the patient's clinical tach arrhythmia which was counterclockwise CTI flutter. Baseline cycle length was 410 ms prior to termination.
RECOMMENDATIONS:
1. Ambulate 4 hours
2. Resume anticoagulation
3.� I have no objection to discontinuing flecainide
4.��Consider same-day discharge
Copy to: Dr. Peggy Baird
[2024-06-30] MEDS: SUBLIMAZE 25 MCG IV (10:55)
[2024-06-30] MEDS: ANESTHETIC LOZENGE 1 LOZENGE PO (11:02)
--- NOTE | 2024-06-30 15:39 | W.PN.UPDATE ---
Update Note
Progress Note Update
68 yo WM s/p PVI (same day). He denies cp, sob, jesus diet, EKG SR RBBB, R groin oozing post procedure, F08 suture removed and manual pressure held. It continued to ooze despite manual pressure, I injected lidocaine 1% with epi 10cc into R groin with
good hemostasis. When he got oob his L groin bled, manual pressure held and flat for 30min. He was oob ambulating with no further bleeding in both groins c/d/i no HT< soft. He will resume Eliquis tonight at 9pm and continue diltiazem. Activity
restrictions reviewed. He will f/u Dr. Watson in 3 mo. He is for d/c home after 4pm.
== END 2024-06-30 15:45 | disposition home or self-care (01) ==
LOC: CATH 05:54
PROVIDERS: ATTENDING PHYSICIAN Internal Medicine Cardiovascular Disease; FAMILY PHYSICIAN Family Medicine
DX: I48.0 Paroxysmal atrial fibrillation (principal); I48.4 Atypical atrial flutter; Z79.899 Other long term (current) drug therapy; E27.40 Unspecified adrenocortical insufficiency; E78.5 Hyperlipidemia, unspecified; G25.0 Essential tremor; G47.33 Obstructive sleep apnea (adult) (pediatric); I25.10 Atherosclerotic heart disease of native coronary artery without angina pectoris; I12.0 Hypertensive chronic kidney disease with stage 5 chronic kidney disease or end stage renal disease; I45.10 Unspecified right bundle-branch block; I47.19 Other supraventricular tachycardia; N18.6 End stage renal disease; M85.80 Other specified disorders of bone density and structure, unspecified site; N25.81 Secondary hyperparathyroidism of renal origin; Z85.820 Personal history of malignant melanoma of skin; Z85.828 Personal history of other malignant neoplasm of skin; Z86.0101 Personal history of adenomatous and serrated colon polyps; I44.0 Atrioventricular block, first degree; Z88.1 Allergy status to other antibiotic agents; Z86.018 Personal history of other benign neoplasm; Z99.2 Dependence on renal dialysis; K21.9 Gastro-esophageal reflux disease without esophagitis; I08.0 Rheumatic disorders of both mitral and aortic valves; R91.8 Other nonspecific abnormal finding of lung field; K86.2 Cyst of pancreas; G43.909 Migraine, unspecified, not intractable, without status migrainosus; G62.9 Polyneuropathy, unspecified; M30.0 Polyarteritis nodosa; C90.00 Multiple myeloma not having achieved remission; D63.8 Anemia in other chronic diseases classified elsewhere; Z79.52 Long term (current) use of systemic steroids; Z79.01 Long term (current) use of anticoagulants
CPT/HCPCS: C1730; C1894; C1766; C1892; C1759; C1733; 80048; 85025; 85347; 93005; 93655; 93656; 93657

== ENCOUNTER 2024-06-30 19:53 | Emergency (ER) | payer MEDICARE, OTHER, SELFPAY ==
[2024-06-30] VITALS (8 sets, daily range): BP systolic 151–167; BP diastolic 81–96; BMI 30.8
[2024-06-30 21:18] LABS: % Basophils 0.2 % (0-2); % Eosinophils 0.2 % (0-6); % Immature Granulocytes 0.2 % (0-0.5); % Lymphocytes 5.9 % (20.5-51.1); % Monocytes 6.8 % (1.7-9.3); % Neutrophils 86.7 % (42.2-75.2); Absolute Lymphocytes 0.5 10^3/uL (1.2-3.4); Absolute Monocytes 0.6 10^3/uL (0.1-0.6); Hematocrit 28.6 % (39.0-52.0); Hemoglobin 9.6 g/dL (13.0-18.0); Mean Corp Hgb Conc. 33.6 g/dL (33.0-37.0); Mean Corpuscular Hgb 31.8 pg (27.0-31.0); Mean Corpuscular Volume 94.7 fL (80.0-94.0); Nucleated Red Blood Cells % 0 % (-); Platelet Count 126 10^3/uL (130-400); Red Blood Cell Count 3.02 10^6/uL (4.70-6.10); Red Cell Dist. Width 17.8 % (11.5-14.5); White Blood Cell Count 8.1 10^3/uL (4.8-10.8)
[2024-06-30 21:45] LABS: Blood Urea Nitrogen 42 mg/dl (9-20); Calcium 8.5 mg/dl (8.4-10.2); Carbon Dioxide 32 mmol/L (22-30); Chloride 95 mmol/L (98-107); Estimated Creatinine Clearance 11 ml/min; Glucose 103 mg/dl (70-99); Potassium 5.9 mmol/L (3.5-5.1); Sodium 135 mmol/L (135-145); eGFR 7.64
--- NOTE | 2024-06-30 22:31 | ED.GENMED ---
History of Present Illness
General
Chief Complaint: Post Operative Problem(s)
Source: patient and spouse (Spouse states that after getting home and walking and started bleeding. They tried to hold pressure)
Time Seen by Provider: 06/30/24 20:26
History of Present Illness
History of Present Illness:
68-year-old male who had an ablation today and had bilateral groin puncture. Patient states he got home and he started bleeding from his right groin. The patient earlier did have some oozing and he thought about keeping him overnight. He was
given QuikClot by EMS. Patient states the bleeding seems of improved. No other complaints. Did not take his night dose of Eliquis
Past History
Past History
ED Past Medical History: Arrthythmia (Atrial fib), Cancer (Skin CA), GERD, HTN, Renal failure (Dialysis M-W-F), Valvular disease, Other (Multiple Myeloma, Neuropathy, Dizziness, Anemia) and Other (ESRD)
ED Past Surgical History: Cardiac (Mitral valve repair), Orthopedic (Right knee surgery) and Other (Right renal hemorrhage with intra-arterial embolectomy May 2021, Pancreatic cyst)
Social History
Tobacco: Non-smoker
Alcohol: Occasional
Drug: None
Personal:
Living: with family
Employment: Employed
Family History
Family History: Other (Noncontributory)
Phy Exam
Physical Exam
Physical Exam:
CONSTITUTIONAL Vital signs reviewed, Patient alert and oriented to person, place and time. Well-appearing
HEAD atraumatic, normocephalic.
EYES eyelids normal to inspection, Extraocular muscles intact, Conjunctiva normal, Sclera normal.
NECK normal range of motion, Trachea midline, no jugular venous distention.
RESP no respiratory distress
BACK No obvious deformities
UPPER EXTREMITY Gross Range of motion normal, gross motor strength normal. Right upper extremity AV fistula noted
LOWER EXTREMITY Gross range of motion normal, Gross motor strength normal. There is no gross hematoma. Puncture wound noted to the right groin that is currently not bleeding. There is dried blood noted on the skin. Left groin is dry and intact
NEURO Speech normal, No focal motor deficits include, [place] coma scale 15, Memory normal, Cranial Nerves intact to screening exam.
SKIN Skin warm, dry, and normal in color.
PSYCHIATRIC Patient oriented to person place and time, Normal affect.
Course
Orders/Labs/Results
Orders:
Orders
06/30/24 21:03
Basic Metabolic Panel Urgent
Complete Blood Count/With Diff Urgent
06/30/24 22:31
Sodium Zirconium Cyclosilicate [Lokelma] 10 gram PO NOW STA
Abnormal Lab Results
06/30/24
21:03
RBC 3.02 L 10^6/uL
(4.70-6.10)
Hgb 9.6 L g/dL
(13.0-18.0)
Hct 28.6 L %
(39.0-52.0)
MCV 94.7 H fL
(80.0-94.0)
MCH 31.8 H pg
(27.0-31.0)
RDW 17.8 H %
(11.5-14.5)
Plt Count 126 L 10^3/uL
(130-400)
Absolute Neuts (auto) 7.0 H 10^3/uL
(1.4-6.5)
Absolute Lymphs (auto) 0.5 L 10^3/uL
(1.2-3.4)
Neutrophils % 86.7 H %
(42.2-75.2)
Lymphocytes % 5.9 L %
(20.5-51.1)
Potassium 5.9 H mmol/L
(3.5-5.1)
Chloride 95 L mmol/L
(98-107)
Carbon Dioxide 32 H mmol/L
(22-30)
BUN 42 H mg/dl
(9-20)
Creatinine 7.3 H* mg/dL
(0.7-1.3)
Glucose 103 H mg/dl
(70-99)
06/30/24 21:03
06/30/24 21:03
Vital Signs
Initial and Last Documented VS:
Initial Vital Signs
BP
164/92
06/30/24 19:57
Last Documented Vital Signs
Temp Pulse Resp BP Pulse Ox
98.5 F 61 15 151/81 97
06/30/24 19:59 06/30/24 21:15 06/30/24 21:15 06/30/24 21:00 06/30/24 21:15
MDM/Problems Addressed
MDM/Problems Addressed:
Postoperative hemorrhage
Acute Exacerbation and/or Progression of Chronic Illness:
Coagulopathy on Eliquis
Acute Exacerbation and/or Progression of Chronic Illness: Kidney disease (Potassium labs noted but patient has dialysis tomorrow. Treat with Lokelma)
*Pulse Oximetry
Patient hypoxic: no
*Critical Care Note
Total Time (30-74mins, 75-104mins- exclusive of procedures): Not Applicable
Data Reviewed
Source: patient and spouse
Prescriptions/Medications Considered But Not Given:
Considered Kcentra but no further bleeding.
Patient Management
Escalation/DeEscalation of care consider admission/obs:
68-year-old male who presents with postoperative groin bleeding Patient otherwise appears well and no further bleeding after ED observation. Case discussed with cardiology after [place] who agrees with home management now that the patient has had
no further bleeding. Will hold his dose of Eliquis tonight. Outpatient follow-up recommended. Resting applied
ED Attending Note
-
Portions of this chart may have been created with voice recognition software.� Occasional wrong word or��sound alike� substitutions may have occurred due to the inherent limitations of voice recognition software.
Discharge Plan
Departure
Patient Disposition: Home (Routine Discharge)
Date of Disposition: 06/30/24
Time of Disposition: 22:35
Patient with high blood pressure during this ER visit?: Yes
Discharge Problem:
Post-operative hemorrhage
Instructions: Bleeding After Surgery, BLOOD PRESSURE
Prescriptions:
No Action
cinacalcet 30 MG tablet
30 mg PO HS
acyclovir 200 MG capsule
200 mg PO BID
acetaminophen 325 MG tablet
650 mg PO Q4HPRN PRN (Reason: mild pain/FANG/temp> 100.4F) 0RF
prednisone 5 mg Tablet
5 mg PO DAILY
rosuvastatin 20 mg tablet
20 mg PO HS
nifedipine 30 mg Tablet Extended Release 24hr
30 mg PO DAILY
diltiazem HCl 180 mg capsule,extended release 24hr
180 mg PO BID
Empliciti
IV MONTHLY
Rx Instructions:
unsure of dose
Eliquis 5 mg Tablet
5 mg PO BID
Referrals:
Aguila Escobar, [Family Provider] -
Activity Restrictions/Additional Instructions:
Please see cardiology in follow-up as planned. Please go to dialysis as planned tomorrow. Return immediately for increased bleeding, swelling, fevers or any other concerns
Interventions
Interventions:
*Risk Screen - Suicide Last Done: 06/30/24 19:59
*General Assessment Last Done: 06/30/24 19:59
*Neglect/Abuse Screening Last Done: 06/30/24 19:59
*ED- Fall Risk Assessment Last Done: 06/30/24 19:59
ED-Skin Assessment Last Done: 06/30/24 19:59
Discharge Date and Time
Print Language: TAJIK
[2024-06-30] MEDS: LOKELMA 10 GRAM PO (22:47)
== END 2024-06-30 23:00 | disposition home or self-care (01) ==
LOC: EMR 19:53
PROVIDERS: EMERGENCY PHYSICIAN Emergency Medicine; FAMILY PHYSICIAN Family Medicine
DX: I97.618 Postprocedural hemorrhage of a circulatory system organ or structure following other circulatory system procedure (principal); Y84.8 Other medical procedures as the cause of abnormal reaction of the patient, or of later complication, without mention of misadventure at the time of the procedure; I12.0 Hypertensive chronic kidney disease with stage 5 chronic kidney disease or end stage renal disease; N18.6 End stage renal disease; Z99.2 Dependence on renal dialysis; Z79.01 Long term (current) use of anticoagulants
CPT/HCPCS: 99283; 80048; 85025; 93005

== ENCOUNTER → 2024-08-09 15:58 | Outpatient (REF) | payer MEDICARE, OTHER, SELFPAY ==
[2024-08-09 09:43] LABS: % Basophils 0.7 % (0-2); % Eosinophils 2.5 % (0-6); % Immature Granulocytes 0.7 % (0-0.5); % Lymphocytes 15.5 % (20.5-51.1); % Monocytes 11.4 % (1.7-9.3); % Neutrophils 69.2 % (42.2-75.2); Absolute Eosinophils 0.1 10^3/uL (0-0.7); Absolute Lymphocytes 0.9 10^3/uL (1.2-3.4); Absolute Monocytes 0.6 10^3/uL (0.1-0.6); Absolute Neutrophils 3.9 10^3/uL (1.4-6.5); Hematocrit 34.7 % (39.0-52.0); Hemoglobin 11.6 g/dL (13.0-18.0); Mean Corp Hgb Conc. 33.4 g/dL (33.0-37.0); Mean Corpuscular Hgb 32.1 pg (27.0-31.0); Mean Corpuscular Volume 96.1 fL (80.0-94.0); Mean Platelet Volume 9.6 fL (7.4-10.4); Platelet Count 169 10^3/uL (130-400); Red Blood Cell Count 3.61 10^6/uL (4.70-6.10); Red Cell Dist. Width 15.8 % (11.5-14.5); White Blood Cell Count 5.6 10^3/uL (4.8-10.8)
[2024-08-09 12:33] LABS: ALT (SGPT) 12 U/L (0-50); AST (SGOT) 15 U/L (17-59); Albumin 4.5 g/dl (3.5-5.0); Alkaline Phosphatase 63 U/L (38-126); Blood Urea Nitrogen 42 mg/dl (9-20); Calcium 8.9 mg/dl (8.4-10.2); Carbon Dioxide 27 mmol/L (22-30); Chloride 100 mmol/L (98-107); Glucose 96 mg/dl (70-99); Potassium 4.3 mmol/L (3.5-5.1); Sodium 137 mmol/L (135-145); Total Bilirubin 0.7 mg/dl (0.2-1.3); Total Protein 6.3 g/dl (6.3-8.2); eGFR 7.28
[2024-08-11 04:15] LABS: Beta-2-Microglobulin 29.7 mg/L (<=3.0)
== END ==
LOC: OIDL 15:58
PROVIDERS: ATTENDING PHYSICIAN Nurse Practitioner Acute Care
DX: C90.00 Multiple myeloma not having achieved remission (principal); D63.1 Anemia in chronic kidney disease; R53.82 Chronic fatigue, unspecified; C90.02 Multiple myeloma in relapse; R90.0 Intracranial space-occupying lesion found on diagnostic imaging of central nervous system; D80.1 Nonfamilial hypogammaglobulinemia
CPT/HCPCS: 80053; 82232; 82784; 83521; 84155; 84165; 85025; 86334

== ENCOUNTER 2024-08-30 00:24 | Inpatient (IN) | payer MEDICARE, OTHER, SELFPAY ==
[2024-08-29 15:27] VITALS: BP 134/79
[2024-08-29 15:50] LABS: % Basophils 0.3 % (0-2); % Eosinophils 0.5 % (0-6); % Immature Granulocytes 0.3 % (0-0.5); % Lymphocytes 5.3 % (20.5-51.1); % Monocytes 9.5 % (1.7-9.3); % Neutrophils 84.1 % (42.2-75.2); Absolute Lymphocytes 0.3 10^3/uL (1.2-3.4); Absolute Monocytes 0.6 10^3/uL (0.1-0.6); Absolute Neutrophils 5.3 10^3/uL (1.4-6.5); Hematocrit 26.2 % (39.0-52.0); Mean Corp Hgb Conc. 34.4 g/dL (33.0-37.0); Mean Corpuscular Hgb 31.9 pg (27.0-31.0); Mean Corpuscular Volume 92.9 fL (80.0-94.0); Mean Platelet Volume 9.9 fL (7.4-10.4); Nucleated Red Blood Cells % 0 % (-); Platelet Count 144 10^3/uL (130-400); Red Blood Cell Count 2.82 10^6/uL (4.70-6.10); White Blood Cell Count 6.2 10^3/uL (4.8-10.8)
[2024-08-29 16:10] LABS: ALT (SGPT) 11 U/L (0-50); AST (SGOT) 13 U/L (17-59); Albumin 3.9 g/dl (3.5-5.0); Alkaline Phosphatase 67 U/L (38-126); Blood Urea Nitrogen 24 mg/dl (9-20); Calcium 8.7 mg/dl (8.4-10.2); Carbon Dioxide 32 mmol/L (22-30); Chloride 98 mmol/L (98-107); Glucose 93 mg/dl (70-99); Lipase 48 U/L (23-300); Potassium 4.6 mmol/L (3.5-5.1); Sodium 136 mmol/L (135-145); Total Bilirubin 0.7 mg/dl (0.2-1.3); Total Protein 5.8 g/dl (6.3-8.2); eGFR 12.33
[2024-08-29 19:11] VITALS: BMI 28.7
[2024-08-29 19:34] VITALS: BP 156/89
--- NOTE | 2024-08-29 20:05 | ED.GENMED ---
History of Present Illness
General
Chief Complaint: Abdominal Symptoms
Source: patient
Exam Limitations: none
Time Seen by Provider: 08/29/24 19:46
Nursing documentation reviewed up to this point in time: agreed with
History of Present Illness
History of Present Illness:
68 yr old male with past medical history of multiple myeloma /end-stage renal disease on dialysis Thursday , mitral valve replacement paroxysmal A-fib, renal artery hemorrhage(2021) presents to the ER complaining of right side
abdominal pain nausea and dry heaves for the past 6 days. Patient reports prior to the nausea he received a hepatitis B vaccine. He was nauseous the following day. He has had intermittent vomiting but mostly nausea. Nausea seems to be worse
after food. He does have decreased appetite. He has tried to drink fluids but does feel dehydrated. He does complain of some right-sided abdominal/ flank discomfort and left sided back discomfort.
Denies recent fever/chills.
Past History
Past History
ED Past Medical History: Arrthythmia (Atrial fib), Cancer (Skin CA), GERD, HTN, Renal failure (Dialysis M-W-F), Valvular disease, Other (Multiple Myeloma, Neuropathy, Dizziness, Anemia) and Other (ESRD)
ED Past Surgical History: Cardiac (Mitral valve repair), Orthopedic (Right knee surgery) and Other (Right renal hemorrhage with intra-arterial embolectomy May 2021, Pancreatic cyst)
Social History
Tobacco: Non-smoker
Alcohol: Occasional
Drug: None
Personal:
Living: with family
Employment: Employed
Family History
Family History: Other (Noncontributory)
Review of Systems
Review of Systems
Allergies reviewed?: Yes
Phy Exam
General Physical Exam
General Presentation: no apparent distress
General age: appears stated age
General Skin: warm and dry
General Habitus: normal
General Mental: alert
General Hydration: dry mucous membranes
Cardiovascular Exam
Cardiovascular Exam: regular rate/rhythm, no murmur, normal peripheral pulses and systolic murmur
Pulmonary Exam
Pulmonary Exam: lungs clear and no respiratory distress
Gastrointestinal Exam
Gastrointestinal Exam: other (tender ruq )
Neurological Exam
Neurological Exam: alert and oriented x3
Musculoskeletal Exam
Musculoskeletal Exam: full ROM
Skin Exam
Skin Exam: normal color and warm/dry
Psychiatric Exam
Psychiatric Exam: normal mood/affect
Course
Orders/Labs/Results
Orders:
Orders
08/29/24 15:33
Complete Blood Count/With Diff Urgent
Comprehensive Metabolic Panel Urgent
Lipase Urgent
08/29/24 20:29
0.9% Sodium Chloride 500 ml [Nss] 500 ml IV BOLUS
US Abdomen Complete/Upper Urgent
Comment:
Reason For Exam: RUQ pain
08/29/24 20:30
Ondansetron Injectable [Zofran] 4 mg IV NOW STA
08/29/24 21:28
CT Abd/pelvis W Iv Cont Urgent
Comment:
Reason For Exam: abd pain/back pain/nausea
08/30/24 00:04
Admit/Transfer Patient As Directed
Co-Sign Provider:
Level of Care: Inpatient admission
Assign to:: IMU- Intermediate Care
Physician / Group: Damari Unger
Diagnosis: perinephric hematoma measuring approximately 9.7 x 6.1 x 6.0 cm likely from
Reason for Hospitalization: perinephric hematoma measuring approximately 9.7 x 6.1 x 6.0 cm likely from
ruptured cyst
Expected length of stay greater than two midnights?: Yes
ELOS- Estimated Length of Stay in days: 3
I certify the patient meets the requirements for IP care: Yes
PRN Pain Medication Management As Directed
May give lesser potent ordered pain med per pt: Yes
preference::
Protocol:: Medication orders for pain may be administered in a
manner that supports deferring to patient preference
when the pt is:
- Requesting an ordered lesser potent pain medication.
Least to most potent pain medications are defined
as: acetaminophen < NSAID < tramadol < opioids
(morphine, oxycodone, hydromorphone).
- Requesting a lesser dose of the same medication IF
ORDERED.
- Requesting a less intrusive route of administration
if both routes are prescribed by the provider (PO <
IV).
08/30/24 00:05
Code Status As Directed
Resuscitation Status: Full Code
08/30/24 00:08
EKG [Electrocardiogram (*1)] Stat
Reason for Study: QTc Monitoring
08/30/24 00:15
PRN Pain Medication Management As Directed
May give lesser potent ordered pain med per pt: Yes
preference::
Protocol:: Medication orders for pain may be administered in a
manner that supports deferring to patient preference
when the pt is:
- Requesting an ordered lesser potent pain medication.
Least to most potent pain medications are defined
as: acetaminophen < NSAID < tramadol < opioids
(morphine, oxycodone, hydromorphone).
- Requesting a lesser dose of the same medication IF
ORDERED.
- Requesting a less intrusive route of administration
if both routes are prescribed by the provider (PO <
IV).
08/30/24 00:21
PRN Pain Medication Management As Directed
May give lesser potent ordered pain med per pt: Yes
preference::
Protocol:: Medication orders for pain may be administered in a
manner that supports deferring to patient preference
when the pt is:
- Requesting an ordered lesser potent pain medication.
Least to most potent pain medications are defined
as: acetaminophen < NSAID < tramadol < opioids
(morphine, oxycodone, hydromorphone).
- Requesting a lesser dose of the same medication IF
ORDERED.
- Requesting a less intrusive route of administration
if both routes are prescribed by the provider (PO <
IV).
08/30/24 01:21
Acetaminophen [Tylenol] 650 mg PO Q4HPRN PRN mild pain/FANG/temp> 100.4F
Oxycodone [Roxicodone] 5 mg PO Q4HPRN PRN
08/30/24 01:21
NEPHROLOGY CONSULT Routine
Consulting Provider: Elmer Centeno
Was physician already notified: Yes
Activity As Directed
Activity Level: As Tolerated
Orthostatic Vital Signs As Directed
Orthostatic VS Frequency: Daily
Pneumatic Compression Sleeves As Directed
Type: Knee high
Vital Signs As Directed
Frequency: Per unit guidelines
Weight As Directed
Frequency: Once
Comment: on admission
DX Deep Vein Thrombosis Video Routine
08/30/24 04:24
Type And Crossmatch [Type+Screen] IN AM
Basic Metabolic Panel IN AM
Complete Blood Count/No Diff IN AM
08/30/24 Breakfast
Regular
At Your Request: Full Participation
Does patient need a safe tray?: No
08/30/24 08:00
Acyclovir [Zovirax] 200 mg PO BID
Diltiazem Extended Release [Cardizem Cd] 180 mg PO BID
Prednisone [Deltasone] 5 mg PO DAILY
ferric citrate [Auryxia] See Dose Instructions PO TID
08/30/24 11:44
H&H Q6H
08/30/24 22:00
Cinacalcet HCl [Sensipar] 30 mg PO HS
Rosuvastatin Calcium [Crestor] 20 mg PO HS
Abnormal Lab Results
08/29/24
15:33
RBC 2.82 L 10^6/uL
(4.70-6.10)
Hgb 9.0 L g/dL
(13.0-18.0)
Hct 26.2 L %
(39.0-52.0)
MCH 31.9 H pg
(27.0-31.0)
RDW 15.0 H %
(11.5-14.5)
Absolute Lymphs (auto) 0.3 L 10^3/uL
(1.2-3.4)
Neutrophils % 84.1 H %
(42.2-75.2)
Lymphocytes % 5.3 L %
(20.5-51.1)
Monocytes % 9.5 H %
(1.7-9.3)
Carbon Dioxide 32 H mmol/L
(22-30)
BUN 24 H mg/dl
(9-20)
Creatinine 4.9 H* mg/dL
(0.7-1.3)
AST 13 L U/L
(17-59)
Total Protein 5.8 L g/dl
(6.3-8.2)
08/29/24 15:33
08/29/24 15:33
Vital Signs
Initial and Last Documented VS:
Initial Vital Signs
Temp Pulse Resp BP Pulse Ox
98.8 F 77 16 134/79 98
08/29/24 15:27 08/29/24 15:27 08/29/24 15:27 08/29/24 15:27 08/29/24 15:27
Last Documented Vital Signs
Temp Pulse Resp BP Pulse Ox
98.6 F 78 16 153/92 99
08/30/24 20:18 08/30/24 20:22 08/30/24 20:18 08/30/24 20:22 06/24/25 20:18
Entomology Professor consulted with Physician
Entomology Professor consulted with physician?: Yes (david)
MDM/Problems Addressed
MDM/Problems Addressed:
As documented patient is a 68-year-old male with history of multiple [place] end-stage renal disease on dialysis Thursday history of renal hemorrhage in 2021 and previous renal arterial embolization in 2019 who presents with nausea and
back pain, right flank pain. CAT scan shows prominent right lower perinephric hematoma measuring 9.7 x 6.1 x 6.0 cm. Report does not mention that active bleeding is difficult to exclude as there is a none arterial phase exam. Hemoglobin however
was 11.6 August 09 and is 9.0 today. His vital are stable. Pt is on eliquis . d/c w/ nephrology and admitting hospitalist will require admission for continued observation hemoglobin trending. As discussed hospitalist will reach out to urology.
Chronic conditions affecting care:
On Eliquis for afib
*Radiology
Radiology exam reviewed: radiology read reviewed
*Pulse Oximetry
SaO2: 100
Oxygen Mode of Delivery: Room air
Patient hypoxic: no
*Critical Care Note
Total Time (30-74mins, 75-104mins- exclusive of procedures): Not Applicable
Data Reviewed
Review of Other/Old Records Reveals: Labs, Radiology Studies and Discharge Summary
Source: patient and spouse
Patient Management
Discussion with other providers: Dean Of Students (Nephrology interventional radiology)
ED Attending Note
-
Portions of this chart may have been created with voice recognition software.� Occasional wrong word or��sound alike� substitutions may have occurred due to the inherent limitations of voice recognition software.
Discharge Plan
Departure
Patient Disposition: Admit
Date of Disposition: 08/29/24
Time of Disposition: 23:17
Admit to: Med/Surg
Presentation/result/management discussed w/ accepting MD/DO: Hospitalist
Patient with high blood pressure during this ER visit?: Yes
Condition: Fair
Covid-19: Not Applicable
Discharge Problem:
right perinephric hematoma
Interventions
Interventions:
*Risk Screen - Suicide Last Done: 08/29/24 15:29
*General Assessment Last Done: 08/29/24 19:10
*Neglect/Abuse Screening Last Done: 08/29/24 15:29
*ED- Fall Risk Assessment Last Done: 08/29/24 19:10
*ED COVID-19 Vaccine History Last Done: 08/29/24 19:10
*Nursing Disposition Last Done: 08/30/24 01:29
GE-Slabbz-Zponlbjdyj Assessment Last Done: 08/29/24 19:12
Discharge Date and Time
Discharge Date/Time: 08/30/24 01:30
[2024-08-29] MEDS: NSS 500 IV (21:29)
[2024-08-29] MEDS: ZOFRAN 4 MG IV (21:30)
--- NOTE | 2024-08-29 23:16 | HPS.HSE ---
Family Physician
-
Family Physician: Aguila Escobar
Chief Complaint
-
right side abdominal pain nausea and dry heaves
History of Present Illness
Patient is a 68-year-old male with past medical history significant for hypertension, GERD, paroxysmal atrial fibrillation, multiple myeloma and ESRD and on HD Thursday who presented to [facility] ED for evaluation of right side abdominal
pain nausea and dry heaves for the past 6 days. Patient reports that he started with mild pain, nausea and vomiting that was intermittent approximately 5-6 days ago. He states that depending on what he ate it would be worse and if he took Tylenol it
would help make him more comfortable. Patient denies any fever, chills, shortness of breath, cough, constipation, diarrhea or urinary symptoms.
Medical History
Past Medical History
Past Medical History: Reports Other (pituitary adenoma)
Additional Past Medical History:
hypertension
GERD
paroxysmal atrial fibrillation
multiple myeloma
ESRD and on HD Thursday
mitral valve insufficiency status post repair
pituitary adenoma
Past Surgical History: Reports Other
Additional Past Surgical History:
Mitral valve repair
Right knee surgery
Pituitary mass resection
Social History
Tobacco: Non-smoker
Alcohol: Occasional
Personal:
Living: With Family
Employment: Employed
Family History
Family History: Not pertinent
Allergies / Home Medications
Allergies reflects when Allergies were last updated in [facility].
Home Medications with original date entered in [facility]
Allergy/Medication List:
Allergies
Allergy/AdvReac Type Severity Reaction Status Date / Time
levofloxacin (From Levaquin) Allergy Itching Verified 06/30/24 19:58
Home Medications
cinacalcet 30 mg tablet 30 mg PO HS Kidney Disease 09/20/19
acyclovir 200 mg capsule 200 mg PO BID Infection prevention 12/06/19
acetaminophen 325 mg tablet 650 mg (2 x 325 mg) PO Q4HPRN PRN mild pain/FANG/temp> 100.4F 06/23/21
prednisone 5 mg tablet 5 mg PO DAILY Anti-Inflammatory 10/26/23
rosuvastatin 20 mg tablet 20 mg PO HS High Cholesterol 10/26/23
apixaban 5 mg tablet (Eliquis) 5 mg PO BID 06/07/24
diltiazem HCl 180 mg capsule,extended release 24 hr 180 mg PO BID Heart disease/condition 06/07/24
ferric citrate 210 mg iron tablet (Auryxia) 210 mg PO TID 08/29/24
Review of Systems
-
History Source: Patient
Abdomen/GI: Reports Abdominal Pain, Nausea and Vomiting
Physical Exam
Vital Signs
Vital Signs
Temp Pulse Resp BP Pulse Ox
98.8 F 76 16 156/89 100
08/29/24 15:27 08/29/24 19:34 08/29/24 15:27 08/29/24 19:34 08/29/24 20:06
Physical Exam
General: Well Developed, Well Nourished and No Apparent Distress
HEENT: NormoCephalic, Moist mucous membranes, Atraumatic, Nose Appears Normal and Ears Appear Normal
Respiratory: Clear and Non Labored Respirations
Cardiac: S1/S2 and Regular Rhythm
Breast: Deferred by me
GI: Soft, Non Tender, Non Distended and Normal Bowel Sounds; No Organomegaly
Rectal: Deferred by Provider
Genito-urinary: Deferred by me
Musculoskeletal: No Clubbing, No Cyanosis and No Edema
Skin: Warm and IV/Catheter Site
Neuro: Awake, Alert, AO x 3 and Nonfocal/grossly intact
Psych: Calm and Intact Judgment/Insight
Laboratory Results
-
08/29/24 15:33
08/29/24 15:33
Laboratory Results
Total Bilirubin 0.7 mg/dl (0.2-1.3) 08/29/24 15:33
AST 13 U/L (17-59) L 08/29/24 15:33
ALT 11 U/L (0-50) 08/29/24 15:33
Alkaline Phosphatase 67 U/L (38-126) 08/29/24 15:33
Lipase 48 U/L (23-300) 08/29/24 15:33
Data Reviewed
-
Ultrasound: Report Reviewed by me (abd: 1. No sonographic evidence for cholelithiasis or acute cholecystitis. 2. Increased echogenicity in the liver, compatible with underlying hepatocellular disease, which most commonly relates to fatty
infiltration of the liver. 3. Numerous simple appearing bilateral renal cysts. 4. Borderline spl)
Lab Data: Labs Reviewed by me (hgb 9.0, hct 26.2, BUN 24, Creat 4.9, eGFR 12.33)
Impression/Plan
-
IMPRESSION/PLAN:
#right flank and abdominal pain, nausea and vomiting 2/2 perinephric hematoma measuring approximately 9.7 x 6.1 x 6.0 cm likely from ruptured cyst
hgb 9.0, hct 26.2, BUN 24, Creat 4.9, eGFR 12.33
Abd US: 1. No sonographic evidence for cholelithiasis or acute cholecystitis.
2. Increased echogenicity in the liver, compatible with underlying hepatocellular disease, which most commonly relates to fatty infiltration of the liver.
3. Numerous simple appearing bilateral renal cysts.
4. Borderline splenomegaly.
Abd/Pel CT: 1. Redemonstration of innumerable bilateral benign appearing renal cysts of varying sizes. There is a prominent right lower perinephric hematoma measuring approximately 9.7 x 6.1 x 6.0 cm, possibly secondary to
ruptured cyst(s). Active bleeding difficult to exclude on the basis of this non-arterial phase exam. The patient is status post bilateral renal artery embolization.
2. Splenomegaly.
- Admit to med/surg
- Consult Nephrology
- hold Eliquis
#ESRD
HD Thursday
BUN 24, Creat 4.9, eGFR 12.33
- Consult Nephrology
- continue cinacalcet, Auryxia and prednisone
#paroxysmal atrial fibrillation
- continue diltiazem
- Hold Eliquis
#multiple myeloma
- continue acyclovir
#mitral valve insufficiency status post repair
s/p mitral valve repair
#pituitary adenoma
s/p pituitary mass resection
#hypertension
#GERD
Code status: full code
DVT prophylaxis: SCDs
--- NOTE | 2024-08-29 23:51 | W.PN.UPDATE ---
Update Note
Progress Note Update
Patient seen in conjunction with SLIP COVER SEWER. I agree with the findings on history and physical. I concur with the assessment and plan stated unless otherwise stated.
Briefly, this is a 68-year-old with past medical history significant for multiple myeloma, end-stage renal disease on hemodialysis Thursday, atrial fibrillation status post ablation and on anticoagulation with Eliquis, history of
kidney bleeding status post bilateral renal artery embolism presenting to the emergency department with approximately 5 days of nausea and intermittent right-sided flank pain. Pain is sometimes worse with eating and is helped by Tylenol. He denies
having any fevers or chills. Patient still makes urine and denies dysuria. He denies having frequency or urgency.
In the emergency department he was afebrile, blood pressure was 156/80 with a pulse of 76 and satting 100% on room air.
CBC was unremarkable with a hemoglobin of 9.0 which is similar to prior. Is still status post dialysis today and his electrolytes were stable. LFTs were completely normal. Lipase was normal. CT of the abdomen and pelvis showed innumerable
bilateral benign appearing renal cysts of varying sizes. There is a prominent right lower perinephric hematoma measuring approximately 9.7 x 6.1 x 6.0 cm, possibly secondary to ruptured cyst(s). Active bleeding difficult to exclude on the basis of
this non-arterial phase exam. The patient is status post bilateral renal artery embolization.
The abdominal ultrasound had no evidence of cholelithiasis or cholecystitis, echogenic liver and borderline splenomegally noted.
Assessment and plan
Patient with end-stage renal disease on hemodialysis with history of bilateral cysts status post bleeding in the past and status post bilateral renal artery embolization presents with nausea and right-sided flank pain and was found to have a
perinephric hematoma fairly large in the lower portion and likely secondary to ruptured cysts, cannot rule out active bleeding on the basis of that CT scan. Patient is afebrile, hemodynamically stable and currently pain is well-controlled.
Hemoglobin is 9 and similar to prior.
Ruptured renal cyst/possible bleeding - HD stable.
-Admit to ICU for close monitoring
-Hold Eliquis, last dose 08/29 am.
-Pain control,
- type and screen
- H&H every 6 hours
- transfuse for Hgb < 8 or hemodynamic instability will reverse eliquis if needed
- repeat CT angio if not responding to fluids or blood products
- Urology consult
End-stage renal disease on hemodialysis Thursday
-Nephrology consult
-Renal diet
Atrial fibrillation on anticoagulation status post ablation�currently rate controlled in normal rhythm on examination
-Holding Eliquis
-Continue diltiazem
Multiple myeloma
-Continue acyclovir prophylaxis
DVT prophylaxis�SCDs
CODE STATUS�full code
[2024-08-30] VITALS (15 sets, daily range): BP systolic 142–182; BP diastolic 81–111; PULSE 70–84; BMI 27.9
--- NOTE | 2024-08-30 02:25 | PTCARENOTE ---
Received patient from ED around 0130 this am. Patient aao x3, ambulated independently to bed. Able to make needs known, denies pain. States has had pain, n/v over past week, however denies pain at this time. Patient confirms he still produces urine,
urinal provided and instructed patient to remain in bed at this time until lab results received to assess hgb/bleeding. Understanding verbalized. Oriented to room, call umanzor within reach. Will continue to monitor patient closely.
[2024-08-30] MEDS: SENSIPAR 30 MG PO ×2 (04:00→20:23)
[2024-08-30 04:48] LABS: Hematocrit 26.7 % (39.0-52.0); Hemoglobin 8.9 g/dL (13.0-18.0); Mean Corp Hgb Conc. 33.3 g/dL (33.0-37.0); Mean Corpuscular Hgb 31.3 pg (27.0-31.0); Mean Platelet Volume 9.8 fL (7.4-10.4); Platelet Count 143 10^3/uL (130-400); Red Blood Cell Count 2.84 10^6/uL (4.70-6.10); Red Cell Dist. Width 15.1 % (11.5-14.5); White Blood Cell Count 5.8 10^3/uL (4.8-10.8)
[2024-08-30 05:06] LABS: Blood Urea Nitrogen 32 mg/dl (9-20); Calcium 9.3 mg/dl (8.4-10.2); Carbon Dioxide 31 mmol/L (22-30); Chloride 99 mmol/L (98-107); Estimated Creatinine Clearance 11 ml/min; Glucose 77 mg/dl (70-99); Potassium 4.7 mmol/L (3.5-5.1); Sodium 137 mmol/L (135-145); eGFR 8.62
[2024-08-30] MEDS: TIGAN 200 MG IM (06:03)
[2024-08-30] MEDS: CARDIZEM CD 180 MG PO ×2 (06:03→20:22)
--- NOTE | 2024-08-30 08:21 | W.PN.HOSP.TC ---
Today's Communication/Plan
-
See plan
Assessment / Plan
Assessment / Plan
Impression:
68 years old male with end-stage renal disease on hemodialysis, paroxysmal atrial fibrillation with recent ablation on anticoagulation with Eliquis, multiple myeloma on Biologics presenting with days of right flank pain and persistent nausea. CT
scan of the abdomen pelvis in the emergency room revealed right flank perinephric hematoma.
Right perinephric hematoma likely secondary to ruptured renal cyst and anticoagulation with Eliquis.
Acute blood loss anemia. Anemia of chronic disease/ESRD.
Other conditions:
Paroxysmal atrial fibrillation
� Recent ablation 07/01
Anticoagulation with Eliquis
Mild MR, mild AR
End-stage renal disease on hemodialysis Thursday, Thursday, Thursday
Left upper extremity AV fistula
Essential hypertension
Dyslipidemia
Multiple myeloma Emplicity diagnosed 2015
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
Pituitary adenoma s/p resection 10/30.
Adrenal insufficiency associated with above on chronic prednisone maintenance.
Obstructive sleep apnea on CPAP.
Pulmonary nodules.
Plan:
Right perinephric hematoma, spontaneous and secondary to anticoagulation with Eliquis.
Acute blood loss anemia.
Remains hemodynamically stable.
Noted drop in hemoglobin baseline 11.6-8.9.
Continue close monitoring with serial H&H.
Urology evaluation pending.
If further drop or hemodynamic instability consider CT angiogram.
Eliquis held since admission.
Type and cross
Paroxysmal atrial fibrillation
Status post ablation .
Rate control with Cardizem.
Off Eliquis secondary to above
End-stage renal disease. HD Thursday.
Nephrology evaluation.
Continue Cinacalcet
Multiple myeloma
On Empliciti.
Continue prophylactic acyclovir
Adrenal insufficiency, status post pituitary mass resection.
Continue prednisone 5 mg (maintenance dose)
Anticipated Discharge: 24 - 48 hours
Subjective/Interval History
-
Date of Service: August 30, 2024
Objective Data
-
Labs:
Laboratory Results
08/30/24 08/30/24
04:24 11:55
WBC 5.8
Hgb 8.9 L Pending
Hct 26.7 L Pending
Plt Count 143
Sodium 137
Potassium 4.7
Chloride 99
Carbon Dioxide 31 H
BUN 32 H
Creatinine 6.6 H*
Glucose 77
Calcium 9.3
Vital Signs:
Vital Signs
Temp Pulse Resp BP Pulse Ox
99.3 F 79 25 182/111 96
08/30/24 04:04 08/30/24 07:15 08/30/24 07:15 08/30/24 06:03 08/30/24 07:15
I&O
08/29/24 08/30/24 08/31/24
06:59 06:59 06:59
Output Total 100 / 100
Balance -100 / -100
Physical Exam
-
General: Well Developed and No Apparent Distress
HEENT: Normocephalic, Atraumatic and Moist Mucous Membranes
Respiratory: Clear to Auscultation
Cardiac: Regular Rhythm and S1/S2; Negative Murmur, Rub or Gallop
GI: Soft, Nontender, Nondistended and Normal Bowel Sounds; Negative Organomegaly
Rectal: Deferred by Provider
Musculoskeletal: No Clubbing, No Cyanosis and No Edema
Skin: Negative Rash
Neuro: Nonfocal/Grossly Intact
[2024-08-30] MEDS: DELTASONE 5 MG PO (08:46)
[2024-08-30] MEDS: ZOVIRAX 200 MG PO ×2 (08:46→20:23)
[2024-08-30] MEDS: TYLENOL 650 MG PO ×2 (08:48→20:22)
--- NOTE | 2024-08-30 08:48 | CONS.URO ---
Consultation
-
Date/Time Consultation Performed: 08/30/24 0848
Performing Provider: Peffer
Reason for Consultation: Renal hemorrhage
Medical History
History of Present Illness
68M hx hypertension, GERD, paroxysmal atrial fibrillation s/p recent ablation, multiple myeloma and ESRD and on HD
Past history of b/l renal artery embolization for spontaneous retroperitoneal hemorrhage in 2021
Presented to ED last night for evaluation of right side abdominal pain, nausea and dry heaves for 6 days.
Patient reports that he started with mild pain, nausea and vomiting that was intermittent
Patient denies any fever, chills, shortness of breath, cough, constipation, diarrhea or urinary symptoms.
Denied gross hematuria
On admission he was found to be anemic
CT showed a R retroperitoneal/perinephric hematoma
Vitals stable on admission
Repeat HGB overnight stable
Persistent nausea this AM
Past Medical History
Past Medical History: Other (as above)
Past Surgical History: Other (b/l renal artery embolization)
Social History
Tobacco: Non-smoker
Personal:
Living: With Family
Family History
Family History: Reviewed & Not Pertinent
Allergies/Home Medications
Allergies
Allergy/AdvReac Type Severity Reaction Status Date / Time
levofloxacin (From Levaquin) Allergy Itching Verified 06/30/24 19:58
Home Medications
�Medication �Instructions �Recorded �Confirmed �Type
cinacalcet 30 mg tablet 30 mg PO HS Kidney Disease 09/20/19 08/29/24 History
acyclovir 200 mg capsule 200 mg PO BID Infection prevention 12/06/19 08/29/24 History
acetaminophen 325 mg tablet 650 mg (2 x 325 mg) PO Q4HPRN PRN 06/23/21 08/29/24 Rx
mild pain/FANG/temp> 100.4F
prednisone 5 mg tablet 5 mg PO DAILY Anti-Inflammatory 10/26/23 08/29/24 History
rosuvastatin 20 mg tablet 20 mg PO HS High Cholesterol 10/26/23 08/29/24 History
apixaban 5 mg tablet (Eliquis) 5 mg PO BID 06/07/24 08/29/24 History
diltiazem HCl 180 mg 180 mg PO BID Heart 06/07/24 08/29/24 History
capsule,extended release 24 hr disease/condition
ferric citrate 210 mg iron tablet 210 mg PO TID 08/29/24 08/29/24 History
(Auryxia)
Physical Exam
Vital Signs
Vital Signs
Temp Pulse Resp BP Pulse Ox
99.2 F 79 25 182/111 96
08/30/24 08:23 08/30/24 07:15 08/30/24 07:15 08/30/24 06:03 08/30/24 07:15
Lab / Testing Results
Laboratory Results
08/30/24 04:24
Physical Exam
General: Well Developed, Well Nourished and No Apparent Distress
Respiratory: Clear and Non Labored Respirations
GI: Soft, Non Tender and Non Distended
Genito-urinary: No Costovertebral Tend
Neuro: AO x 3
Psych: Calm and Intact Judgement
Assessment / Plan
-
68M with polycystic kidneys and ESRD on HD
History of renal bleeding requiring b/l renal artery embolization in 2021
Presenting with spontaneous retroperitoneal hemorrhage with perinephric hematoma, likely from renal cyst rupture
- Vitals and HGB stable overnight suggesting little or no persistent bleeding
- Continue to trend vitals and HGB Q6h until stable x24 hours
- Hold Eliquis
- Transfuse as needed for HGB <8 or unstable vitals
- If persistent bleeding is evident then obtain CT angiogram and consider repeat embolization by IR if feasible
- Recommend permanent discontinuation of Eliquis - this will likely prevent future recurrence of large volume bleeding if renal cysts rupture in the future
[2024-08-30] MEDS: COMPAZINE 10 MG IV (11:20)
--- NOTE | 2024-08-30 11:29 | PTCARENOTE ---
Remains nauses all am- d/w provider- IV Compazine given.
[2024-08-30 11:53] LABS: Hematocrit 26.7 % (39.0-52.0); Hemoglobin 9.1 g/dL (13.0-18.0)
--- NOTE | 2024-08-30 13:34 | W.CON.NEPH ---
Consultation
-
Date/Time Consultation Requested: August 29, 2024 at 9 PM
Date/Time Consultation Performed: August 30, 2024 at 12 PM
Requesting Provider: Dr. Freedman
Performing Provider: Dr. Centeno
Reason for Consultation: ESRD
Medical History
-
Chief Complaint: Back pain
History of Present Illness:
Mr. Booker Cannon is a 68YOM with PMH of ESRD on HD MWF at [facility] ED, Afib , Skin Cancer, GERD, HTN, MM (leading to renal failure), secondary hyperparathyroidism
Other significant history includes b/l renal artery embolization for spontaneous retroperitoneal hemorrhage in 2021
Presented to ED last night for evaluation of right side abdominal pain, nausea and dry heaves for 6 days.
On admission he was found to be anemic
CT showed a R retroperitoneal/perinephric hematoma
Renal consult for dialysis management
Past Medical History
PAfib
Skin cancer
GERD
HTN
ESRD on HD MWF
MM
Neuropathy
dizziness
anemia
NUNES with history of right renal hemorrhage
Pituitary adenoma resection
Hyperphosphatemia
Secondary hyperparathyroidism
Right upper extremity AVF
Past Surgical History: Cardiac (MVR), Orthopedic (R knee surgery ) and Other (Right renal hemorrhage with intra-arterial embolectomy May 2021, Pancreatic cys)
Social History
Tobacco: Non-Smoker
Alcohol: Occasional
Drug: None
Personal:
Living: With Family
Family History
Family History: Not Pertinent
Allergies / Home Medications
Allergy/AdvReac Type Severity Reaction Status Date / Time
levofloxacin (From Levaquin) Allergy Itching Verified 06/30/24 19:58
�Medication �Instructions �Recorded �Confirmed �Type
cinacalcet 30 mg tablet 30 mg PO HS Kidney Disease 09/20/19 08/29/24 History
acyclovir 200 mg capsule 200 mg PO BID Infection prevention 12/06/19 08/29/24 History
acetaminophen 325 mg tablet 650 mg (2 x 325 mg) PO Q4HPRN PRN 06/23/21 08/29/24 Rx
mild pain/FANG/temp> 100.4F
prednisone 5 mg tablet 5 mg PO DAILY Anti-Inflammatory 10/26/23 08/29/24 History
rosuvastatin 20 mg tablet 20 mg PO HS High Cholesterol 10/26/23 08/29/24 History
apixaban 5 mg tablet (Eliquis) 5 mg PO BID Blood Clot 06/07/24 08/29/24 History
Prevention/Tx
diltiazem HCl 180 mg 180 mg PO BID Heart 06/07/24 08/29/24 History
capsule,extended release 24 hr disease/condition
ferric citrate 210 mg iron tablet 210 mg PO TID Kidney Disease 08/29/24 08/29/24 History
(Auryxia)
Review of Systems
-
No chest pain or shortness of breath no further back pain and no hematuria
All other systems: Negative unless noted
Physical Exam
Vital Signs
Vital Signs
Temp Pulse Resp BP Pulse Ox
98.1 F 71 12 146/89 94
08/30/24 11:15 08/30/24 11:45 08/30/24 11:45 08/30/24 11:25 08/30/24 09:00
Lab Results
WBC 5.8 10^3/uL (4.8-10.8) 08/30/24 04:24
RBC 2.84 10^6/uL (4.70-6.10) L 08/30/24 04:24
Hgb 9.1 g/dL (13.0-18.0) L 08/30/24 11:44
Hct 26.7 % (39.0-52.0) L 08/30/24 11:44
Plt Count 143 10^3/uL (130-400) 08/30/24 04:24
Sodium 137 mmol/L (135-145) 08/30/24 04:24
Potassium 4.7 mmol/L (3.5-5.1) 08/30/24 04:24
Chloride 99 mmol/L (98-107) 08/30/24 04:24
Carbon Dioxide 31 mmol/L (22-30) H 08/30/24 04:24
BUN 32 mg/dl (9-20) H 08/30/24 04:24
Creatinine 6.6 mg/dL (0.7-1.3) H* 08/30/24 04:24
eGFR 8.62 08/30/24 04:24
Glucose 77 mg/dl (70-99) 08/30/24 04:24
Calcium 9.3 mg/dl (8.4-10.2) 08/30/24 04:24
Albumin 3.9 g/dl (3.5-5.0) 08/29/24 15:33
Data Reviewed
-
CT Scan: Image Personally Visualized and interpreted
Ultrasound: Image Personally Visualized and interpreted
Labs: Labs Reviewed by me, Discussed with Physician and Discussed with Patient
Assessment/Plan
-
Impression:
Retroperitoneal bleed recurrence
End-stage renal disease on Thursday dialysis cath
Anemia
History of multiple myeloma
History of NUNES
History of right renal hemorrhage
History of hyperphosphatemia
History of secondary hyperparathyroid
Hypertension
Paroxysmal atrial fibrillation
History of pituitary adenoma resection with adrenal insufficiency
Plan:
Continue dialysis Thursday and Thursday
Dialysis orders reviewed outpatient= estimated dry weight 87 kg
Urology noted
Trend hemoglobin
No heparin with dialysis
Eliquis on hold indefinitely
No acute need for dialysis today
Dialysis ordered for tomorrow
--- NOTE | 2024-08-30 15:16 | CM ---
Patient with Hx ESRD on HD, multiple myeloma on Biologics with Dx Right perinephric hematoma. Room air. Per nurse; A/O, assist 1 for activity.
Met with patient who resides with his in a 2 story house with 2 steps at entrance.
The patient was independent in ADLS and ambulation.
The patient has HD at [facility] MWF 10am, and drives himself to HD.
The patient has no DME.
Prior [facility] VN and will not have them again - relayed that nurse made him go to hospital due to elevated HR, and he was then discharged.
No prior SNF.
CM continuing to follow for d/c needs.
Plan home.
[2024-08-30] MEDS: CRESTOR 20 MG PO (20:22)
[2024-08-31] VITALS (20 sets, daily range): BP systolic 139–165; BP diastolic 70–100; BMI 28.1
[2024-08-31] MEDS: CARDIZEM CD 180 MG PO (08:15)
[2024-08-31] MEDS: ZOVIRAX 200 MG PO (08:18)
[2024-08-31] MEDS: DELTASONE 5 MG PO (08:18)
[2024-08-31 08:46] LABS: Hematocrit 25.6 % (39.0-52.0); Hemoglobin 8.8 g/dL (13.0-18.0); Mean Corp Hgb Conc. 34.4 g/dL (33.0-37.0); Mean Corpuscular Hgb 31.8 pg (27.0-31.0); Mean Corpuscular Volume 92.4 fL (80.0-94.0); Platelet Count 162 10^3/uL (130-400); Red Blood Cell Count 2.77 10^6/uL (4.70-6.10); Red Cell Dist. Width 15.1 % (11.5-14.5); White Blood Cell Count 5.3 10^3/uL (4.8-10.8)
--- NOTE | 2024-08-31 08:56 | PTCARENOTE ---
Patient received from overnight caregiver. AAO, VSS. Resting comfortably in bed. Scheduled for HD today and most likely discharge after. Call umanzor in reach.
--- NOTE | 2024-08-31 12:32 | W.DCSUMMARY ---
Discharge Summary
Discharge Data
Date of Admission: 08/30/24
Date of Discharge: 08/31/24
-
Pending Results: No
Hospital Course
Impression:
68 years old male with end-stage renal disease on hemodialysis, paroxysmal atrial fibrillation with recent ablation on anticoagulation with Eliquis, multiple myeloma on Biologics presenting with days of right flank pain and persistent nausea. CT
scan of the abdomen pelvis in the emergency room revealed right flank perinephric hematoma.
Right perinephric hematoma likely secondary to ruptured renal cyst and anticoagulation with Eliquis.
Acute blood loss anemia. Anemia of chronic disease/ESRD.
Other conditions:
Paroxysmal atrial fibrillation
� Recent ablation 07/01
Anticoagulation with Eliquis
Mild MR, mild AR
End-stage renal disease on hemodialysis Thursday, Thursday, Thursday
Left upper extremity AV fistula
Essential hypertension
Dyslipidemia
Multiple myeloma Emplicity diagnosed 2015
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
Pituitary adenoma s/p resection 10/30.
Adrenal insufficiency associated with above on chronic prednisone maintenance.
Obstructive sleep apnea on CPAP.
Pulmonary nodules.
Plan:
Right perinephric hematoma, spontaneous and secondary to anticoagulation with Eliquis.
Acute blood loss anemia.
Remains hemodynamically stable.
Hemoglobin stable at 8.8 with no requirements for transfusion.
Urology has been consulted and with no indication for intervention
Paroxysmal atrial fibrillation
Status post ablation .
Rate control with Cardizem.
Off Eliquis definitely
End-stage renal disease. HD Thursday.
Nephrology evaluation.
Continue Cinacalcet
Multiple myeloma
On Empliciti.
Continue prophylactic acyclovir
Adrenal insufficiency, status post pituitary mass resection.
Continue prednisone 5 mg (maintenance dose)
Discharge Plan
-
Patient Disposition: Home (Routine Discharge)
Condition: Good
Diet: Regular
Referrals:
Aguila Escobar, [Family Provider, Family Practice]
Additional Discharge Medication Instructions: Stop Eliquis
Prescriptions:
Continued
cinacalcet 30 MG tablet
30 mg PO HS
acyclovir 200 MG capsule
200 mg PO BID
acetaminophen 325 MG tablet
650 mg PO Q4HPRN PRN (Reason: mild pain/FANG/temp> 100.4F) 0RF
prednisone 5 mg Tablet
5 mg PO DAILY
rosuvastatin 20 mg tablet
20 mg PO HS
diltiazem HCl 180 mg capsule,extended release 24hr
180 mg PO BID
ferric citrate [Auryxia] 210 mg iron Tablet
210 mg PO TID
Discontinued
Eliquis 5 mg Tablet
5 mg PO BID
Discharge Orders:
Discharge Patient (As Directed); Ordered 08/31/24
Ordered By: Thai Freedman
Discharge Date and Time
Print Language: MACEDONIAN
--- NOTE | 2024-08-31 13:55 | W.PN.URO.CBU ---
Today's Communication / Plan
-
Stable for discharge from standpoint
Follow up with me PRN
Assessment / Plan
-
8M with polycystic kidneys and ESRD on HD
History of renal bleeding requiring b/l renal artery embolization in 2021
Presenting with spontaneous retroperitoneal hemorrhage with perinephric hematoma, likely from renal cyst rupture
- Vitals and HGB stable >24hrs suggesting no persistent bleed
- Recommend permanent discontinuation of Eliquis since his afib is resolved post ablation - this will likely prevent future recurrence of large volume bleeding if renal cysts rupture in the future
Stable for discharge from standpoint
Follow up with me PRN
Diagnosis
-
Date of Service: August 31, 2024
-
Patient Diagnosis:
retroperitoneal hematoma
ESRD on HD
polycystic kidneys
Post Op Day:
Subjective
-
feeling well
nausea improved
tolerating diet minimal emesis
minimal pain
HGB stable
Objective
-
Vital Signs
Temp Pulse Resp BP Pulse Ox
98.3 F 76 10 165/94 96
08/31/24 11:30 08/31/24 08:15 08/31/24 06:00 08/31/24 08:15 08/31/24 06:00
Intake and Output
08/30/24 08/31/24 09/01/24
06:59 06:59 06:59
Output Total 100 / 100
Balance -100 / -100
Output:
Urine, Voided 100 / 100
Laboratory Results
08/31/24 08:25
08/30/24 04:24
Physical Exam
-
General - well developed, well nourished, no acute distress
Chest - clear bilaterally
Abdomen - soft, non-tender, no CVAT
[2024-08-31] MEDS: RETACRIT 10000 UNITS IV (14:18)
--- NOTE | 2024-08-31 14:32 | W.PN.NEPH.HD ---
Assessment
-
pt seen during HD
vitals stable
UF as tolerates
hb stable and off AC indefinitely
AVF functions well
noted d/c later today
Progress Note - Hemodialysis
-
Date of Service: August 31, 2024
Duration: 30 minutes and 3 hours
Potassium Bath: 2
Calcium Bath: 2.5
Opti-Dialyzer: 160
Ultrafiltration: Other (1-2kg)
Blood Flow: 400
Dialysate Flow: 600
Heparin: no
EPO: [id number]
--- NOTE | 2024-08-31 14:56 | CM ---
Patient with Hx ESRD on HD, multiple myeloma on Biologics with Dx Right perinephric hematoma. Per nurse; ambulatory in room.
Met with patient who was preparing for discharge.
The patient says he feels ready for discharge home today. IMM completed.
His will provide transport home once dialysis is completed today.
Plan home today.
[2024-08-31] MEDS: TYLENOL 650 MG PO (16:35)
--- NOTE | 2024-08-31 17:00 | PTCARENOTE ---
Patient discharged to home. Discharge instructions reviewed and all questions answered. Patient taken to main lobby via wheelchair and leaving with . Patient left with all known belongings.
== END 2024-08-31 18:04 | disposition home or self-care (01) | DRG 698 ==
LOC: IMU 00:24
PROVIDERS: Internal Medicine; Nurse Practitioner Family; Student in an Organized Health Care Education/Training Program; ADMITTING PHYSICIAN Internal Medicine; ATTENDING PHYSICIAN Internal Medicine; CONSULT PHYSICIAN Internal Medicine Nephrology; EMERGENCY PHYSICIAN Emergency Medicine; FAMILY PHYSICIAN Family Medicine; OTHER PHYSICIAN Urology
PROC: 5A09357 Assistance with Respiratory Ventilation, Less than 24 Consecutive Hours, Continuous Positive Airway Pressure (ICD-10-PCS; 2024-08-30)
PROC: 5A1D70Z Performance of Urinary Filtration, Intermittent, Less than 6 Hours Per Day (ICD-10-PCS; 2024-08-31)
DX: S37.011A Minor contusion of right kidney, initial encounter (principal); N18.6 End stage renal disease; D62 Acute posthemorrhagic anemia; D68.32 Hemorrhagic disorder due to extrinsic circulating anticoagulants; C90.00 Multiple myeloma not having achieved remission; E27.40 Unspecified adrenocortical insufficiency; I12.0 Hypertensive chronic kidney disease with stage 5 chronic kidney disease or end stage renal disease; N25.81 Secondary hyperparathyroidism of renal origin; I48.0 Paroxysmal atrial fibrillation; G47.33 Obstructive sleep apnea (adult) (pediatric); K21.9 Gastro-esophageal reflux disease without esophagitis; Z88.1 Allergy status to other antibiotic agents; Z79.01 Long term (current) use of anticoagulants; Z79.52 Long term (current) use of systemic steroids; Z79.899 Other long term (current) drug therapy; N28.1 Cyst of kidney, acquired; E78.00 Pure hypercholesterolemia, unspecified; D63.1 Anemia in chronic kidney disease; E83.39 Other disorders of phosphorus metabolism; G62.9 Polyneuropathy, unspecified; K76.0 Fatty (change of) liver, not elsewhere classified; Z85.828 Personal history of other malignant neoplasm of skin; Z95.2 Presence of prosthetic heart valve; Z99.2 Dependence on renal dialysis
CPT/HCPCS: 74177; 76700; 80048; 80053; 83690; 85014; 85018; 85025; 85027; 86850; 86900; 86901; 87070; 93005; 94660; 96361; 96374; 99285; G0257; Q5106; Q9967

== ENCOUNTER 2024-09-01 17:46 | Emergency (ER) | payer MEDICARE, OTHER, SELFPAY ==
[2024-09-01 17:49] VITALS: BP 137/87
[2024-09-01 18:30] VITALS: BMI 28.9
--- NOTE | 2024-09-01 18:42 | ED.GENMED ---
History of Present Illness
General
Chief Complaint: Abdominal Symptoms
Source: patient
Exam Limitations: none
Time Seen by Provider: 09/01/24 18:41
Nursing documentation reviewed up to this point in time: agreed with
History of Present Illness
History of Present Illness:
68-year-old male with history of neuropathy, A-fib not anticoagulated, His Eliquis was discontinued since his A-fib was resolved post ablation, HTN, mitral valve repair recently, GERD, polycystic kidney disease, ESRD on hemodialysis, history of
renal bleeding bilateral renal artery embolization in 2021 was discharged yesterday with diagnosis of spontaneous retroperitoneal hemorrhage with perinephric hematoma, likely from a renal cyst rupture.
He is back today stating he has been SOB with exertion and feeling fatigued.
He also has been vomiting once a day in the mornings for past few weeks. Denies nausea, just sometimes when I eat I can't hold it down.
Also left upper arm at site of Hep B shot 2 weeks ago is still sore and radiating down to elbow.
Past History
Past History
ED Past Medical History: Arrthythmia (Atrial fib), Cancer (Skin CA), GERD, HTN, Renal failure (Dialysis -W-), Valvular disease, Other (Multiple Myeloma, Neuropathy, Dizziness, Anemia) and Other (ESRD)
ED Past Surgical History: Cardiac (Mitral valve repair), Orthopedic (Right knee surgery) and Other (Right renal hemorrhage with intra-arterial embolectomy May 2021, Pancreatic cyst)
Social History
Tobacco: Non-smoker
Alcohol: Occasional
Drug: None
Personal:
Living: with family
Employment: Employed
Family History
Family History: Other (Noncontributory)
Review of Systems
Review of Systems
Allergies reviewed?: Yes
All Other Systems: ROS reviewed and negative except as documented in HPI and ROS
Constitutional: Reports fatigue; Denies fever
Respiratory: Reports trouble breathing (short of breath 'sometimes' with exertion)
Cardiac: Denies chest pain
ABD/GI: Denies abdominal pain, nausea, vomiting or diarrhea
: Reports other (Dialysis patient, makes a little urine.)
Musculoskeletal: Reports other (pain left deltoid with radiation to elbow since getting IM Hep B shot 2 weeks ago); Denies edema
Skin: Reports other (Dialysis fistula right forearm)
Neurological: Denies weakness or numbness
Phy Exam
Physical Exam
Physical Exam:
GENERAL: No acute distress. A&Ox3.
CONSTITUTIONAL: Afebrile.
EYES: clear, conjunctivae normal
ENMT: moist mucus membranes, Pharynx nl
RESPIRATORY: Regular respirations, nonlabored, lungs clear.
CARDIOVASCULAR: Regular rate and rhythm, no murmurs, no rubs.
GI: Soft, nontender, normal BS
MUSCULOSKELETAL: Moves with ease. Well perfused.LUE is without swelling, redness, warmth. Tender deltoid at site of previous injection., mild ecchymosis here
SKIN: Warm, dry, pink. R forearm dialysis AV fistula with good thrill.
Psyche: Calm pleasant
Neuro: No focal deficits.
Course
Orders/Labs/Results
Orders:
Orders
09/01/24 18:51
Basic Metabolic Panel Urgent
Complete Blood Count/With Diff Urgent
Abnormal Lab Results
09/01/24
18:51
RBC 2.91 L 10^6/uL
(4.70-6.10)
Hgb 9.1 L g/dL
(13.0-18.0)
Hct 26.4 L %
(39.0-52.0)
MCH 31.3 H pg
(27.0-31.0)
RDW 15.0 H %
(11.5-14.5)
Absolute Lymphs (auto) 0.4 L 10^3/uL
(1.2-3.4)
Absolute Monos (auto) 0.7 H 10^3/uL
(0.1-0.6)
Neutrophils % 78.2 H %
(42.2-75.2)
Lymphocytes % 6.5 L %
(20.5-51.1)
Monocytes % 11.8 H %
(1.7-9.3)
Sodium 130 L mmol/L
(135-145)
Chloride 96 L mmol/L
(98-107)
BUN 31 H mg/dl
(9-20)
Creatinine 7.0 H* mg/dL
(0.7-1.3)
09/01/24 18:51
09/01/24 18:51
Vital Signs
Initial and Last Documented VS:
Initial Vital Signs
Temp Pulse Resp BP Pulse Ox
98.1 F 76 20 137/87 99
09/01/24 17:49 09/01/24 17:49 09/01/24 17:49 09/01/24 17:49 09/01/24 17:49
Last Documented Vital Signs
Temp Pulse Resp BP Pulse Ox
98.1 F 76 16 137/87 98
09/01/24 17:49 09/01/24 20:22 09/01/24 20:22 09/01/24 17:49 09/01/24 20:22
MDM/Problems Addressed
Differential Diagnosis Includes:
Anemia, dehydration
MDM/Problems Addressed:
68-year-old male with history of neuropathy, A-fib not anticoagulated, His Eliquis was discontinued since his A-fib was resolved post ablation, HTN, mitral valve repair recently, GERD, polycystic kidney disease, ESRD on hemodialysis, history of
renal bleeding bilateral renal artery embolization in 2021 was discharged yesterday with diagnosis of spontaneous retroperitoneal hemorrhage with perinephric hematoma, likely from a renal cyst rupture.
He is back today stating he has been SOB with exertion and feeling fatigued.
He is afraid his Hgb is low again.
7:30 PM:
No hypoxemia.
No infectious symptoms
CBC with no clinically significant abnormality, hemoglobin improved from yesterday
CMP: Sodium 130, otherwise consistent with his ESRD
Patient reassured that his hemoglobin was improved, he is on a fluid restriction, given outpatient lab slip to have his sodium rechecked after the weekend.
His PCP called him to set up a follow-up appointment after his discharge yesterday but he told them he did not want to make a follow-up appointment
I recommended that he call them back tomorrow make a follow-up appointment for next week after he gets his lab work done. He says he will do that
Patient fatigue and intermittent shortness of breath on exertion is most likely to be expected in this early recovery from significant anemia
Pt ambulated out with normal gait with at discharge
They were very appreciative of the care
*Pulse Oximetry
SaO2: 99
Oxygen Mode of Delivery: Room air
Patient hypoxic: no
*Critical Care Note
Total Time (30-74mins, 75-104mins- exclusive of procedures): Not Applicable
ED Attending Note
-
Portions of this chart may have been created with voice recognition software.� Occasional wrong word or��sound alike� substitutions may have occurred due to the inherent limitations of voice recognition software.
Discharge Plan
Departure
Patient Disposition: Home (Routine Discharge)
Date of Disposition: 09/01/24
Time of Disposition: 19:48
Patient with high blood pressure during this ER visit?: No
Condition: Good
Discharge Problem:
Fatigue, Dyspnea on exertion, Hyponatremia
Instructions: Fatigue, Shortness of breath, Acid reflux and GERD in adults, Hyponatremia
Prescriptions:
New
pantoprazole 40 mg tablet,delayed release (DR/EC)
40 mg PO DAILY Qty: 30 0RF
No Action
cinacalcet 30 MG tablet
30 mg PO HS
acyclovir 200 MG capsule
200 mg PO BID
acetaminophen 325 MG tablet
650 mg PO Q4HPRN PRN (Reason: mild pain/FANG/temp> 100.4F) 0RF
prednisone 5 mg Tablet
5 mg PO DAILY
rosuvastatin 20 mg tablet
20 mg PO HS
diltiazem HCl 180 mg capsule,extended release 24hr
180 mg PO BID
ferric citrate [Auryxia] 210 mg iron Tablet
210 mg PO TID
Referrals:
Aguila Escobar DO [Family Provider, Family Practice] - Call in 1-3 days for appt
Michelle Lafleur DO [Active, Gastroenterology] - Next open appointment
Activity Restrictions/Additional Instructions:
As we discussed, your sodium is a little low, continue your fluid restriction and have your blood work rechecked on Thursday or Thursday.
Call your PCP office tomorrow and make an appointment for follow-up for Thursday or , by that time the blood work should be back.
Your fatigue and shortness of breath with exertion is most likely from your anemia, it will take some time to heal and get stronger as you were just in the hospital for a pretty major event.
I sent a prescription to your pharmacy for Pantoprazole (it may be over the counter).
Call the GI doctor's office and make next available appointment
Interventions
Interventions:
*Risk Screen - Suicide Last Done: 09/01/24 17:49
*General Assessment Last Done: 09/01/24 17:49
*Neglect/Abuse Screening Last Done: 09/01/24 17:49
*ED- Fall Risk Assessment Last Done: 09/01/24 18:31
*ED COVID-19 Vaccine History Last Done: 09/01/24 18:31
*Nursing Disposition Last Done: 09/01/24 20:22
GD-Fssssz-Rbpskhhhug Assessment Last Done: 09/01/24 18:31
Discharge Date and Time
Discharge Date/Time: 09/01/24 20:24
Print Language: WELSH
[2024-09-01 18:58] LABS: % Basophils 0.7 % (0-2); % Eosinophils 2.3 % (0-6); % Immature Granulocytes 0.5 % (0-0.5); % Lymphocytes 6.5 % (20.5-51.1); % Monocytes 11.8 % (1.7-9.3); % Neutrophils 78.2 % (42.2-75.2); Absolute Eosinophils 0.1 10^3/uL (0-0.7); Absolute Lymphocytes 0.4 10^3/uL (1.2-3.4); Absolute Monocytes 0.7 10^3/uL (0.1-0.6); Absolute Neutrophils 4.7 10^3/uL (1.4-6.5); Hematocrit 26.4 % (39.0-52.0); Hemoglobin 9.1 g/dL (13.0-18.0); Mean Corp Hgb Conc. 34.5 g/dL (33.0-37.0); Mean Corpuscular Hgb 31.3 pg (27.0-31.0); Mean Corpuscular Volume 90.7 fL (80.0-94.0); Mean Platelet Volume 9.1 fL (7.4-10.4); Nucleated Red Blood Cells % 0 % (-); Platelet Count 183 10^3/uL (130-400); Red Blood Cell Count 2.91 10^6/uL (4.70-6.10)
[2024-09-01 19:17] LABS: Blood Urea Nitrogen 31 mg/dl (9-20); Calcium 8.9 mg/dl (8.4-10.2); Carbon Dioxide 25 mmol/L (22-30); Chloride 96 mmol/L (98-107); Estimated Creatinine Clearance 10 ml/min; Glucose 89 mg/dl (70-99); Sodium 130 mmol/L (135-145); eGFR 8.03
== END 2024-09-01 20:24 | disposition home or self-care (01) ==
LOC: EMR 17:46
PROVIDERS: Registered Nurse; EMERGENCY PHYSICIAN Emergency Medicine; FAMILY PHYSICIAN Family Medicine
DX: E87.1 Hypo-osmolality and hyponatremia (principal); R06.09 Other forms of dyspnea; R53.83 Other fatigue; I12.0 Hypertensive chronic kidney disease with stage 5 chronic kidney disease or end stage renal disease; N18.6 End stage renal disease; Z99.2 Dependence on renal dialysis; I48.91 Unspecified atrial fibrillation
CPT/HCPCS: 99283; 80048; 85025

== ENCOUNTER → 2024-09-06 11:56 | Outpatient (REF) | payer MEDICARE, OTHER, SELFPAY ==
[2024-09-06 13:36] LABS: Blood Urea Nitrogen 32 mg/dl (9-20); Calcium 8.9 mg/dl (8.4-10.2); Carbon Dioxide 31 mmol/L (22-30); Chloride 99 mmol/L (98-107); Glucose 86 mg/dl (70-99); Potassium 4.7 mmol/L (3.5-5.1); Sodium 136 mmol/L (135-145); eGFR 7.90
== END ==
LOC: REG 11:56
PROVIDERS: ATTENDING PHYSICIAN Registered Nurse; FAMILY PHYSICIAN Family Medicine
DX: Z09 Encounter for follow-up examination after completed treatment for conditions other than malignant neoplasm (principal)
CPT/HCPCS: 36415; 80048

== ENCOUNTER → 2024-10-04 10:52 | Outpatient (REF) | payer MEDICARE, OTHER, SELFPAY ==
[2024-10-04 09:39] LABS: Hematocrit 32.8 % (39.0-52.0); Hemoglobin 10.6 g/dL (13.0-18.0); Mean Corp Hgb Conc. 32.3 g/dL (33.0-37.0); Mean Corpuscular Volume 94.8 fL (80.0-94.0); Platelet Count 103 10^3/uL (130-400); Red Cell Dist. Width 16.3 % (11.5-14.5)
[2024-10-04 10:35] LABS: ALT (SGPT) 13 U/L (0-50); AST (SGOT) 15 U/L (17-59); Albumin 4.5 g/dl (3.5-5.0); Alkaline Phosphatase 65 U/L (38-126); Blood Urea Nitrogen 58 mg/dl (9-20); Calcium 9.3 mg/dl (8.4-10.2); Carbon Dioxide 32 mmol/L (22-30); Chloride 95 mmol/L (98-107); Glucose 106 mg/dl (70-99); LDH 215 U/L (120-246); Potassium 5.2 mmol/L (3.5-5.1); Sodium 137 mmol/L (135-145); Total Protein 6.2 g/dl (6.3-8.2); eGFR 7.77
== END ==
LOC: OIDL 10:52
PROVIDERS: ATTENDING PHYSICIAN Internal Medicine Hematology & Oncology
DX: C90.00 Multiple myeloma not having achieved remission (principal); D63.1 Anemia in chronic kidney disease; R53.83 Other fatigue; C90.02 Multiple myeloma in relapse; R90.0 Intracranial space-occupying lesion found on diagnostic imaging of central nervous system; D80.1 Nonfamilial hypogammaglobulinemia
CPT/HCPCS: 80053; 83615; 85025

== ENCOUNTER 2024-10-17 02:02 | Inpatient (IN) | payer MEDICARE, OTHER, SELFPAY ==
[2024-10-16 21:01] VITALS: BP 140/100
--- NOTE | 2024-10-16 21:55 | ED.GENMED ---
History of Present Illness
<Dakotah Wilson MD, Resident - Last Filed: 10/17/24 00:38>
General
Chief Complaint: Breathing Problem
Source: patient and family
Time Seen by Provider: 10/16/24 21:48
Nursing documentation reviewed up to this point in time: agreed with
History of Present Illness
History of Present Illness:
68-year-old male with past medical history of end-stage renal disease on dialysis Thursday, A-fib post ablation, not on Eliquis, peripheral neuropathy comes to the ED due to 2 months of shortness of breath and increased bilateral
lower extremity edema which has worsened recently. He says that he has this mid-epigastric abdominal tenderness alongside the shortness of breath but eating makes it better. He has not had any fevers or chills, and has had no nausea or vomiting.
Has had no cough, chest pain or any headaches. He states that his dialysis sessions have been going well and he had no lightheadedness during them however he has had to use some oxygen during sessions to feel better. Overall, patient just wants to
understand why he is feeling short of breath and having bilateral pedal edema.
Past History
<Dakotah Wilson MD, Resident - Last Filed: 10/17/24 00:38>
Past History
ED Past Medical History: Arrthythmia (Atrial fib), Cancer (Skin CA), GERD, HTN, Renal failure (Dialysis M-W-F), Valvular disease, Other (Multiple Myeloma, Neuropathy, Dizziness, Anemia) and Other (ESRD)
ED Past Surgical History: Cardiac (Mitral valve repair), Orthopedic (Right knee surgery) and Other (Right renal hemorrhage with intra-arterial embolectomy May 2021, Pancreatic cyst)
Social History
Tobacco: Non-smoker
Alcohol: Occasional
Drug: None
Personal:
Living: with family
Employment: Employed
Family History
Family History: Other (Noncontributory)
Review of Systems
<Dakotah Wilson MD, Resident - Last Filed: 10/17/24 00:38>
Review of Systems
Allergies reviewed?: Yes
Constitutional: Reports fatigue; Denies fever or chills
EENT: Reports no symptoms
Respiratory: Reports trouble breathing; Denies cough
Cardiac: Denies chest pain or palpitations
ABD/GI: Reports abdominal pain (Mid-epigastric); Denies nausea, vomiting or diarrhea
: Reports no symptoms
Musculoskeletal: Reports edema (Bilateral lower extremity edema)
Skin: Reports no symptoms
Neurological: Reports no symptoms
Endocrine: Reports no symptoms
Hematologic/Lymphatic: Reports no symptoms
Psychiatric: Reports no symptoms
Phy Exam
<Dakotah Wilson MD, Resident - Last Filed: 10/17/24 00:38>
General Physical Exam
General Presentation: mild distress
General Skin: warm and dry
General Habitus: normal
General Mental: alert
General Hydration: appears well hydrated
Cardiovascular Exam
Cardiovascular Exam: regular rate/rhythm and no murmur
Pulmonary Exam
Pulmonary Exam: lungs clear, no respiratory distress, no crackles and no wheezing
Gastrointestinal Exam
Gastrointestinal Exam: normal bowel sounds, soft, non distended and tender (Mid-epigastric mild tenderness)
Musculoskeletal Exam
Musculoskeletal Exam: edema (Bilateral lower extremity 1+ edema)
Scores
<Dakotah Wilson MD, Resident - Last Filed: 10/17/24 00:38>
Heart Failure Risk
Heart Failure Risk Score: Not Applicable
Course
<Dakotah Wilson MD, Resident - Last Filed: 10/17/24 00:38>
Orders/Labs/Results
Orders:
Orders
10/16/24 21:05
ECG [Electrocardiogram (*1)] Urgent
Reason for Study: Shortness of Breath
EKG- Treatment ONCE
10/16/24 22:08
Cardiac Monitoring- Treatment ONCE
IV Insert/Care/Rem.- Treatment PRN
Pulse Ox/cont/shift [RESP] Stat
Quantity: 1
10/16/24 22:36
Complete Blood Count/With Diff Urgent
Comprehensive Metabolic Panel Urgent
Lipase Urgent
NT-proBNP Urgent
10/16/24 23:42
Sodium Zirconium Cyclosilicate [Lokelma] 5 gram PO NOW STA
10/17/24 00:00
CR Chest - 2 Views Urgent
Reason For Exam: Shortness of breath
10/17/24 00:25
CT Abd/pelvis W Iv Cont Urgent
Comment:
Reason For Exam: abd pain-esrd ok to scan
Dextrose 50%-Water [Dextrose 50% Syringe] 12.5 grams IV [id number] PRN
Dextrose 50%-Water [Dextrose 50% Syringe] 25 grams IV NOW STA
Insulin Human Regular [Novolin R] 5 units IV NOW STA
Bedside Glucose PRE IV Insulin- HyperK+ NOW
10/17/24 01:55
Bedside Glucose POST IV Insulin- HyperK+ Q1HX2,Q2HX2
10/17/24 02:55
Potassium Urgent
Comment: draw 2 hours after regular insulin IV administration
Abnormal Lab Results
10/16/24
22:36
RBC 3.75 L 10^6/uL
(4.70-6.10)
Hgb 11.4 L g/dL
(13.0-18.0)
Hct 34.9 L %
(39.0-52.0)
MCHC 32.7 L g/dL
(33.0-37.0)
RDW 16.4 H %
(11.5-14.5)
Plt Count 113 L 10^3/uL
(130-400)
Absolute Neuts (auto) 6.8 H 10^3/uL
(1.4-6.5)
Absolute Lymphs (auto) 0.6 L 10^3/uL
(1.2-3.4)
Neutrophils % 84.5 H %
(42.2-75.2)
Lymphocytes % 7.1 L %
(20.5-51.1)
Potassium 6.4 H* mmol/L
(3.5-5.1)
BUN 71 H mg/dl
(9-20)
Creatinine 8.7 H* mg/dL
(0.7-1.3)
Total Protein 6.2 L g/dl
(6.3-8.2)
10/16/24 22:36
Vital Signs
Initial and Last Documented VS:
Initial Vital Signs
Temp Pulse Resp BP Pulse Ox
97.8 F 78 24 140/100 98
10/16/24 21:01 10/16/24 21:01 10/16/24 21:01 10/16/24 21:01 10/16/24 21:01
Last Documented Vital Signs
Temp Pulse Resp BP Pulse Ox
97.8 F 71 17 148/111 98
10/16/24 21:01 10/16/24 23:59 10/16/24 23:59 10/17/24 00:00 10/16/24 23:59
<Tu Varner, DO - Last Filed: 10/17/24 00:26>
Orders/Labs/Results
Orders:
Orders
10/16/24 21:05
ECG [Electrocardiogram (*1)] Urgent
Reason for Study: Shortness of Breath
EKG- Treatment ONCE
10/16/24 22:08
Cardiac Monitoring- Treatment ONCE
IV Insert/Care/Rem.- Treatment PRN
Pulse Ox/cont/shift [RESP] Stat
Quantity: 1
10/16/24 22:36
Complete Blood Count/With Diff Urgent
Comprehensive Metabolic Panel Urgent
Lipase Urgent
NT-proBNP Urgent
10/16/24 23:42
Sodium Zirconium Cyclosilicate [Lokelma] 5 gram PO NOW STA
10/17/24 00:00
CR Chest - 2 Views Urgent
Reason For Exam: Shortness of breath
10/17/24 00:25
CT Abd/pelvis W Iv Cont Urgent
Comment:
Reason For Exam: abd pain-esrd ok to scan
Dextrose 50%-Water [Dextrose 50% Syringe] 12.5 grams IV [id number] PRN
Dextrose 50%-Water [Dextrose 50% Syringe] 25 grams IV NOW STA
Insulin Human Regular [Novolin R] 5 units IV NOW STA
Bedside Glucose PRE IV Insulin- HyperK+ NOW
10/17/24 01:55
Bedside Glucose POST IV Insulin- HyperK+ Q1HX2,Q2HX2
10/17/24 02:55
Potassium Urgent
Comment: draw 2 hours after regular insulin IV administration
Abnormal Lab Results
10/16/24
22:36
RBC 3.75 L 10^6/uL
(4.70-6.10)
Hgb 11.4 L g/dL
(13.0-18.0)
Hct 34.9 L %
(39.0-52.0)
MCHC 32.7 L g/dL
(33.0-37.0)
RDW 16.4 H %
(11.5-14.5)
Plt Count 113 L 10^3/uL
(130-400)
Absolute Neuts (auto) 6.8 H 10^3/uL
(1.4-6.5)
Absolute Lymphs (auto) 0.6 L 10^3/uL
(1.2-3.4)
Neutrophils % 84.5 H %
(42.2-75.2)
Lymphocytes % 7.1 L %
(20.5-51.1)
Potassium 6.4 H* mmol/L
(3.5-5.1)
BUN 71 H mg/dl
(9-20)
Creatinine 8.7 H* mg/dL
(0.7-1.3)
Total Protein 6.2 L g/dl
(6.3-8.2)
10/16/24 22:36
Vital Signs
Initial and Last Documented VS:
Initial Vital Signs
Temp Pulse Resp BP Pulse Ox
97.8 F 78 24 140/100 98
10/16/24 21:01 10/16/24 21:01 10/16/24 21:01 10/16/24 21:01 10/16/24 21:01
Last Documented Vital Signs
Temp Pulse Resp BP Pulse Ox
97.8 F 71 17 148/111 98
10/16/24 21:01 10/16/24 23:59 10/16/24 23:59 10/17/24 00:00 10/16/24 23:59
<Dakotah Wilson MD, Resident - Last Filed: 10/17/24 00:38>
MDM/Problems Addressed
Differential Diagnosis Includes:
Fatigue from Dialysis treatment for ESRD
Volume Overload/CHF
Anemia
Pneumonia
GERD
Pancreatitis
MDM/Problems Addressed:
Will get basic blood work including CMP, CBC and Lipase
Will get CXR to check for any acute cardiopulmonary process
Will check proBNP
CMP shows hyperkalemia, will give dose of Lokelma. Creatinine elevated but due to Dialysis treatment tomorrow
proBNP elevated but may be due to Dialysis treatment
CXR shows marked volume overload status. Will admit him to hospitalist service. Discussed with Dr. Gaona who states that patient will be Dialyzed in the morning and to give some Insulin and D50
Chronic conditions affecting care: HTN, Arrhythmia and Kidney disease
<Dakotah Wilson MD, Resident - Last Filed: 10/17/24 00:38>
*Pulse Oximetry
SaO2: 98
Oxygen Mode of Delivery: Room air
Patient hypoxic: no
*Critical Care Note
Total Time (30-74mins, 75-104mins- exclusive of procedures): Not Applicable
<Tu Varner, DO - Last Filed: 10/17/24 00:26>
Update Note
Update Note:
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
ED Attending Note
<Dakotah Wilson MD, Resident - Last Filed: 10/17/24 00:38>
-
Portions of this chart may have been created with voice recognition software.� Occasional wrong word or��sound alike� substitutions may have occurred due to the inherent limitations of voice recognition software.
<Tu Varner, DO - Last Filed: 10/17/24 00:26>
ED Attending Note
Patient seen and examined by attending physician: Yes
I performed a history and physical exam of patient and discussed management with resident, I reviewed resident's note and agree with documented findings and plan of care.: Yes
ED Attending Note:
Seen with resident examined independently 68-year male ESRD for [address] Gaona at all, has been compliant with his treatment, no change in his weight feels short of breath acute on chronic as leg edema gets black stools he
states from his medications, no fevers, will check chest x-ray CBC,
Discharge Plan
Departure
Patient Disposition: Admit
Date of Disposition: 10/17/24
Time of Disposition: 00:30
Admit to: Med/Surg
Presentation/result/management discussed w/ accepting MD/DO: Hospitalist
Patient with high blood pressure during this ER visit?: Yes
Condition: Serious
Discharge Problem:
Shortness of breath
Prescriptions:
No Action
cinacalcet 30 MG tablet
30 mg PO HS
acyclovir 200 MG capsule
200 mg PO BID
prednisone 5 mg Tablet
5 mg PO DAILY
rosuvastatin 20 mg tablet
20 mg PO HS
diltiazem HCl 180 mg capsule,extended release 24hr
180 mg PO BID
ferric citrate [Auryxia] 210 mg iron Tablet
210 mg PO MEALS
famotidine 10 mg Tablet
10 mg PO DAILY
amlodipine 5 mg Tablet
5 mg PO DAILY
Referrals:
Aguila Escobar DO [Family Provider, Family Practice]
Interventions
Interventions:
*Risk Screen - Suicide Last Done: 10/16/24 21:01
*General Assessment Last Done: 10/16/24 22:18
*Neglect/Abuse Screening Last Done: 10/16/24 21:01
*ED- Fall Risk Assessment Last Done: 10/16/24 22:37
ED- Cardiac Assessment Last Done: 10/16/24 22:44
ED- Pulmonary Assessment Last Done: 10/16/24 22:44
Discharge Date and Time
Print Language: GUAMANIAN
[2024-10-16 22:18] VITALS: BMI 29.2
[2024-10-16 22:43] VITALS: BP 143/104
[2024-10-16 22:47] LABS: Hematocrit 34.9 % (39.0-52.0); Hemoglobin 11.4 g/dL (13.0-18.0); Mean Corp Hgb Conc. 32.7 g/dL (33.0-37.0); Mean Corpuscular Volume 93.1 fL (80.0-94.0); Nucleated Red Blood Cells % 0 % (-); Platelet Count 113 10^3/uL (130-400); Red Cell Dist. Width 16.4 % (11.5-14.5)
--- NOTE | 2024-10-16 22:50 | EDRN ---
Pt reports sob x 2 months and increased swelling in lower extremities. Pt gets dialysis M-W- and has been compliant with going. Pt denies fever/chills/cough, cp, n/v/d/c, dizziness, weakness.
[2024-10-16 23:00] VITALS: BP 156/99
[2024-10-16 23:09] LABS: ALT (SGPT) 32 U/L (0-50); AST (SGOT) 30 U/L (17-59); Albumin 4.5 g/dl (3.5-5.0); Alkaline Phosphatase 77 U/L (38-126); Blood Urea Nitrogen 71 mg/dl (9-20); Calcium 9.3 mg/dl (8.4-10.2); Carbon Dioxide 28 mmol/L (22-30); Chloride 102 mmol/L (98-107); Estimated Creatinine Clearance 8 ml/min; Glucose 91 mg/dl (70-99); Lipase 90 U/L (23-300); Potassium 6.4 mmol/L (3.5-5.1); Sodium 139 mmol/L (135-145); Total Protein 6.2 g/dl (6.3-8.2); eGFR 6.19
[2024-10-16] MEDS: LOKELMA 5 GRAM PO (23:55)
[2024-10-17] VITALS (8 sets, daily range): BP systolic 125–155; BP diastolic 76–111; BMI 29.0
[2024-10-17 00:38] LABS: Glucose - Point of Care 90 mg/dl (70-99)
[2024-10-17] MEDS: DEXTROSE 50% SYRINGE 25 GRAMS IV (00:39)
[2024-10-17] MEDS: NOVOLIN R 5 UNITS IV (00:45)
--- NOTE | 2024-10-17 01:46 | HPS.HSE ---
Family Physician
-
Family Physician: Aguila Escobar
Chief Complaint
-
SOB
History of Present Illness
Patient is a 68y M with PMH significant for multiple myeloma, polyarteritis nodosa, ESRD on HD and valvular heart disease who presents to ED complaining of SOB. Patient states that these symptoms have been gradually progressive over the past 2
months or so. He notes dyspnea with activity / exertion - but not consistently. Symptoms tend to 'come and go'. He notes associated pressure / tightness / heaviness in the lower chest / epigastric region. No cough. No fevers / chills. No N/V/D.
Patient states that he has been compliant with his dietary / fluid restrictions.
He has not missed any dialysis sessions. He does reports that he frequently develops leg cramps on HD requiring replacement of IV fluids to alleviate these symptoms.
Despite this he says that he has remained at his projected dry weight.
Patient has h/o A-Fib and underwent ablation in June 2024. He states that he has not been back in A-Fib since that time.
He was permanently taken off of Eliquis after recurrent perinephric hematomas due to polycystic kidney disease.
Medical History
Past Medical History
Past Medical History: Reports Other
Additional Past Medical History:
Hypertension
GERD
Paroxysmal Atrial Fibrillation
Multiple Myeloma
ESRD and on HD Thursday
Mitral Valve Insufficiency
Pituitary Adenoma
Adrenal Insufficiency
Polyarteritis Nodosa
Polycystic Kidneys / Recurrent Perinephric Hemorrhage and Hematoma
Past Surgical History: Reports Other
Additional Past Surgical History:
Mitral valve repair
Right knee surgery
Pituitary mass resection
RUE AVF
Right Renal Artery Embolization
PVI Ablation
Social History
Tobacco: Non-smoker
Alcohol: Occasional
Personal:
Living: With Family
Employment: Employed
Family History
Family History: Not pertinent
Allergies / Home Medications
Allergies reflects when Allergies were last updated in [facility].
Home Medications with original date entered in [facility]
Allergy/Medication List:
Allergies
Allergy/AdvReac Type Severity Reaction Status Date / Time
levofloxacin (From Levaquin) Allergy Itching Verified 10/16/24 21:04
Home Medications
cinacalcet 30 mg tablet 30 mg PO HS Kidney Disease 09/20/19
acyclovir 200 mg capsule 200 mg PO BID Infection prevention 12/06/19
prednisone 5 mg tablet 5 mg PO DAILY Anti-Inflammatory 10/26/23
rosuvastatin 20 mg tablet 20 mg PO HS High Cholesterol 10/26/23
diltiazem HCl 180 mg capsule,extended release 24 hr 180 mg PO BID Heart disease/condition 06/07/24
ferric citrate 210 mg iron tablet (Auryxia) 210 mg PO MEALS Kidney Disease 08/29/24
amlodipine 5 mg tablet 5 mg PO DAILY 10/16/24
famotidine 10 mg tablet 10 mg PO DAILY 10/16/24
Review of Systems
-
History Source: Patient
A 12 point ROS was completed and negative except as noted: Yes
Constitutional: Reports Fatigue; Denies Fever, Weight Gain, Weight Loss or Chills
Respiratory: Reports Trouble Breathing; Denies Cough or Hemoptysis
Cardiac: Reports Chest Pain; Denies Diaphoresis, Palpitations or Syncope
Abdomen/GI: Reports Abdominal Pain; Denies Nausea, Vomiting, Diarrhea, Bloody Stools, Black Stools or Anorexia
: Denies Flank Pain
Musculoskeletal: Reports Edema; Denies Joint Pain
Neurological: Denies Dizzy or Headache
Psych: Denies Depression or Anxiety
Physical Exam
Vital Signs
Vital Signs
Temp Pulse Resp BP Pulse Ox
97.8 F 71 17 148/111 98
10/16/24 21:01 10/16/24 23:59 10/16/24 23:59 10/17/24 00:00 10/16/24 23:59
Physical Exam
General: Other (68y M in no acute distress.)
HEENT: Moist mucous membranes, PERRLA and Other (No JVD.)
Respiratory: Other (Few bibasilar rales. )
Cardiac: S1/S2, Irregular Rhythm and Murmur (II/ RIAN)
GI: Soft, Non Tender, Non Distended and Normal Bowel Sounds
Musculoskeletal: No Clubbing, No Cyanosis and Other (2+ pitting edema b/l LEs.)
Neuro: AO x 3
Laboratory Results
-
10/16/24 22:36
Laboratory Results
Total Bilirubin 0.7 mg/dl (0.2-1.3) 10/16/24 22:36
AST 30 U/L (17-59) 10/16/24 22:36
ALT 32 U/L (0-50) 10/16/24 22:36
Alkaline Phosphatase 77 U/L (38-126) 10/16/24 22:36
Lipase 90 U/L (23-300) 10/16/24 22:36
Impression/Plan
-
A/P: Patient is a 68y M with PMH significant for MM, ESRD on HD, hypertension and paroxysmal A-Fib s/p ablation who presents to ED complaining of subjective dyspnea.
SOB
- Admit for further evaluation and treatment.
- Gradual increase in symptoms over two months - CHF / volume mediated symptoms seem most likely.
- Check Echo (last done in May at outside facility: mild- moderate MR, LVEF = 55%).
- Nephrology evaluation. ? adjustment in UF / target weight / etc may alleviate symptoms.
- ? recurrent / paroxysmal A-Fib - monitor on telemetry for any arrhythmia.
- Cardiology evaluation for additional recommendations.
- Check serial troponin to rule out ischemia.
- Monitor for any new / worsening symptoms.
Hyperkalemia
ESRD on HD
- K = 6.4 on initial labs. Received temporizing measures and Lokelma in the ED.
- Nephrology consulted for HD needs during acute stay.
- Renal diet / fluid restriction.
- Continue usual outpatient medications.
Paroxysmal Atrial Fibrillation
- Irregular on exam. EKG does not appear to have clear P waves to me.
- Monitor on telemetry for definitive evidence for / against A-Fib.
- Cardiology evaluation as noted above.
- Continue diltiazem.
- Off of Eliquis given recurrent renal hemorrhages and prior ablation - ? if this would need to be re-visited in the event of recurrent A-Fib.
Valvular Heart Disease
- s/p remote mitral valve repair. Mild - moderate MR on most recent echo.
- Follow-up repeat study.
Benign Hypertension
- Stable. Continue usual regimen with holding parameters.
Multiple Myeloma
- In remission. Remains on monthly Emplicity
Pituitary Adenoma s/p Resection
Adrenal Insufficiency
- Stable. Continue current low dose prednisone daily.
Polycystic Kidneys
- s/p multiple cyst ruptures / hemorrhages in the past.
- Had R renal artery embolization.
- Eliquis stopped indefinitely during most recent admission (August 2024).
- CT A/P pending today for evaluation given upper abdominal / epigastric discomfort.
BALTA on CPAP
- Stable. Continue nightly PAP therapy.
DVT Prophylaxis: Subcut heparin
Code Status: Full
[2024-10-17 01:52] LABS: Glucose - Point of Care 51 mg/dl (70-99)
[2024-10-17] MEDS: DEXTROSE 50% SYRINGE 12.5 GRAMS IV (01:58)
[2024-10-17 02:17] LABS: Glucose - Point of Care 130 mg/dl (70-99)
[2024-10-17 03:32] LABS: Troponin I 0.059 ng/ml
[2024-10-17 03:39] LABS: Potassium 5.4 mmol/L (3.5-5.1)
[2024-10-17 04:20] LABS: Glucose - Point of Care 84 mg/dl (70-99)
--- NOTE | 2024-10-17 04:31 | PTCARENOTE ---
Patient arrived to [address] [place] [address] from ED via stretcher. Patient walked into room and blood work drawn. Potassium is 5.4 was 6.5, Troponin 0.058. Messaged GRAIN UNLOADER. Patient stable in room with no chest pain. Patient is scheduled for hemodialysis today (MWF).
Plan at this time is to await AM labs and continue to monitor.
[2024-10-17 06:36] LABS: Glucose - Point of Care 79 mg/dl (70-99)
[2024-10-17] MEDS: DELTASONE 5 MG PO (08:20)
[2024-10-17] MEDS: PEPCID 10 MG PO (08:21)
[2024-10-17] MEDS: TYLENOL 650 MG PO ×2 (08:22→15:39)
--- NOTE | 2024-10-17 08:25 | CON.CAR ---
Addendum entered and electronically signed by Fantasma Rivera DO 10/17/24 09:55:
I saw and examined the patient.
The Leasing Consultant's note was reviewed and I agree with the note.
Comment:
Plan:
Admitted 10/17/2024 with intermittent progressively worsening shortness of breath for several months.
Trend troponin until it peaks.
Cont med tx of nonMI troponin, likely secondary to HF
HF likely secondary to patient's difficulty completing his HD with his leg cramps and need for IVF
Nephrology following and will consider UF to help with volume. Pt already feels improved with HD
Check echo, pending.
If echo stable and troponin trends down likely cont med therapy
Remains in sinus.
Pt declines anticoagulation with prior history of recurrent renal bleeding and patient preference.
Original Note:
Consultation
Consultation Request
Date/Time Consultation Requested: 10/17/2024
Date/Time Consultation Performed: 10/18/2024
Requesting Provider: Dr. Medina
Performing Provider: Shantel Levy PA-C for Fantasma Rivera
Reason for Consultation: Dyspnea
Medical History
-
History of Present Illness:
Patient is a 68-year-old male with past medical history significant for paroxysmal atrial fibrillation, atypical atrial flutter s/p PVI/CTI flutter ablation June 2024, mitral valve repair in 1999, chronic right bundle branch block, end-stage renal
disease on hemodialysis, multiple myeloma, obstructive sleep apnea with CPAP history of hemorrhage of kidney with previous right renal embolization who presented to emergency department 10/16/2024 with intermittent dyspnea which has progressively
gotten worse over the last several months. proBNP elevated greater than 27,000. Chest x-ray pending. EKG showed sinus rhythm with PVCs, first-degree AV block and right bundle branch block. Troponin elevated at 0.059. Potassium found to be 6.4.
Patient was provided Lokelma and dextrose in emergency department. He also complained of upper abdominal/epigastric pain with CT of the abdomen and pelvis ordered. Cardiology being asked to see patient for concern of heart failure.
PMH:
Paroxysmal Afib and atypical atrial flutter
s/p PVI/CTI flutter ablation June 2024
Not chronically anticoagulated due to recurrent renal bleeding and patient preference
Polycystic Kidneys / Recurrent Perinephric Hemorrhage and Hematoma with previous right renal embolization
History of intermittent RBBB
s/p mitral valve repair in 1999 at [facility]
PVCs
Hypertension
End-stage renal disease secondary to MM, on hemodialysis M,W,F
Multiple myeloma receiving treatment with monoclonal antibodies and Pomalyst
Chronic anemia
Obstructive sleep apnea with CPAP
GERD
Pituitary adenoma status post resection
Adrenal insufficiency
Polyarteritis Nodosa
Past Medical History
Past Medical History: Other (in HPI)
Past Surgical History: Cardiac (MVR, PVI ablation/CTI flutter ablation 06/2024) and Other (Pituitary adenoma resection, right upper extremity AV fistula, right renal artery embolization, )
Social History
Tobacco: Non-Smoker
Alcohol: Occasional
Drug: None
Personal:
Living: With Family
Family History
Family History: CAD and Cancer
Allergies / Home Medications
Allergy/AdvReac Type Severity Reaction Status Date / Time
levofloxacin (From Levaquin) Allergy Itching Verified 10/16/24 21:04
�Medication �Instructions �Recorded �Confirmed �Type
cinacalcet 30 mg tablet 30 mg PO HS Kidney Disease 09/20/19 10/16/24 History
acyclovir 200 mg capsule 200 mg PO BID Infection prevention 12/06/19 10/16/24 History
prednisone 5 mg tablet 5 mg PO DAILY Anti-Inflammatory 10/26/23 10/16/24 History
rosuvastatin 20 mg tablet 20 mg PO HS High Cholesterol 10/26/23 10/16/24 History
diltiazem HCl 180 mg 180 mg PO BID Heart 06/07/24 10/16/24 History
capsule,extended release 24 hr disease/condition
ferric citrate 210 mg iron tablet 210 mg PO MEALS Kidney Disease 08/29/24 10/16/24 History
(Auryxia)
amlodipine 5 mg tablet 5 mg PO DAILY 10/16/24 10/16/24 History
famotidine 10 mg tablet 10 mg PO DAILY 10/16/24 10/16/24 History
Review of Systems
-
History Source: Patient
All other systems: Negative unless noted
Physical Exam
Vital Signs
Temp Pulse Resp BP Pulse Ox
97.8 F 73 17 143/93 96
10/17/24 03:01 10/17/24 03:01 10/17/24 03:01 10/17/24 03:01 10/17/24 03:01
GEN: No distress, awake, Ox3, currently on dialysis
HEENT: supple, anicteric, mmm
LUNGS: CTA, no wheezes/rales
CV: Reg, S1/S2, 2/6 murmur
ABD: soft, BS+, NT/ND
EXT: Trace edema, no clubbing or cyanosis
NEURO: Gross non-focal
SKIN: No rash, warm, dry, pink
Lab Results
Troponin I 0.059 ng/ml H* 10/17/24 02:53
Yxm-N-Zqsgeugysae Pept > 35034 pg/ml 10/16/24 22:36
Impression / Plan
-
PCP: Dr. Escobar
Primary Mathematics Instructor: Dr. Baird
EP: Dr. Tobin Watson
Impression:
Admitted 10/17/2024 with progressively worsening shortness of breath
Hyperkalemia
Abnormal troponin
Acute heart failure with preserved ejection fraction, proBNP greater than 27,000
Upper abdominal/epigastric discomfort
Paroxysmal Afib and atypical atrial flutter
s/p PVI/CTI flutter ablation June 2024
Not chronically anticoagulated due to recurrent renal bleeding and patient preference
Polycystic Kidneys / Recurrent Perinephric Hemorrhage and Hematoma with previous right renal embolization
History of intermittent RBBB
s/p mitral valve repair in 1999 at [facility]
PVCs
Hypertension
End-stage renal disease secondary to MM, on hemodialysis M,W,F
Multiple myeloma receiving treatment with monoclonal antibodies and Pomalyst
Chronic anemia
Obstructive sleep apnea with CPAP
GERD
Pituitary adenoma status post resection
Adrenal insufficiency
Polyarteritis Nodosa
Echo 10/17/2024: Ordered
Echo 05/12/2024 ([facility]): EF 55%, mild concentric LVH, status post mitral valve ring with mild to moderate MR, mild AI, moderate
MATT 09/21/19: EF 60%, mild cLVH, mod dilated LA, no XIOMY thrombus, partial mitral valve ring s/p MV repair functioning well, mean gradient 4mmHg, mild to mod central regurg, mild AR
Echo 11/14/21: EF 50 to 55%, mild concentric LVH, status post mitral valve repair with mean pressure gradient 2 mmHg and mild MR, mild aortic regurgitation
Cardiac catheterization 06/07/2024: Mild nonobstructive coronary artery disease.
Stress test at [facility] 05/12/2024:� large fixed perfusion defect consistent w/ infarction�with EF of 46% and some LV dilation.
Outpatient monitoring on 10/06/2024: Predominantly sinus rhythm with first-degree AV block/right bundle branch block and occasional accelerated idioventricular rhythm. 6 brief episodes of atrial tachycardia longest 11.3 minutes. PVC burden 8%.
There was no atrial fibrillation or atrial flutter noted.
Plan:
-Admitted 10/17/2024 with intermittent progressively worsening shortness of breath for several months.
-Concern for acute heart failure with preserved ejection fraction, proBNP greater than 27,000. Although patient reports weight at home has been around baseline.
-ESRD on HD M,W,F. Patient admits that his recent dialysis sessions have had to be terminated early secondary to significant cramping and he has required some IV fluids with treatment. Nephrology has been consulted. Diuresis through hemodialysis.
May require increased volume removal with UF. Patient currently on dialysis and reports he feels significantly better in the last 90 minutes since initiation.
-Hyperkalemia, noted to be 6.4 on admission. Patient was provided Lokelma and dextrose. Repeat potassium improved to 5.4 with repeat pending.
-Abnormal troponin, initial 0.059. EKG shows sinus rhythm without ischemic changes. Patient denies chest pain. Continue to monitor and trend to peak. He had mild nonobstructive CAD on cath June 2024. Suspect nonischemic myocardial injury
secondary to electrolyte disturbance, end-stage renal disease and possible heart failure exacerbation.
-Echo has been ordered.
-History of paroxysmal atrial fibrillation with pulse field PVI/CTI flutter ablation June 2024. Flecainide discontinued after ablation. EKG shows sinus rhythm with PVCs. Recent outpatient monitor as noted above demonstrated no atrial
fibrillation or flutter. He did have brief episodes of atrial tachycardia and occasional accelerated idioventricular rhythm. Continue diltiazem.
-Patient not on anticoagulation due to history of recurrent renal bleeding and patient preference.
HPI 10/17/2024:
Patient is a 68-year-old male with past medical history significant for paroxysmal atrial fibrillation, atypical atrial flutter s/p PVI/CTI flutter ablation June 2024, mitral valve repair in 1999, chronic right bundle branch block, end-stage renal
disease on hemodialysis, multiple myeloma, obstructive sleep apnea with CPAP history of hemorrhage of kidney with previous right renal embolization who presented to emergency department 10/16/2024 with intermittent dyspnea which has progressively
gotten worse over the last several months. proBNP elevated greater than 27,000. Chest x-ray pending. EKG showed sinus rhythm with PVCs, first-degree AV block and right bundle branch block. Troponin elevated at 0.059. Potassium found to be 6.4.
Patient was provided Lokelma and dextrose in emergency department. He also complained of upper abdominal/epigastric pain with CT of the abdomen and pelvis ordered. Cardiology being asked to see patient for concern of heart failure.
Data Reviewed
-
EKG: Report Reviewed by me, Discussed with Physician and Discussed with Patient
Labs: Labs Reviewed by me, Discussed with Physician and Discussed with Patient
Old Records: Reviewed
[2024-10-17 08:38] LABS: Hematocrit 33.8 % (39.0-52.0); Hemoglobin 11.0 g/dL (13.0-18.0); Mean Corp Hgb Conc. 32.5 g/dL (33.0-37.0); Mean Corpuscular Volume 93.4 fL (80.0-94.0); Platelet Count 115 10^3/uL (130-400); Red Cell Dist. Width 16.3 % (11.5-14.5)
[2024-10-17 08:40] LABS: Glucose - Point of Care 86 mg/dl (70-99)
--- NOTE | 2024-10-17 08:42 | W.CON.NEPH ---
Consultation
-
Date/Time Consultation Requested: 10/17/2024 7:30 AM
Date/Time Consultation Performed: 10/17/2024 8:45 AM
Requesting Provider: Dr. Castellano
Performing Provider: Dr. Leiva
Reason for Consultation: End-stage renal disease
Medical History
-
Chief Complaint: End-stage renal disease
History of Present Illness:
The patient is a 68-year-old male with a past medical history of end-stage renal disease due to multiple myeloma (treated with monthly Empicity) who dialyzes every Thursday at the [facility]. He is treated with
diltiazem for chronic atrial fibrillation and Cinacalcet for his secondary hyperparathyroidism. Although he has atrial fibrillation he is not maintained on chronic anticoagulation therapy due to prior history of spontaneous retroperitoneal
hemorrhage in 2021 which required bilateral renal artery embolization. He presented to the hospital last evening with complaints of increasing shortness of breath with associated chest tightness within the lower chest and epigastric region. He has
also had noted abdominal bloating. Chest x-ray findings were consistent with congestive heart failure due to volume overload and associated hyperkalemia. Nephrology was consulted for end-stage renal disease management.
Past Medical History
PAfib
Skin cancer
GERD
HTN
ESRD on HD MWF
MM
Neuropathy
dizziness
anemia
NUNES with history of right renal hemorrhage
Pituitary adenoma resection
Hyperphosphatemia
Secondary hyperparathyroidism
Right upper extremity AVF
Past Surgical History: Cardiac (MVR), Orthopedic (R knee surgery ) and Other (Right renal hemorrhage with intra-arterial embolectomy May 2021, Pancreatic cys)
Social History
Tobacco: Non-Smoker
Alcohol: Occasional
Drug: None
Personal:
Living: With Family
Family History
Family History: Not Pertinent
Allergies / Home Medications
Allergy/AdvReac Type Severity Reaction Status Date / Time
levofloxacin (From Levaquin) Allergy Itching Verified 10/16/24 21:04
�Medication �Instructions �Recorded �Confirmed �Type
cinacalcet 30 mg tablet 30 mg PO HS Kidney Disease 09/20/19 10/16/24 History
acyclovir 200 mg capsule 200 mg PO BID Infection prevention 12/06/19 10/16/24 History
prednisone 5 mg tablet 5 mg PO DAILY Anti-Inflammatory 10/26/23 10/16/24 History
rosuvastatin 20 mg tablet 20 mg PO HS High Cholesterol 10/26/23 10/16/24 History
diltiazem HCl 180 mg 180 mg PO BID Heart 06/07/24 10/16/24 History
capsule,extended release 24 hr disease/condition
ferric citrate 210 mg iron tablet 210 mg PO MEALS Kidney Disease 08/29/24 10/16/24 History
(Auryxia)
amlodipine 5 mg tablet 5 mg PO DAILY 10/16/24 10/16/24 History
famotidine 10 mg tablet 10 mg PO DAILY 10/16/24 10/16/24 History
Review of Systems
-
History Source: Patient
All other systems: Negative unless noted
Respiratory: Trouble Breathing
Cardiac: Chest Pain
: Other (Essentially baseline anuria)
Musculoskeletal: Edema
Physical Exam
Vital Signs
Vital Signs
Temp Pulse Resp BP Pulse Ox
98.1 F 83 18 155/105 96
10/17/24 07:30 10/17/24 07:30 10/17/24 07:30 10/17/24 07:30 10/17/24 07:30
Lab Results
10/17/24 08:20
WBC 7.5 10^3/uL (4.8-10.8) 10/17/24 08:20
RBC 3.62 10^6/uL (4.70-6.10) L 10/17/24 08:20
Hgb 11.0 g/dL (13.0-18.0) L 10/17/24 08:20
Hct 33.8 % (39.0-52.0) L 10/17/24 08:20
Plt Count 115 10^3/uL (130-400) L 10/17/24 08:20
eGFR 6.19 10/16/24 22:36
Gkq-B-Gdgyffuhtyf Pept > 59964 pg/ml 10/16/24 22:36
Albumin 4.5 g/dl (3.5-5.0) 10/16/24 22:36
Physical Exam
General: AOx3, Nontoxic , NAD
HEENT: PERRL, EOMI, Anicteric, Conjunctivae Clear, Ear/Nose Intact, Hearing Normal, Oropharynx Clear/Moist, Dentition Intact, Facial Symmetry, Neck Supple, Neck: Trachea Midline, No JVD and No Thyromegaly, no Bruits
Respiratory: Crackles bilaterally with normal lung exersion
Cardiac: S1/S2 and Regular Rate/Rhythm
Breast: Deferred by me
Abdomen: Soft, Nontender, Nondistended, Normal Bowel Sounds and No Hepatosplenomegaly
Rectal: Deferred by Provider
Genito-urinary: No Costovertebral Tenderness
Extremities: No Clubbing, No Cyanosis and +1 to +2 pretibial edema
Skin: No Rash or open lesions
Neuro: Nonfocal/Grossly Intact, CN II-XII (Intact) and Strength (Musculoskeletal exam 5 out of 5 both upper and lower extremities)
Hematologic/Lymphatic: No Cervical Lymphadenopathy, No Submandibular Lymphadenopathy and No Supraclavicular Lymphadenopathy
Psych: Mood/afflect pleasant, Insight/judgement good and Appropriate
Vascular: plus 2 pedal and radial pulses
Vascular Access: AVF (Right upper extremity AV fistula with good thrill and bruit)
Data Reviewed
-
Radiology: Report Reviewed by me (Chest x-ray personally reviewed notes small bilateral pleural effusions)
Medical Tests (Nuc Med, Echo etc): Other (EKG report reviewed on admission noting sinus rhythm)
Labs: Labs Reviewed by me (BMP CBC reviewed)
Old Records: Reviewed (Reviewed previous nephrology consultation and discharge summary from date 08/30/2024 and discharge summary from 08/31/2024)
Assessment/Plan
-
Impression:
Shortness of breath volume overload
Hyperkalemia
Abdominal bloating and discomfort
End-stage renal disease on Thursday dialysis cath
Anemia
History of multiple myeloma
History of NUNES
History of right renal hemorrhage
History of hyperphosphatemia
History of secondary hyperparathyroid
Hypertension
Paroxysmal atrial fibrillation with failed ablation June 2024
History of valvular heart disease status post remote mitral valve repair
History of pituitary adenoma resection with adrenal insufficiency
Plan:
Patient for dialysis today given volume overload and shortness of breath
Maintain binder therapy for hyperphosphatemia
Will push UF to 3 kg given symptomatic shortness of breath
Patient examines volume overloaded but patient cramps severely with pushing ultrafiltration
check cardiac echo
Trend hemoglobin
No heparin with dialysis
Eliquis on hold indefinitely
Maintain fluid restriction and proper dietary guidelines for ESRD
Maintain Sensipar for secondary hyperparathyroidism
--- NOTE | 2024-10-17 09:15 | W.PN.NEPH.HD ---
Assessment
-
Patient seen on dialysis
Systolic blood pressure of 135 at current UF
Attempting to lower dry weight however patient has significant cramping with larger volume UF treatments
Progress Note - Hemodialysis
-
Date of Service: October 17, 2024
Duration: 30 minutes and 3 hours
Potassium Bath: 2
Calcium Bath: 2.5
Opti-Dialyzer: 160
Ultrafiltration: Other (3kg as tolerated)
Blood Flow: 400
Dialysate Flow: 600
Heparin: none
EPO: none
[2024-10-17 09:18] LABS: Blood Urea Nitrogen 72 mg/dl (9-20); Calcium 9.0 mg/dl (8.4-10.2); Carbon Dioxide 26 mmol/L (22-30); Chloride 102 mmol/L (98-107); Estimated Creatinine Clearance 8 ml/min; Glucose 96 mg/dl (70-99); Magnesium 2.2 mg/dl (1.6-2.3); Potassium 5.3 mmol/L (3.5-5.1); Sodium 138 mmol/L (135-145); eGFR 5.64
[2024-10-17 09:37] LABS: Troponin I 0.071 ng/ml
[2024-10-17] MEDS: MANNITOL 25% 12.5 GRAMS IV (10:03)
[2024-10-17] MEDS: ZOVIRAX 200 MG PO ×2 (12:03→20:52)
[2024-10-17] MEDS: CARDIZEM CD 180 MG PO ×2 (12:03→20:52)
[2024-10-17] MEDS: NORVASC 5 MG PO (12:04)
--- NOTE | 2024-10-17 13:00 | W.PN.UPDATE ---
Update Note
Progress Note Update
Patient admitted 1:45 AM for volume overload and SOB
Evaluated by Cardiology/Nephrology and today completed HD with additional UF (3kg)
feels symptomatically better currently
for Echo
Assessment:
acute SOB with volume overload - acute HFpEF
ESRD on HD M/W/F
- Renal diet/fluid restriction.
- s/p HD with UF today
- Nephrology following; may provide additional UF in 24 hours
Acute hyperkalemia
- s/p temporization with Lokelma
- correct with HD
- repeat BMP in AM
- Nephrology following
- Renal diet/fluid restriction.
Nonischemic myocardial injury in setting of volume overload
- trend trops to peak
- Echo
- [facility] cardiology
Paroxysmal Atrial Fibrillation
s/p PVI/CTI flutter ablation June 2024
- Irregular on exam. EKG does not appear to have clear P waves to me.
- Monitor on telemetry for definitive evidence for / against A-Fib.
- Cardiology following.
- Continue diltiazem.
- Off of Eliquis given recurrent renal hemorrhages and prior ablation, patient preference
Upper abdominal/epigastric discomfort
- resolved
- CT: Mild distended appearance of the gallbladder with mild wall thickening. No stones appreciated. This could be reactive in nature with acute cholecystitis also consideration. If indicated, consider further evaluation with abdominal ultrasound.
- LFT normal; check Lipase
- AM US ordered
Valvular Heart Disease
- s/p remote mitral valve repair. Mild - moderate MR on most recent echo.
- Follow-up repeat study.
Benign Hypertension
- Stable. Continue usual regimen with holding parameters.
Multiple myeloma receiving treatment with monoclonal antibodies and Pomalyst
Pituitary Adenoma s/p Resection
Adrenal Insufficiency
- Stable. Continue current low dose prednisone daily.
Polycystic Kidneys
- s/p multiple cyst ruptures / hemorrhages in the past.
- Had R renal artery embolization.
- Eliquis stopped indefinitely during most recent admission (August 2024).
- CT A/P pending today for evaluation given upper abdominal / epigastric discomfort.
BALTA on CPAP
- Stable. Continue nightly PAP therapy.
Chronic anemia
GERD
DVT Prophylaxis: SC Heparin
Code Status: Full
[2024-10-17] MEDS: LIDOCAINE 4% PATCH 2 PATCH TOPICAL (13:18)
[2024-10-17 15:11] LABS: Troponin I 0.066 ng/ml
[2024-10-17] MEDS: DUONEB 3 ML INH (15:45)
[2024-10-17] MEDS: SENSIPAR 30 MG PO (21:05)
[2024-10-17] MEDS: CRESTOR 20 MG PO (21:05)
[2024-10-18 03:02] VITALS: BP 141/81
[2024-10-18] MEDS: TYLENOL 650 MG PO ×2 (03:26→08:53)
[2024-10-18 05:35] VITALS: BMI 28.5
[2024-10-18 06:45] LABS: Hematocrit 36.5 % (39.0-52.0); Hemoglobin 11.6 g/dL (13.0-18.0); Mean Corp Hgb Conc. 31.8 g/dL (33.0-37.0); Mean Corpuscular Volume 92.9 fL (80.0-94.0); Platelet Count 125 10^3/uL (130-400); Red Cell Dist. Width 16.4 % (11.5-14.5)
[2024-10-18 07:19] LABS: Blood Urea Nitrogen 45 mg/dl (9-20); Calcium 9.5 mg/dl (8.4-10.2); Carbon Dioxide 28 mmol/L (22-30); Chloride 98 mmol/L (98-107); Estimated Creatinine Clearance 10 ml/min; Glucose 67 mg/dl (70-99); Lipase 73 U/L (23-300); Magnesium 2.2 mg/dl (1.6-2.3); Potassium 4.9 mmol/L (3.5-5.1); Sodium 137 mmol/L (135-145); eGFR 8.03
--- NOTE | 2024-10-18 07:41 | PTCARENOTE ---
Potential rhythm change noted around 310 this AM. Rhtyhm was concerning for afib. Noted episodes of bradycardia, PVC couplets, bigeminy & trigeminy. [employer] notified, ECG ordered & completed showing NSR w/ PVCs, 1st Degree AV Block & RBBB. Pt remained
asymptomatic before & after ECG. . Pt educated on reason for performing ECG & importance of reporting symptoms. Pt reports no feelings of dizziness, chest pain or lightheadedness. Pt is in bed resting at this time. VSS. Call umanzor within reach. Pt
states no further needs at this time.
[2024-10-18 07:55] VITALS: BP 144/95
[2024-10-18] MEDS: LIDOCAINE 4% PATCH TOPICAL (08:35)
[2024-10-18] MEDS: ZOVIRAX 200 MG PO (08:37)
[2024-10-18] MEDS: DELTASONE 5 MG PO (08:37)
[2024-10-18] MEDS: PEPCID 10 MG PO (08:37)
--- NOTE | 2024-10-18 09:02 | W.PN.NEPH.HD ---
Assessment
-
Patient seen on isolated ultrafiltration treatment
Systolic blood pressure stable with current UF of 2 kg
Echocardiogram reviewed noting EF of 30 to 40% with underlying valvular abnormalities including moderate aortic stenosis
I suspect patient's ongoing issues with shortness of breath is due to declining heart function in setting of volume overload
He may require intermittent isolated UF treatments at our outpatient dialysis
I believe he is stable for discharge today following his ultrafiltration treatment
His next dialysis treatment will be scheduled for tomorrow at our dialysis [facility] unit
Progress Note - Hemodialysis
-
Date of Service: October 18, 2024
Duration: 30 minutes and 2 hours
Opti-Dialyzer: 160
Ultrafiltration: Other (Isolated ultrafiltration for 2 kg)
Blood Flow: 200
Heparin: None
EPO: none
--- NOTE | 2024-10-18 11:17 | CM ---
market research manager reviewed patient's chart and met with patient and patient lives with spouse in a 2 story home, 2 steps to enter, patient is independent with adl's and ambulation no dme, patient drives, patient goes to HD at [facility] home no needs
when stable.
PCP: Dr. Escobar
Pharmacy: [facility] in [place]
[facility]
[phone]
[2024-10-18 11:30] VITALS: BP 135/82
--- NOTE | 2024-10-18 11:37 | W.PN.CARDCBS ---
Addendum entered and electronically signed by Fantasma Rivera DO 10/18/24 15:16:
I saw and examined the patient.
The [employer] Leak [employer] Laborer's note was reviewed and I agree with the note.
Comment:
Plan:
Stable for d/c from cardiac standpoint.
Importance of compliance with meds and with HD has been discussed.
Avoid ACEI with hyperkalemia
CCB stopped for Coreg given CM
He had recent cath which did not show any obstructive disease.
Outpt follow up arranged
Original Note:
Today's Communication / Plan
-
Symptomatically improved with dialysis and additional UF session
Stop diltiazem and start carvedilol 6.25 mg twice a day
Avoid MAREK/ARB/ARNI secondary to hyperkalemia and CKD
Outpatient cardiology follow-up has been arranged
Stable for discharge from cardiac standpoint
Impression / Plan
-
PCP: Dr. Escobar
Primary Clothes Ironer: Dr. Baird
EP: Dr. Tobin Watson
Impression:
Admitted 10/17/2024 with progressively worsening shortness of breath
Hyperkalemia
Abnormal troponin
Acute heart failure with reduced ejection fraction, proBNP greater than 27,000
Upper abdominal/epigastric discomfort
Paroxysmal Afib and atypical atrial flutter
s/p PVI/CTI flutter ablation June 2024
Not chronically anticoagulated due to recurrent renal bleeding and patient preference
Polycystic Kidneys / Recurrent Perinephric Hemorrhage and Hematoma with previous right renal embolization
History of intermittent RBBB
s/p mitral valve repair in 1999 at [facility]
PVCs
Hypertension
End-stage renal disease secondary to MM, on hemodialysis M,W,F
Multiple myeloma receiving treatment with monoclonal antibodies and Pomalyst
Chronic anemia
Obstructive sleep apnea with CPAP
GERD
Pituitary adenoma status post resection
Adrenal insufficiency
Polyarteritis Nodosa
Echo 10/17/2024: EF 35 to 40%. Left ventricular cavity size 6.20 cm (moderately increased). Mild LVH. Global hypokinesis with hypo-/akinesis of inferior, inferolateral, mid septal and apical segments. Stage II DD. Moderate aortic stenosis with
peak/mean gradient 56/27 mmHg and KEYANA of 1.55 cm�. Mitral valve repair with peak/mean gradient 7/3 mmHg and mild MR. PAP 33 mmHg.
Echo 05/12/2024 ([facility]): EF 55%, mild concentric LVH, status post mitral valve ring with mild to moderate MR, mild AI, moderate
MATT 09/21/19: EF 60%, mild cLVH, mod dilated LA, no XIOMY thrombus, partial mitral valve ring s/p MV repair functioning well, mean gradient 4mmHg, mild to mod central regurg, mild AR
Echo 11/14/21: EF 50 to 55%, mild concentric LVH, status post mitral valve repair with mean pressure gradient 2 mmHg and mild MR, mild aortic regurgitation
Cardiac catheterization 06/07/2024: Mild nonobstructive coronary artery disease.
Stress test at [facility] 05/12/2024:� large fixed perfusion defect consistent w/ infarction�with EF of 46% and some LV dilation.
Outpatient monitoring on 10/06/2024: Predominantly sinus rhythm with first-degree AV block/right bundle branch block and occasional accelerated idioventricular rhythm. 6 brief episodes of atrial tachycardia longest 11.3 minutes. PVC burden 8%.
There was no atrial fibrillation or atrial flutter noted.
Plan:
-Admitted 10/17/2024 with intermittent progressively worsening shortness of breath for several months.
-Acute heart failure, proBNP greater than 27,000. Now found to have reduced ejection fraction with a EF of 35 to 40% on echo this admission.
-Patient's weight down at least 5 pounds with dialysis and addition of isolated ultrafiltration treatment on 10/17/2024 and 10/18/2024. Symptomatically he feels significantly better. Nephrology feels he may need isolated intermittent UF treatments
given newly reduced ejection fraction at outpatient dialysis center. He is scheduled to have outpatient dialysis tomorrow.
-Found to have newly reduced ejection fraction with EF of 35-40% echo this admission. Will attempt optimization of medical therapy. Blood pressures have been stable this admission. Stop diltiazem and start Coreg 6.25 mg twice a day. Patient not
candidate for MAREK-I/ARB/Aldactone, ARNI or SGLT2 secondary to end-stage renal disease and hyperkalemia. Could consider hydralazine or nitrates also with outpatient.
-Abnormal troponin,peaked at 0.071. EKG shows sinus rhythm without ischemic changes. Patient denied chest pain. He had mild nonobstructive CAD on cath June 2024. Suspect nonischemic myocardial injury secondary to electrolyte disturbance,
end-stage renal disease and possible heart failure exacerbation. Defer further ischemic workup to outpatient supervisor color paste mixing
-History of paroxysmal atrial fibrillation with pulse field PVI/CTI flutter ablation June 2024. Flecainide discontinued after ablation. EKG shows sinus rhythm with PVCs. Recent outpatient monitor as noted above demonstrated no atrial
fibrillation or flutter. He did have brief episodes of atrial tachycardia and occasional accelerated idioventricular rhythm. Stop diltiazem and switch to beta-macy given newly reduced EF.
-Patient not on anticoagulation due to history of recurrent renal bleeding and patient preference.
-Hyperkalemia, noted to be 6.4 on admission. Patient was provided Lokelma and dextrose. Repeat potassium improved to 4.9. Continue to monitor and follow closely with dialysis
Outpatient cardiology follow-up with Dr. Baird has been arranged and placed on discharge instructions
Plan discussed with patient, nursing and hospitalist
[facility] 10/17/2024:
Patient is a 68-year-old male with past medical history significant for paroxysmal atrial fibrillation, atypical atrial flutter s/p PVI/CTI flutter ablation June 2024, mitral valve repair in 1999, chronic right bundle branch block, end-stage renal
disease on hemodialysis, multiple myeloma, obstructive sleep apnea with CPAP history of hemorrhage of kidney with previous right renal embolization who presented to emergency department 10/16/2024 with intermittent dyspnea which has progressively
gotten worse over the last several months. proBNP elevated greater than 27,000. Chest x-ray pending. EKG showed sinus rhythm with PVCs, first-degree AV block and right bundle branch block. Troponin elevated at 0.059. Potassium found to be 6.4.
Patient was provided Lokelma and dextrose in emergency department. He also complained of upper abdominal/epigastric pain with CT of the abdomen and pelvis ordered. Cardiology being asked to see patient for concern of heart failure.
Progress Note - Clothes Ironer
Subjective
Date of Service: October 18, 2024
Patient seen and evaluated. Patient symptomatically significantly improved. He is eager to go home
Objective
Labs:
10/18/24 05:25
10/18/24 05:25
Labs
Hgb 11.6 g/dL (13.0-18.0) L 10/18/24 05:25
Hct 36.5 % (39.0-52.0) L 10/18/24 05:25
Plt Count 125 10^3/uL (130-400) L 10/18/24 05:25
Sodium 137 mmol/L (135-145) 10/18/24 05:25
Potassium 4.9 mmol/L (3.5-5.1) 10/18/24 05:25
BUN 45 mg/dl (9-20) H 10/18/24 05:25
Creatinine 7.0 mg/dL (0.7-1.3) H* 10/18/24 05:25
Glucose 67 mg/dl (70-99) L 10/18/24 05:25
Troponins
10/17/24 10/17/24 10/17/24
02:53 08:43 14:37
Troponin I 0.059 H* 0.071 H* 0.066 H*
Vital Signs and I&O:
Vital Signs
Temp Pulse Resp BP Pulse Ox
97.6 F 78 16 135/82 97
10/18/24 11:30 10/18/24 11:30 10/18/24 11:30 10/18/24 11:30 10/18/24 11:30
Vital Signs
Temp Pulse Resp BP Pulse Ox
97.6 F 78 16 135/82 97
10/18/24 11:30 10/18/24 11:30 10/18/24 11:30 10/18/24 11:30 10/18/24 11:30
Intake & Output
10/16/24 10/17/24 10/18/24 10/19/24
06:59 06:59 06:59 06:59
Intake Total 240 / 240 960 / 960
Balance 240 / 240 960 / 960
Physical Exam
Physical Exam
GEN: No distress, awake, Ox3, sitting in bed
HEENT: supple, anicteric, mmm
LUNGS: CTA, no wheezes/rales
CV: Reg, S1/S2, 2/6 murmur
ABD: soft, BS+, NT/ND
EXT: Trace edema, no clubbing or cyanosis
NEURO: Gross non-focal
SKIN: No rash, warm, dry, pink
[2024-10-18] MEDS: NORVASC 5 MG PO (11:52)
[2024-10-18] MEDS: CARDIZEM CD 180 MG PO (11:52)
--- NOTE | 2024-10-18 14:27 | W.PN.HOSP.TC ---
Addendum entered and electronically signed by Luan Castellano MD 10/19/24 09:07:
acute HF-R-EF (systolic)
Original Note:
Today's Communication/Plan
-
dc home
Assessment / Plan
Assessment / Plan
Assessment:
acute SOB with volume overload - acute HFpEF
ESRD on HD M/W/F
- Renal diet/fluid restriction.
- s/p HD with UF x2
- Nephrology following; may provide additional UF outpatient
Acute hyperkalemia
- s/p temporization with Lokelma
- corrected with HD
- Nephrology following
- Renal diet/fluid restriction.
Nonischemic myocardial injury in setting of volume overload
- trend trops to peak
Echo 10/17/2024: EF 35 to 40%. Left ventricular cavity size 6.20 cm (moderately increased). Mild LVH. Global hypokinesis with hypo-/akinesis of inferior, inferolateral, mid septal and apical segments. Stage II DD. Moderate aortic stenosis with
peak/mean gradient 56/27 mmHg and KEYANA of 1.55 cm�. Mitral valve repair with peak/mean gradient 7/3 mmHg and mild MR. PAP 33 mmHg.
- [facility] cardiology
Paroxysmal Atrial Fibrillation
s/p PVI/CTI flutter ablation June 2024
- Irregular on exam. EKG does not appear to have clear P waves to me.
- Monitor on telemetry for definitive evidence for / against A-Fib.
- Cardiology following.
- stop Cardizem, start Coreg
- Off of Eliquis given recurrent renal hemorrhages and prior ablation, patient preference
Upper abdominal/epigastric discomfort
- resolved
- CT: Mild distended appearance of the gallbladder with mild wall thickening. No stones appreciated. This could be reactive in nature with acute cholecystitis also consideration. If indicated, consider further evaluation with abdominal ultrasound.
- LFT normal; check Lipase
- US: Mild gallbladder wall thickening and gallbladder wall edema. Could be related to volume overload. No overt signs of acute rob (normal LFTs)
Valvular Heart Disease
- s/p remote mitral valve repair. Mild - moderate MR on most recent echo.
- Follow-up repeat study.
Benign Hypertension
- Stable. Continue usual regimen with holding parameters.
Multiple myeloma receiving treatment with monoclonal antibodies and Pomalyst
Pituitary Adenoma s/p Resection
Adrenal Insufficiency
- Stable. Continue current low dose prednisone daily.
Polycystic Kidneys
- s/p multiple cyst ruptures / hemorrhages in the past.
- Had R renal artery embolization.
- Eliquis stopped indefinitely during most recent admission (August 2024).
BALTA on CPAP
- Stable. Continue nightly PAP therapy.
Chronic anemia
GERD
DVT Prophylaxis: SC Heparin
Code Status: Full
More than 30 minutes spent in discharge including
Final examination of the patient
Summarizing hospital stay
Instructions for continuing care to all relevant caregivers
Preparation of discharge records, prescriptions, and referral forms
Total time spent (in minutes): 41
Anticipated Discharge: Today
Subjective/Interval History
-
Date of Service: October 18, 2024
resting comfortably, no complaints at present
Objective Data
-
Labs:
Laboratory Results
10/18/24
05:25
WBC 7.6
Hgb 11.6 L
Hct 36.5 L
Plt Count 125 L
Sodium 137
Potassium 4.9
Chloride 98
Carbon Dioxide 28
BUN 45 H
Creatinine 7.0 H*
Glucose 67 L
Calcium 9.5
Vital Signs:
Vital Signs
Temp Pulse Resp BP Pulse Ox
97.6 F 78 16 135/82 97
10/18/24 11:30 10/18/24 11:52 10/18/24 11:30 10/18/24 11:52 10/18/24 11:30
I&O
10/17/24 10/18/24 10/19/24
06:59 06:59 06:59
Intake Total 240 / 240 960 / 960
Balance 240 / 240 960 / 960
Physical Exam
-
General: No Apparent Distress
HEENT: Normocephalic and Atraumatic
Cardiac: Regular Rhythm and S1/S2
GI: Soft
Genito-urinary: No Costovertebral Tender
Neuro: AO x 3
Psych: Calm
Data Reviewed
-
Total Time Spent with Patient (in minutes): 42
Labs: Labs Reviewed by me
--- NOTE | 2024-10-18 14:34 | W.DS.TRANS ---
DC Summary - [employer]
-
Discharge Instructions:
Discharge Diagnosis/Procedures volume overload
Diet 2 Gram Sodium,Restrict fluids to 48 oz
Additional Diets 2 gram potassium restriction
Activity As tolerated
Instructions:
Stand-Alone Forms:
Changes to Home Medications: No
Discharge Medications:
DC Medications w/original date entered in [employer]
cinacalcet 30 mg tablet 30 mg PO HS Kidney Disease 09/20/19
acyclovir 200 mg capsule 200 mg PO BID Infection prevention 12/06/19
prednisone 5 mg tablet 5 mg PO DAILY Anti-Inflammatory 10/26/23
rosuvastatin 20 mg tablet 20 mg PO HS High Cholesterol 10/26/23
ferric citrate 210 mg iron tablet (Auryxia) 210 mg PO MEALS Kidney Disease 08/29/24
amlodipine 5 mg tablet 5 mg PO DAILY Blood Pressure 10/16/24
famotidine 10 mg tablet 10 mg PO DAILY Gastrointestinal Issue 10/16/24
carvedilol 6.25 mg tablet 6.25 mg PO BID #60 tabs 10/18/24
Home Medication Changes
Pending Results: No
Total time spent discharging patient (in min): 41
--- NOTE | 2024-10-18 15:25 | PTCARENOTE ---
Patient discharged home, transported by spouse. This RN removed patient's IV, tele pack removed by tech and vitals taken by tech stable. Patient dressed and gathered belongings in room independently. This RN reviewed discharge instructions with
patient and patient's spouse at bedside, both verbalized understanding. Patient transported to spouse's car at [facility] via staff escort and wheelchair.
[2024-10-18 15:49] VITALS: BP 144/95
--- NOTE | 2024-10-19 08:54 | PN.CDI ---
CDI
- -
CDI:
Physician Documentation Request
Admit Date: 10/17/24 02:02
Dear Doctor Gray,
Patient admitted with shortness of breath, volume overload, heart failure
10/17 echo showed an EF of 35-40%.
Cardiology refers to the heart failure as 'Acute heart failure with reduced ejection fraction' on 10/18.
Hospitalist as 'acute HFpEF'
In an attempt to clarify potentially conflicting documentation , please clarify the type of CHF you are evaluating, treating or monitoring.
Type
Systolic
Diastolic
Other
Use of terms such as suspected, likely, concern for, or probable (associated with a specific diagnosis that is being evaluated, monitored, or treated as if it exists) are acceptable and can be coded in the inpatient setting, when documented at the
time of discharge.
Thank you,
Kathryn Sheets RN, BSN
CDI Specialist
tiger text
Please use your independent medical judgment in providing your response.
== END 2024-10-18 16:47 | disposition home or self-care (01) | DRG 291 ==
LOC: 2 NORTH 02:02
PROVIDERS: ADMITTING PHYSICIAN Hospitalist; ATTENDING PHYSICIAN Internal Medicine; EMERGENCY PHYSICIAN Emergency Medicine; FAMILY PHYSICIAN Family Medicine; OTHER PHYSICIAN Nuclear Medicine Nuclear Cardiology; OTHER PHYSICIAN Specialist
PROC: 5A1D70Z Performance of Urinary Filtration, Intermittent, Less than 6 Hours Per Day (ICD-10-PCS; 2024-10-17)
DX: I13.2 Hypertensive heart and chronic kidney disease with heart failure and with stage 5 chronic kidney disease, or end stage renal disease (principal); I50.31 Acute diastolic (congestive) heart failure; N18.6 End stage renal disease; I48.4 Atypical atrial flutter; E27.40 Unspecified adrenocortical insufficiency; Q61.3 Polycystic kidney, unspecified; N25.81 Secondary hyperparathyroidism of renal origin; M30.0 Polyarteritis nodosa; K86.2 Cyst of pancreas; C90.00 Multiple myeloma not having achieved remission; I25.10 Atherosclerotic heart disease of native coronary artery without angina pectoris; I48.0 Paroxysmal atrial fibrillation; E78.00 Pure hypercholesterolemia, unspecified; G47.33 Obstructive sleep apnea (adult) (pediatric); E87.5 Hyperkalemia; I5A Non-ischemic myocardial injury (non-traumatic); D63.1 Anemia in chronic kidney disease; E83.39 Other disorders of phosphorus metabolism; G62.9 Polyneuropathy, unspecified; K21.9 Gastro-esophageal reflux disease without esophagitis; I34.0 Nonrheumatic mitral (valve) insufficiency; I44.0 Atrioventricular block, first degree; I49.3 Ventricular premature depolarization; Z99.2 Dependence on renal dialysis; Z88.1 Allergy status to other antibiotic agents; Z79.899 Other long term (current) drug therapy; Z79.52 Long term (current) use of systemic steroids
CPT/HCPCS: 71046; 74177; 76700; 80048; 80053; 82962; 83690; 83735; 83880; 84100; 84132; 84443; 84484; 85025; 85027; 87070; 93005; 93306; 94640; 99285; G0257; P9047; Q9967

== ENCOUNTER 2024-12-22 06:28 | Day surgery (SDC) | payer MEDICARE, OTHER, SELFPAY | END 2024-12-22 15:10 | disposition home or self-care (01) | LOC: GI 06:28 | PROVIDERS: ATTENDING PHYSICIAN Internal Medicine Gastroenterology | DX: Z12.11 Encounter for screening for malignant neoplasm of colon (principal); K64.8 Other hemorrhoids; K57.30 Diverticulosis of large intestine without perforation or abscess without bleeding; R19.4 Change in bowel habit; R12 Heartburn; R63.4 Abnormal weight loss; K44.9 Diaphragmatic hernia without obstruction or gangrene; K31.89 Other diseases of stomach and duodenum; K63.89 Other specified diseases of intestine | CPT/HCPCS: 43239; G0121; 88305; 88342 ==